=== PATIENT | female | born 1980 | race Caucasian/White ===

== ENCOUNTER 2019-09-17 18:16 | Emergency (ER) | payer MEDICAID, SELFPAY ==
[2019-09-17 18:21] VITALS: PULSE 82; RESP 14; TEMP 35.9; O2SAT 97; BMI 57.7
--- NOTE | 2019-09-17 18:37 | ECG_ITS ---
Measurements Intervals [place] Rate: 79 P: 17 RI: 132 QRS: 3 QRSD: 93 T: 12 QT: 373 QTc: 429 SINUS RHYTHM Compared to ECG 07/06/2016 01:30:08 T-wave abnormality no longer present Electronically Signed On 09-18-2019 22:04:56 CDT by Vilma Burnett M.D. [email or web address]
--- NOTE | 2019-09-17 19:07 | PC.NURSE ---
Report received from Galo, dealer account manager and care transferred to ARIANA Barth
[2019-09-17 19:09] LABS: Basophils % 0.6 %; Eosinophils # 0.2 10^3/uL (0.0-0.8); Hematocrit 36.9 % (37.0-47.0); Hemoglobin 11.2 g/dL (11.5-15.3); Lymphocytes # 1.5 10^3/uL (0.8-4.8); Lymphocytes % 20.1 %; Mean Corpuscular HGB Conc 30.4 g/dL (30.0-36.0); Mean Corpuscular Hemoglobin 24.9 pg (28.0-34.0); Mean Corpuscular Volume 82.2 fL (81-99); Mean Platelet Volume 10.8 fL (7.4-10.4); Monocytes # 0.6 10^3/uL (0.2-0.9); Monocytes % 8.4 %; Neutrophils # 4.9 10^3/uL (1.8-7.7); Neutrophils % 67.6 %; Nucleated Red Blood Cells % 0 %; Platelet Count 271 10^3/cmm (130-400); Red Blood Count 4.49 10^6/uL (4.1-5.3); Red Cell Distribution Width 15.6 % (12.1-15.1); White Blood Count 7.2 10^3/uL (4.0-10.0)
[2019-09-17] MEDS: aspirin 81 mg Chew Tablet 324 MG PO (19:17)
[2019-09-17 19:22] LABS: D Dimer <= 0.27 ug/mIFEU (0-0.59)
[2019-09-17 19:26] LABS: Alanine Aminotransferase 12 U/L (0-33); Albumin Level 4.1 g/dL (3.5-5.2); Alkaline Phosphatase 84 IU/L (35-105); Anion Gap 16.9 (5-19); Aspartate Amino Transferase 13 U/L (0-32); Blood Urea Nitrogen 8 mg/dL (6-20); Calcium 8.9 mg/dL (8.5-10.5); Carbon Dioxide 24 mmol/L (22-29); Chloride 99 mmol/L (98-107); Globulin 2.5 g/dL (1.3-4.6); Glomerular Filtration Rate 93.2 mL/min (90-130); Glucose 100 mg/dL (65-115); Lipase 27 U/L (13-60); Osmolality Calculated 278 mOsm/kg (285-295); Potassium 3.9 mmol/L (3.5-5.1); Sodium 136 mmol/L (136-145); Total Bilirubin 0.6 mg/dL (0.15-1.2); Total Protein 6.6 g/dL (6.6-8.7)
[2019-09-17 19:28] LABS: Troponin(5th) Baseline 6 ng/mL (0-10)
[2019-09-17] MEDS: ondansetron 2 mg/ML SDV 2 mL 4 MG IVP (19:30)
--- NOTE | 2019-09-17 19:30 | XR_ITS ---
WS: [id number] PORTABLE CHEST HISTORY: Chest pain COMPARISON: 07/05/2016 Lungs are clear and well expanded. No pleural effusion or pneumothorax. Cardiac size: Normal. Mediastinum/Aorta: Normal mediastinum. No osseous abnormality seen. XR/XR chest 1V portable [id number] IMPRESSION: Unremarkable portable chest.
[2019-09-17 19:32] VITALS: BP 162/100; PULSE 67; RESP 14; O2SAT 97
[2019-09-17] MEDS: ketorolac 30 mg/mL INJ 15 MG IVP (20:01)
[2019-09-17 20:02] VITALS: BP 145/86; PULSE 65; RESP 16; O2SAT 98
--- NOTE | 2019-09-17 20:07 | W.ED.CHESTPA ---
HPI - Chest Pain General: Chief Complaint: Chest Pain Stated Complaint: cp Time Seen by Provider: 09/17/19 18:37 History of Present Illness: HPI narrative: Ms. Goldsmith is a nice 38-year-old female who comes in complaining of right-sided chest pain. She states the pain began 2 weeks ago and has been constant since its onset. She describes the pain as a sharp pain that is made worse by standing and laying flat but at rest it is still present and feels sharp but less so. She denies any diaphoresis, nausea or vomiting, radiation of her pain, cough, fever, shortness of breath and she denies any injuries to this area. She not had anything like this before. She has tried Motrin, aspirin and Tylenol at home and they have helped only minimally. Associated symptoms: Deny abdominal pain, diaphoresis, dyspnea, fever(s), nausea, palpitations, syncope or vomiting Review of Systems Const: Denies: fever(s), chills, body aches, fatigue, malaise, night sweats or diaphoresis Eyes: Denies: change in vision, blurry vision or blind spots ENMT: Denies: throat pain, odynophagia, hoarseness, ear or mastoid pain, ear discharge, change in hearing or nasal discharge Card: Reports: chest pain; Denies: palpitations, irregular heart rhythm, lightheadedness, syncope, pre-syncope, dyspnea on exertion or orthopnea Resp: Denies: dyspnea, productive cough, non-productive cough, wheezing, hemoptysis or chest congestion GI: Denies: abdominal pain, nausea, vomiting, hematemesis, coffee ground emesis, heartburn, diarrhea, constipation, GI cramping, hematochezia or melena : Denies: flank pain, dysuria, urinary frequency, urinary urgency, oliguria, urinary incontinence or hematuria Musc: Denies: neck pain, back pain, extremity pain, extremity swelling, joint pain, joint swelling, joint redness, joint warmth or joint stiffness Skin/Breast: Denies: rash, pruritus, erythema, skin tenderness or jaundice Neuro: Denies: headache(s), numbness in extremities, weakness in extremities, sensory changes, lack of coordination, difficulty walking, dizziness, vertigo, confusion or Slurred speech present Endo: Denies: polyuria, polydipsia, tired all the time, cold intolerance, excessive sweating, flushing, hot flashes or heat intolerance Yosef/Lymph: Denies: easy bruising, easy bleeding, petechiae, purpura or enlarged lymph nodes All/Imm: Denies: urticaria, throat swelling, tongue swelling, facial swelling or acute wheezing PFSH ED PFSH: Medical History Anxiety Depression Surgical History H/O foot surgery Previous section S/P cholecystectomy S/P tonsillectomy Social History Smoking and tobacco status: never smoked Physical Exam Const: COMMON NORMALS: no acute distress, patient oriented x3, no limitations, healthy appearing and well nourished EXAM LIMITATIONS: no altered mental status GENERAL APPEARANCE: cooperative, well kempt and well developed HENMT: COMMON NORMALS: normocephalic, atraumatic, hearing grossly normal bilaterally, external ears normal, EAC's normal, Normal external nose present and moist oral mucous membranes HEAD & SCALP: normal to inspection, normocephalic and atraumatic FACE & SINUS: normal facial exam and face symmetric NOSE: Normal external nose present and Normal nares present EXTERNAL EAR: Yes external ears normal EXTERNAL AUDITORY CANAL: EAC's normal MOUTH: Normal oral and palatal mucosa present, lip normal and tongue normal Eye: COMMON NORMALS: Equal, round and reactive pupils present, EOMs intact bilaterally, conjunctivae normal and no scleral icterus GENERAL EYE: appearance normal, both eyes and all related structures ALIGNMENT: Yes alignment normal PERIORBITAL: periorbital findings normal EYELID: eyelids normal CONJUNCTIVA: Yes conjunctivae normal SCLERA: sclerae normal PUPIL: Yes Equal, round and reactive pupils present Neck/C-Spine: COMMON NORMALS: full ROM, no lymphadenopathy, supple, no meningeal signs and no JVD GENERAL: Yes normal visual inspection and Yes trachea midline CERVICAL SPINE: Yes cervical ROM normal Chest: COMMONS NORMALS: normal inspection of the chest and normal palpation of entire chest wall CHEST: Yes tenderness costochondral junction (Right upper chest) Resp: COMMON NORMALS: normal respiratory effort, No retractions, No use of accessory muscles and clear to auscultation bilaterally EFFORT & INSPECTION: Yes able to speak in complete sentences AUSCULTATION: clear to auscultation bilaterally, no crackles, no rales, no rhonchi and no wheezes Cardio: COMMON NORMALS: no JVD, regular rate, regular rhythm, S1 normal heart sound present, S2 normal heart sound present, No gallops present (Cardio), No clicks present (Cardio), No murmurs present (Cardio) and No rub (Cardio) RATE: regular rate RHYTHM: regular rhythm HEART SOUNDS: S1 normal heart sound present, S2 normal heart sound present, no click, no gallops, no murmurs and no rubs GI: COMMON NORMALS: Soft to palpation, non-tender, No hepatosplenomegaly present and no masses PALPATION: Yes Soft to palpation, No Tenderness to palpation present (GI), No Guarding due to palpation present (GI), No Rigid due to palpation, Yes No hepatosplenomegaly present, No Hernia present, No Palpable mass present and No Pulsatile mass present : COMMON NORMALS: Yes no CVA tenderness BLADDER/KIDNEY EXAM: Yes no CVA tenderness EXTERNAL FEMALE EXAM: No Hernia present Back/Pelvis: COMMON NORMALS: no CVA tenderness, thoracic and lumbar spine normal to inspection, no thoracic nor lumbar tenderness and thoraco-lumbar ROM normal Extremity: COMMON NORMALS: normal to inspection, full ROM, capillary refill normal, no joint enlargement, no clubbing, cyanosis or edema and no calf tenderness Neuro: COMMON NORMALS: patient oriented x3, CN's II-XII intact bilaterally, moves all extremities, no focal motor deficits and no sensory deficits noted MENINGEAL SIGNS: Yes no meningeal signs SPEECH: speech normal Psych: COMMON NORMALS: mental status grossly normal, Normal thought process present, cooperative, normal affect, speech normal and activity/motor behavior normal APPEARANCE: Yes well kempt SPEECH: Yes normal speech THOUGHT PROCESS: Normal thought process present Skin: COMMON NORMALS: no rashes or lesions noted, turgor normal, no jaundice, no petechiae and no mottling GENERAL SKIN EXAM: no rashes or lesions noted and turgor normal Course Vital Signs: Vital signs: Vital Signs Temperature 96.6 F L 09/17/19 18:21 Pulse Rate 68 09/17/19 20:58 Respiratory Rate 16 09/17/19 20:58 Blood Pressure 150/104 09/17/19 20:58 Pulse Oximetry 99 09/17/19 20:58 MDM - Chest Pain MDM Narrative: Medical decision making narrative: Josette is a very nice 38-year-old female who comes in complaining of chest pain. Her chest pain is right-sided and reproducible to palpation. Her heart score is 1. Her d-dimer is negative. She is low risk per Wells criteria so believe this rules out pulmonary embolism. She has pulses intact to all her extremities and a normal chest x-ray and I believe with a normal d-dimer this rules out dissection. Constant pain for this along with one EKG and troponin which are normal I believe rule out acute coronary syndrome. At this time the patient is feeling better after what I have given her. I think the most likely issue at this time would be costochondritis. The patient agrees to try higher dose Motrin at home along with something for her stomach and return if she worsens at all. Lab Data: Labs: Lab Results 09/17/19 09/17/19 09/17/19 Range/Units 18:37 19:00 19:00 WBC 7.2 (4.0-10.0) 10^3/ uL RBC 4.49 (4.1-5.3) 10^6/u L Hgb 11.2 L (11.5-15.3) g/dL Hct 36.9 L (37.0-47.0) % MCV 82.2 (81-99) fL MCH 24.9 L (28.0-34.0) pg MCHC 30.4 (30.0-36.0) g/dL RDW 15.6 H (12.1-15.1) % Plt Count 271 (130-400) 10^3/c mm MPV 10.8 H (7.4-10.4) fL Neut % (Auto) 67.6 % Lymph % (Auto) 20.1 % Reeves % (Auto) 8.4 % Eos % (Auto) 3.0 % Baso % (Auto) 0.6 % Neut # (Auto) 4.9 (1.8-7.7) 10^3/u L Lymph # (Auto) 1.5 (0.8-4.8) 10^3/u L Reeves # (Auto) 0.6 (0.2-0.9) 10^3/u L Eos # (Auto) 0.2 (0.0-0.8) 10^3/u L Baso # (Auto) 0.0 (0.0-0.1) 10^3/u L Nucleated RBC % (a uto) 0 % Nucleated RBCs # 0.0 /100WBC D-Dimer <= 0.27 (0-0.59) ug/mIFE U Sodium 136 (136-145) mmol/L Potassium 3.9 (3.5-5.1) mmol/L Chloride 99 (98-107) mmol/L Carbon Dioxide 24 (22-29) mmol/L Anion Gap 16.9 (5-19) BUN 8 (6-20) mg/dL Creatinine 0.7 (0.5-0.9) mg/dL GFR Calculation 93.2 (90-130) mL/min Glucose 100 (65-115) mg/dL Calculated Osmolal ity 278 L (285-295) mOsm/k g Calcium 8.9 (8.5-10.5) mg/dL Total Bilirubin 0.6 (0.15-1.2) mg/dL AST 13 (0-32) U/L ALT 12 (0-33) U/L Alkaline Phosphata se 84 (35-105) IU/L Troponin T Baselin e (0-10) ng/mL Troponin T 120 Min [place] (0-10) ng/mL Delta Troponin T (0-10) ABS# Total Protein 6.6 (6.6-8.7) g/dL Albumin 4.1 (3.5-5.2) g/dL Globulin 2.5 (1.3-4.6) g/dL Lipase 27 (13-60) U/L 09/17/19 09/17/19 Range/Units 19:00 20:19 WBC (4.0-10.0) 10^3/ uL RBC (4.1-5.3) 10^6/u L Hgb (11.5-15.3) g/dL Hct (37.0-47.0) % MCV (81-99) fL MCH (28.0-34.0) pg MCHC (30.0-36.0) g/dL RDW (12.1-15.1) % Plt Count (130-400) 10^3/c mm MPV (7.4-10.4) fL Neut % (Auto) % Lymph % (Auto) % Reeves % (Auto) % Eos % (Auto) % Baso % (Auto) % Neut # (Auto) (1.8-7.7) 10^3/u L Lymph # (Auto) (0.8-4.8) 10^3/u L Reeves # (Auto) (0.2-0.9) 10^3/u L Eos # (Auto) (0.0-0.8) 10^3/u L Baso # (Auto) (0.0-0.1) 10^3/u L Nucleated RBC % (a uto) % Nucleated RBCs # /100WBC D-Dimer (0-0.59) ug/mIFE U Sodium (136-145) mmol/L Potassium (3.5-5.1) mmol/L Chloride (98-107) mmol/L Carbon Dioxide (22-29) mmol/L Anion Gap (5-19) BUN (6-20) mg/dL Creatinine (0.5-0.9) mg/dL GFR Calculation (90-130) mL/min Glucose (65-115) mg/dL Calculated Osmolal ity (285-295) mOsm/k g Calcium (8.5-10.5) mg/dL Total Bilirubin (0.15-1.2) mg/dL AST (0-32) U/L ALT (0-33) U/L Alkaline Phosphata se (35-105) IU/L Troponin T Baselin e 6 (0-10) ng/mL Troponin T 120 Min [place] 6.00 (0-10) ng/mL Delta Troponin T 0 (0-10) ABS# Total Protein (6.6-8.7) g/dL Albumin (3.5-5.2) g/dL Globulin (1.3-4.6) g/dL Lipase (13-60) U/L Imaging Data^: CXR: My impression: No acute cardiopulmonary findings EKG Data^: EKG 1: Attestation: I personally reviewed and interpreted this EKG as follows: EKG interpretation date: 09/17/19 EKG interpretation time: 18:28 Interpretation: Normal sinus rhythm at 79 beats a minute, no acute ST or T wave changes. Discharge Plan Discharge Patient Disposition: Home, Self-Care Clinical Impression: Costalchondritis Chest pain Qualifiers: Chest pain type: chest pain on breathing Qualified Code(s): R07.1 - Chest pain on breathing Condition: Stable Prescriptions: New ibuprofen 800 mg tablet 800 mg PO TID PRN (Reason: pain) Qty: 30 RF: 0 [place] 5-325 mg tablet 1 tab PO Q6H PRN (Reason: pain) 5 Days Qty: 8 RF: 0 Zofran 4 mg tablet 4 mg PO Q6H PRN (Reason: nausea and vomiting) Qty: 20 RF: 0 No Action Tylenol 325 mg Tablet 325 mg PO QID PRN (Reason: Pain) RF: 0 aspirin 325 mg Tablet 325 mg PO Q4H PRN (Reason: Pain) RF: 0 ibuprofen 200 mg Tablet 200 mg PO Q6H PRN (Reason: Pain) RF: 0 Discharge Orders: Discharge Order (Routine); Ordered 09/17/19 Ordered By: Julia Salmon Referrals: Colette Moran FNP [Primary Care Provider] - 1-3 days Discharge Diet: Advance as tolerated Discharge Activity: Increase activity as tolerated Patient Instructions: Chest Pain (ED), Costochondritis (ED) Activity Restrictions/Additional Instructions: Please return to the ER immediately for any of the signs or symptoms listed on your discharge instruction sheets, worsening/changing of your symptoms, you are not getting better as quickly as expected, or for ANY other cause or concerns. If your pain persists for more than another 24 hours please return to the ER for recheck. 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
[2019-09-17 20:50] LABS: Troponin 5 2HR Delta 0 ABS# (0-10)
[2019-09-17 20:58] VITALS: BP 150/104; PULSE 68; RESP 16; O2SAT 99
== END 2019-09-17 21:00 | disposition home or self-care (01) ==
PROVIDERS: Emergency Provider Emergency Medicine; PCP Nurse Practitioner
DX: M94.0 Chondrocostal junction syndrome [Tietze] (principal); R07.1 Chest pain on breathing
CPT/HCPCS: 12345; 36415; 71045; 80053; 83690; 84484; 85025; 85378; 93005; 96374; 96375; 99282; 99284; J1885; J2405

== ENCOUNTER 2019-09-20 17:01 | Emergency (ER) | payer MEDICAID, SELFPAY ==
[2019-09-20 17:26] VITALS: BP 128/83; PULSE 101; RESP 18; TEMP 37.4; O2SAT 97; BMI 57.2
--- NOTE | 2019-09-20 17:44 | XR_ITS ---
WS: [id number] PORTABLE CHEST HISTORY: cough fever COMPARISON: 09/17/2019 Lungs are clear and well expanded. No pleural effusion or pneumothorax. Cardiac size: Normal. Mediastinum/Aorta: Normal mediastinum. No osseous abnormality seen. XR/XR chest 1V portable [id number] IMPRESSION: Unremarkable portable chest.
--- NOTE | 2019-09-20 17:55 | W.ED.CHESTPA ---
HPI - Chest Pain General: Chief Complaint: Chest Pain Stated Complaint: CP, fever, near syncope Time Seen by Provider: 09/20/19 17:44 Source: patient Mode of arrival: ambulatory Limitations: no limitations History of Present Illness: HPI narrative: Patient comes in today for complaints of centralized chest discomfort, and fever. Patient was seen 3 days ago and was diagnosed with costochondritis. Patient had talked further with her primary care physician and she felt it was more muscle and was given steroids for further treatment. Today patient felt lightheaded this morning when she got up and noticed that she was running a fever of 101. Patient appears mildly unwell. Patient appears in mild pain. Patient's was checked out cardiovascularly 2 days ago and was cleared at that time. MD complaint: chest heaviness Associated symptoms: Reports fever(s) Review of Systems General: Reports: 10 or more systems reviewed and unremarkable except in HPI and below Const: Reports: fever(s) Card: Reports: chest pain [facility] [place] [facility] PFSH: Medical History (Updated 09/20/19 @ 19:55 by ANTONY Durand) Anxiety Depression Surgical History H/O foot surgery Previous section S/P cholecystectomy S/P tonsillectomy Social History Smoking and tobacco status: never smoked Physical Exam Const: COMMON NORMALS: no acute distress and patient oriented x3 GENERAL APPEARANCE: cooperative HENMT: COMMON NORMALS: normocephalic, TM's normal bilaterally and Normal external nose present HEAD & SCALP: normal to inspection and normocephalic NOSE: Normal external nose present TYMPANIC MEMBRANE: TM's normal bilaterally MOUTH: Normal oral and palatal mucosa present THROAT: posterior oropharynx normal Eye: GENERAL EYE: appearance normal, both eyes and all related structures Neck/C-Spine: COMMON NORMALS: full ROM Lymph: LYMPHATIC: no lymphadenopathy noted Chest: COMMONS NORMALS: negative for normal palpation of entire chest wall (Mild anterior chest wall tenderness.) Resp: COMMON NORMALS: normal respiratory effort EFFORT & INSPECTION: Yes able to speak in complete sentences Cardio: COMMON NORMALS: regular rate and regular rhythm RATE: regular rate RHYTHM: regular rhythm GI: COMMON NORMALS: non-tender : COMMON NORMALS: Yes no CVA tenderness BLADDER/KIDNEY EXAM: Yes no CVA tenderness Back/Pelvis: COMMON NORMALS: no CVA tenderness and thoracic and lumbar spine normal to inspection Extremity: COMMON NORMALS: normal to inspection Neuro: COMMON NORMALS: patient oriented x3 and moves all extremities Psych: COMMON NORMALS: mental status grossly normal and cooperative Skin: COMMON NORMALS: no rashes or lesions noted GENERAL SKIN EXAM: no rashes or lesions noted Course Vital Signs: Vital signs: Vital Signs Temperature 99.3 F 09/20/19 17:26 Pulse Rate 91 09/20/19 22:00 Respiratory Rate 20 H 09/20/19 22:00 Blood Pressure 152/100 09/20/19 22:00 Pulse Oximetry 96 09/20/19 22:00 MDM - Chest Pain MDM Narrative: Medical decision making narrative: Patient comes in today for complaints of chest discomfort and fever. Patient reports for the last 3 to 4 days she has had similar symptoms and was evaluated 3 days ago and diagnosed with costochondritis. Since then her primary care ordered some steroid due to concern that it may be related to muscle pain. Exam notes decreased breath sounds, heart rates regular. Skin is warm and dry color is pink. No edema in the extremities. Vital signs are normal. Patient did report 101 temperature at home. Differential diagnosis includes pleurisy, pneumonia, pericarditis, myocarditis, bronchitis, lower respiratory infection, viral syndrome. Laboratory values noted a white blood cell count 20,000, CRP was elevated, troponin was negative. Influenza test was negative. Chest x-ray noted no obvious signs of infiltrate. D-dimer was negative. COVID testing was done and is outstanding. Reviewed exam with patient suspect may be a pleurisy secondary to a bacterial infection. Will start patient on Rocephin and continue with antibiotics as directed. Patient reported understanding and agreed to plan. Lab Data: Labs: Lab Results 09/20/19 09/20/19 09/20/19 Range/Units 18:10 18:10 18:10 WBC 20.0 H (4.0-10.0) 10^3/ uL RBC 4.59 (4.1-5.3) 10^6/u L Hgb 11.6 (11.5-15.3) g/dL Hct 37.7 (37.0-47.0) % MCV 82.1 (81-99) fL MCH 25.3 L (28.0-34.0) pg MCHC 30.8 (30.0-36.0) g/dL RDW 15.6 H (12.1-15.1) % Plt Count 258 (130-400) 10^3/c mm MPV 11.0 H (7.4-10.4) fL Neut % (Auto) 94.9 % Lymph % (Auto) 1.0 % [place] % (Auto) 2.9 % Eos % (Auto) 0.1 % Baso % (Auto) 0.3 % Neut # (Auto) 19.0 H (1.8-7.7) 10^3/u L Lymph # (Auto) 0.2 L (0.8-4.8) 10^3/u L [place] # (Auto) 0.6 (0.2-0.9) 10^3/u L Eos # (Auto) 0.0 (0.0-0.8) 10^3/u L Baso # (Auto) 0.1 (0.0-0.1) 10^3/u L Nucleated RBC % (a uto) 0 % Nucleated RBCs # 0.0 /100WBC D-Dimer (0-0.59) ug/mIFE U Sodium 135 L (136-145) mmol/L Potassium 4.0 (3.5-5.1) mmol/L Chloride 98 (98-107) mmol/L Carbon Dioxide 24 (22-29) mmol/L Anion Gap 17.0 (5-19) BUN 9 (6-20) mg/dL Creatinine 0.6 (0.5-0.9) mg/dL GFR Calculation 111.3 (90-130) mL/min Glucose 149 H (65-115) mg/dL Calculated Osmolal ity 279 L (285-295) mOsm/k g Lactic Acid 1.8 (0.5-2.2) mmol/L Calcium 8.5 (8.5-10.5) mg/dL Total Bilirubin 1.4 H (0.15-1.2) mg/dL AST 27 (0-32) U/L ALT 24 (0-33) U/L Alkaline Phosphata se 81 (35-105) IU/L Troponin T Gen 5 n g/L (0-10) ng/mL C-Reactive Protein (0.0-4.9) mg/L Total Protein 6.4 L (6.6-8.7) g/dL Albumin 3.8 (3.5-5.2) g/dL Globulin 2.6 (1.3-4.6) g/dL Urine Color (Yellow) Urine Appearance (CLEAR) Urine pH (5-7) Ur Specific Gravit y (1.005-1.030) Urine Protein (Negative) Urine Glucose (UA) (Normal) Urine Ketones (Negative) Urine Blood (Negative) Urine Nitrate (Negative) Urine Bilirubin (NEGATIVE) Urine Urobilinogen (Negative) mg/dL Ur Leukocyte Lorri ase (Negative) Urine RBC (0-2) /hpf Urine WBC (0-5) /hpf Ur Squamous Epith Cells (0-5) Urine Bacteria (NONE) Influenza Type A A g (Negative) Influenza Type B A g (Negative) 09/20/19 09/20/19 09/20/19 Range/Units 18:10 18:10 18:10 WBC (4.0-10.0) 10^3/ uL RBC (4.1-5.3) 10^6/u L Hgb (11.5-15.3) g/dL Hct (37.0-47.0) % MCV (81-99) fL MCH (28.0-34.0) pg MCHC (30.0-36.0) g/dL RDW (12.1-15.1) % Plt Count (130-400) 10^3/c mm MPV (7.4-10.4) fL Neut % (Auto) % Lymph % (Auto) % [place] % (Auto) % Eos % (Auto) % Baso % (Auto) % Neut # (Auto) (1.8-7.7) 10^3/u L Lymph # (Auto) (0.8-4.8) 10^3/u L [place] # (Auto) (0.2-0.9) 10^3/u L Eos # (Auto) (0.0-0.8) 10^3/u L Baso # (Auto) (0.0-0.1) 10^3/u L Nucleated RBC % (a uto) % Nucleated RBCs # /100WBC D-Dimer 0.36 (0-0.59) ug/mIFE U Sodium (136-145) mmol/L Potassium (3.5-5.1) mmol/L Chloride (98-107) mmol/L Carbon Dioxide (22-29) mmol/L Anion Gap (5-19) BUN (6-20) mg/dL Creatinine (0.5-0.9) mg/dL GFR Calculation (90-130) mL/min Glucose (65-115) mg/dL Calculated Osmolal ity (285-295) mOsm/k g Lactic Acid (0.5-2.2) mmol/L Calcium (8.5-10.5) mg/dL Total Bilirubin (0.15-1.2) mg/dL AST (0-32) U/L ALT (0-33) U/L Alkaline Phosphata se (35-105) IU/L Troponin T Gen 5 n g/L 8 (0-10) ng/mL C-Reactive Protein 41.2 H (0.0-4.9) mg/L Total Protein (6.6-8.7) g/dL Albumin (3.5-5.2) g/dL Globulin (1.3-4.6) g/dL Urine Color (Yellow) Urine Appearance (CLEAR) Urine pH (5-7) Ur Specific Gravit y (1.005-1.030) Urine Protein (Negative) Urine Glucose (UA) (Normal) Urine Ketones (Negative) Urine Blood (Negative) Urine Nitrate (Negative) Urine Bilirubin (NEGATIVE) Urine Urobilinogen (Negative) mg/dL Ur Leukocyte Lorri ase (Negative) Urine RBC (0-2) /hpf Urine WBC (0-5) /hpf Ur Squamous Epith Cells (0-5) Urine Bacteria (NONE) Influenza Type A A g (Negative) Influenza Type B A g (Negative) 09/20/19 09/20/19 Range/Units 19:30 19:30 WBC (4.0-10.0) 10^3/ uL RBC (4.1-5.3) 10^6/u L Hgb (11.5-15.3) g/dL Hct (37.0-47.0) % MCV (81-99) fL MCH (28.0-34.0) pg MCHC (30.0-36.0) g/dL RDW (12.1-15.1) % Plt Count (130-400) 10^3/c mm MPV (7.4-10.4) fL Neut % (Auto) % Lymph % (Auto) % [place] % (Auto) % Eos % (Auto) % Baso % (Auto) % Neut # (Auto) (1.8-7.7) 10^3/u L Lymph # (Auto) (0.8-4.8) 10^3/u L [place] # (Auto) (0.2-0.9) 10^3/u L Eos # (Auto) (0.0-0.8) 10^3/u L Baso # (Auto) (0.0-0.1) 10^3/u L Nucleated RBC % (a uto) % Nucleated RBCs # /100WBC D-Dimer (0-0.59) ug/mIFE U Sodium (136-145) mmol/L Potassium (3.5-5.1) mmol/L Chloride (98-107) mmol/L Carbon Dioxide (22-29) mmol/L Anion Gap (5-19) BUN (6-20) mg/dL Creatinine (0.5-0.9) mg/dL GFR Calculation (90-130) mL/min Glucose (65-115) mg/dL Calculated Osmolal ity (285-295) mOsm/k g Lactic Acid (0.5-2.2) mmol/L Calcium (8.5-10.5) mg/dL Total Bilirubin (0.15-1.2) mg/dL AST (0-32) U/L ALT (0-33) U/L Alkaline Phosphata se (35-105) IU/L Troponin T Gen 5 n g/L (0-10) ng/mL C-Reactive Protein (0.0-4.9) mg/L Total Protein (6.6-8.7) g/dL Albumin (3.5-5.2) g/dL Globulin (1.3-4.6) g/dL Urine Color Yellow (Yellow) Urine Appearance Hazy A (CLEAR) Urine pH 7 (5-7) Ur Specific Gravit y 1.005 (1.005-1.030) Urine Protein Neg (Negative) Urine Glucose (UA) Norm (Normal) Urine Ketones Negative (Negative) Urine Blood Neg (Negative) Urine Nitrate Negative (Negative) Urine Bilirubin Neg (NEGATIVE) Urine Urobilinogen Norm (Negative) mg/dL Ur Leukocyte Lorri ase Negative (Negative) Urine RBC 0-4 H (0-2) /hpf Urine WBC None (0-5) /hpf Ur Squamous Epith Cells 0-4 H (0-5) Urine Bacteria Trace (NONE) Influenza Type A A g Negative (Negative) Influenza Type B A g Negative (Negative) EKG Data^: EKG 1: Attestation: I personally reviewed and interpreted this EKG as follows: (1740, sinus tachy, rate 101 bpm regular, no ST elevation, no ectopy) Discharge Plan Discharge Patient Disposition: Home, Self-Care Clinical Impression: Pleurisy Condition: Stable Prescriptions: New cephalexin 500 mg capsule 500 mg PO Q6H 7 Days Qty: 28 RF: 0 No Action ibuprofen 800 mg tablet 800 mg PO TID PRN (Reason: pain) Qty: 30 RF: 0 hydrocodone-acetaminophen [[place]] 5-325 mg tablet 1 tab PO Q6H PRN (Reason: pain) 5 Days Qty: 8 RF: 0 ondansetron HCl [Zofran] 4 mg tablet 4 mg PO Q6H PRN (Reason: nausea and vomiting) Qty: 20 RF: 0 cyclobenzaprine 10 mg Tablet 10 mg PO TID PRN (Reason: Muscle Spasm) RF: 0 prednisone 20 mg Tablet 20 mg PO DAILY RF: 0 acetaminophen 500 mg Tablet 500 - 1,500 mg PO PRN RF: 0 Discharge Orders: Discharge Order (Routine); Ordered 09/20/19 Ordered By: Calin Fabian Referrals: Colette Moran FNP [Primary Care Provider] - Discharge Diet: Usual diet Discharge Activity: Increase activity as tolerated Patient Instructions: Pleurisy (ED) Activity Restrictions/Additional Instructions: Activity as tolerated. Drink plenty of fluids and take antibiotics as directed. Continue with routine medications as ordered. Self quarantine until results from COVID testing. If you have not heard from hospital in 3 days contact the emergency room charge nurse for assistance on results. Continue with Tylenol and ibuprofen for pain. Follow-up with primary care in 1 week for recheck. Return to the ER for worsening symptoms or new concerns. Coding Level of Care Code ED Cafeteria Aide for Chg Fwd Exam Comprehensive
[2019-09-20 18:29] LABS: Basophils # 0.1 10^3/uL (0.0-0.1); Basophils % 0.3 %; Eosinophils % 0.1 %; Hematocrit 37.7 % (37.0-47.0); Hemoglobin 11.6 g/dL (11.5-15.3); Lymphocytes # 0.2 10^3/uL (0.8-4.8); Mean Corpuscular HGB Conc 30.8 g/dL (30.0-36.0); Mean Corpuscular Hemoglobin 25.3 pg (28.0-34.0); Mean Corpuscular Volume 82.1 fL (81-99); Monocytes # 0.6 10^3/uL (0.2-0.9); Monocytes % 2.9 %; Neutrophils % 94.9 %; Nucleated Red Blood Cells % 0 %; Platelet Count 258 10^3/cmm (130-400); Red Blood Count 4.59 10^6/uL (4.1-5.3); Red Cell Distribution Width 15.6 % (12.1-15.1)
[2019-09-20] MEDS: sodium chloride 0.9% 1,000 ML 999 ML IV (18:35)
[2019-09-20 18:44] LABS: Lactic Sepsis W/Reflex 1.8 mmol/L (0.5-2.2)
[2019-09-20 18:45] LABS: Alanine Aminotransferase 24 U/L (0-33); Albumin Level 3.8 g/dL (3.5-5.2); Alkaline Phosphatase 81 IU/L (35-105); Aspartate Amino Transferase 27 U/L (0-32); Blood Urea Nitrogen 9 mg/dL (6-20); Calcium 8.5 mg/dL (8.5-10.5); Carbon Dioxide 24 mmol/L (22-29); Chloride 98 mmol/L (98-107); Globulin 2.6 g/dL (1.3-4.6); Glomerular Filtration Rate 111.3 mL/min (90-130); Glucose 149 mg/dL (65-115); Osmolality Calculated 279 mOsm/kg (285-295); Sodium 135 mmol/L (136-145); Total Bilirubin 1.4 mg/dL (0.15-1.2); Total Protein 6.4 g/dL (6.6-8.7)
[2019-09-20 18:47] LABS: Troponin T (5th) Once 8 ng/mL (0-10)
[2019-09-20 19:12] LABS: C Reactive Protein 41.2 mg/L (0.0-4.9)
[2019-09-20 21:03] VITALS: BP 141/95; PULSE 83; RESP 15; O2SAT 98
[2019-09-20 21:33] LABS: Add Urine Microscopic? YES; Bilirubin Urine Neg (NEGATIVE); Blood Urine Neg (Negative); Glucose Urine UA Norm (Normal); Ketones Urine Negative (Negative); Leukocyte Esterase Urine Negative (Negative); Nitrate Urine Negative (Negative); Protein Urine Neg (Negative); Specific Gravity, Urine 1.005 (1.005-1.030); Urine Appearance Hazy (CLEAR); Urine Color Yellow (Yellow); Urobilinogen Urine Norm (Negative); pH Urine 7 (5-7)
[2019-09-20 21:39] LABS: Add Urine Culture? No; Bacteria Urine TRACE; RBC Urine 0-4 /hpf (0-2); Squamous Epithelial Cell Urine 0-4 (0-5)
[2019-09-20 22:00] VITALS: BP 152/100; PULSE 91; RESP 20; O2SAT 96
[2019-09-20 22:10] LABS: Influenza A by IFA Negative (Negative); Influenza B by IFA Negative (Negative)
[2019-09-20 22:23] LABS: D Dimer 0.36 ug/mIFEU (0-0.59)
[2019-09-20] MEDS: cefTRIAXone 1,000 MG in sodium chloride 0.9% (plus) 50 ML 100 MG IV (22:56)
[2019-09-20 23:00] VITALS: BP 143/84; PULSE 82; RESP 14; O2SAT 98
[2019-09-20 23:45] VITALS: BP 149/79; PULSE 82; RESP 16; O2SAT 99
[2019-09-22 11:47] LABS: Quest SARS-CoV-2 RNA NOT DETECTED (NOT DETECTED)
== END 2019-09-20 23:46 | disposition home or self-care (01) ==
PROVIDERS: Emergency Provider Nurse Practitioner Family; PCP Nurse Practitioner
DX: R09.1 Pleurisy (principal)
CPT/HCPCS: 12345; 71045; 80053; 81001; 83605; 84484; 85025; 85378; 86140; 87040; 87635; 87804; 96360; 96361; 96365; 99283; 99284; J0696; J7030

== ENCOUNTER 2019-09-22 00:06 | Emergency (ER) | payer MEDICAID, SELFPAY ==
[2019-09-22 00:11] VITALS: BP 152/91; PULSE 97; RESP 20; TEMP 37.1; O2SAT 94; BMI 57.2
[2019-09-22 00:29] VITALS: PULSE 68
--- NOTE | 2019-09-22 00:45 | W.ED.EXTPRO ---
HPI - Extremity Problem General: Chief complaint: Extremity Problem,Nontraumatic Stated complaint: SUSPECTED SPIDER BITE ON R ARM Time Seen by Provider: 09/22/19 00:30 Source: patient Mode of arrival: ambulatory Limitations: no limitations History of Present Illness: HPI Narrative: Patient this evening noted a bruise to her right upper arm which she thinks may be a spider bite. Patient reports on Tuesday she had noticed a spider run across her chest but did not think much of it. Since that time patient has felt ill and has had nonspecific symptoms. Patient appears well. Patient appears in no acute distress. Patient was seen last night by this clinician for concerns of respiratory difficulty. Patient had COVID testing done and we are waiting results still. Review of Systems General: Reports: 10 or more systems reviewed and unremarkable except in HPI and below Skin/Breast: Reports: changing lesions [facility] ED PFSH: Medical History (Updated 09/22/19 @ 00:46 by ANTONY Durand) Anxiety Depression Surgical History H/O foot surgery Previous section S/P cholecystectomy S/P tonsillectomy Social History Smoking and tobacco status: never smoked Physical Exam Const: COMMON NORMALS: no acute distress and patient oriented x3 GENERAL APPEARANCE: cooperative HENMT: COMMON NORMALS: normocephalic and Normal external nose present HEAD & SCALP: normal to inspection and normocephalic NOSE: Normal external nose present MOUTH: Normal oral and palatal mucosa present THROAT: posterior oropharynx normal Eye: GENERAL EYE: appearance normal, both eyes and all related structures Neck/C-Spine: COMMON NORMALS: full ROM Lymph: LYMPHATIC: no lymphadenopathy noted Chest: COMMONS NORMALS: normal inspection of the chest Resp: COMMON NORMALS: normal respiratory effort EFFORT & INSPECTION: Yes able to speak in complete sentences Cardio: COMMON NORMALS: regular rate and regular rhythm RATE: regular rate RHYTHM: regular rhythm GI: COMMON NORMALS: non-tender : COMMON NORMALS: Yes no CVA tenderness BLADDER/KIDNEY EXAM: Yes no CVA tenderness Back/Pelvis: COMMON NORMALS: no CVA tenderness and thoracic and lumbar spine normal to inspection Extremity: COMMON NORMALS: normal to inspection Neuro: COMMON NORMALS: patient oriented x3 and moves all extremities Psych: COMMON NORMALS: mental status grossly normal and cooperative Skin: NARRATIVE SKIN EXAM: Patient has an area of ecchymosis approximately 3 cm circular to the right upper arm. Patient also has a surrounding area of redness that is approximately 4 cm from the edge of the ecchymotic area. Course Vital Signs: Vital signs: Vital Signs Temperature 98.8 F 09/22/19 00:11 Pulse Rate 68 09/22/19 00:29 Respiratory Rate 20 H 09/22/19 00:11 Blood Pressure 152/91 09/22/19 00:11 Pulse Oximetry 94 09/22/19 00:11 MDM - Extremity (Nontraumatic) MDM Narrative: Medical decision making narrative: Patient comes in today for concerns of insect bite to the right upper arm. Patient has been seen last night for general symptoms of malaise and some low-grade fever. Laboratory values last night indicated no significant abnormality except maybe some mild elevation in bilirubin at 1.4. The remainder of labs including d-dimer are negative. Differential diagnosis includes acute reaction to insect bite probable spider, allergic reaction, brown recluse spider bite, malingering. Will adjust patient steroid to give her a more appropriate dose for her size. Patient will continue with antihistamine routinely and will also continue with antibiotic as was started last night. Case management will be consulted for follow-up with wound care specialty for monitoring of the site. Discharge Plan Discharge Patient Disposition: Home, Self-Care Clinical Impression: Allergic reaction to spider bite Qualifiers: Encounter type: initial encounter Injury intent: accidental or unintentional Qualified Code(s): T63.301A - Toxic effect of unspecified spider venom, accidental (unintentional), initial encounter Condition: Stable Prescriptions: New cetirizine 10 mg tablet 10 mg PO BID Qty: 30 RF: 0 prednisone 20 mg tablet 20 mg PO BID Qty: 10 RF: 0 No Action ibuprofen 800 mg tablet 800 mg PO TID PRN (Reason: pain) Qty: 30 RF: 0 ondansetron HCl [Zofran] 4 mg tablet 4 mg PO Q6H PRN (Reason: nausea and vomiting) Qty: 20 RF: 0 cyclobenzaprine 10 mg Tablet 10 mg PO TID PRN (Reason: Muscle Spasm) RF: 0 prednisone 20 mg Tablet 20 mg PO DAILY RF: 0 acetaminophen 500 mg Tablet 500 - 1,500 mg PO PRN RF: 0 cephalexin 500 mg capsule 500 mg PO Q6H 7 Days Qty: 28 RF: 0 Discharge Orders: Discharge Order (Routine); Ordered 09/22/19 Ordered By: Calin Fabian Referrals: Colette Moran FNP [Primary Care Provider] - Discharge Diet: Usual diet Discharge Activity: Increase activity as tolerated Activity Restrictions/Additional Instructions: Home and rest. Drink plenty of fluids with medications. Prednisone can make you feel jittery which is normal. Use cetirizine as directed. Have the wound rechecked in 3 to 5 days. You may need further evaluation with wound care. Case management will contact you on Tuesday for further evaluation. Follow-up with primary care in 1 week. Coding Level of Care Code ED Typing Checker for Inga Fwayo Exam Comprehensive
[2019-09-22] MEDS: dexamethasone 10 mg/mL INJ IM (01:11)
[2019-09-22] MEDS: triamcinolone 40 mg/mL SDV IM (01:13)
[2019-09-22] MEDS: cetirizine 10 mg Tablet PO (01:14)
[2019-09-22 01:32] VITALS: PULSE 102; RESP 16; O2SAT 98
--- NOTE | 2019-09-25 13:15 | DCPLANNER ---
technology adoption manager had message to schedule a follow up appointment for patient with [facility]ound [facility]. technology adoption manager called [facility], spoke with Maritza, a follow up appointment is scheduled for Saturday, September 28, 2019 at 1:[address] Jackson. technology adoption manager called patient and informed patient of the scheduled appointment.
--- NOTE | 2019-10-11 13:51 | DCPLANNER ---
Patient did attend appointment scheduled for 09.28.19 with [facility].
== END 2019-09-22 01:33 | disposition home or self-care (01) ==
PROVIDERS: Emergency Provider Nurse Practitioner Family; PCP Nurse Practitioner
DX: T63.301A Toxic effect of unspecified spider venom, accidental (unintentional), initial encounter (principal); T78.40XA Allergy, unspecified, initial encounter
CPT/HCPCS: 12345; 96372; 96375; 99281; 99283; J1100; J3301

== ENCOUNTER 2019-09-24 15:09 | Emergency (ER) | payer MEDICAID, SELFPAY ==
[2019-09-24 15:27] VITALS: BP 149/90; PULSE 88; RESP 14; TEMP 36.1; O2SAT 98; BMI 57.2
--- NOTE | 2019-09-24 16:42 | W.ED.SKABFB ---
Documented by User: [email or web address] Nicole 09/24/19 18:40 HPI - Skin/Abscess/Foreign Bdy General: Chief complaint: Skin/Abscess/Foreign Body Stated complaint: spider bite Time Seen by Provider: 09/24/19 16:31 History of Present Illness: HPI narrative: Patient is a 38-year-old female who comes to the ED with skin lesion. Patient was seen here on Tuesday for same complaint. Patient was diagnosed with allergic reaction to possible spider bite and was sent home on steroid and antibiotic. Patient has been taking both medications since discharge and has not missed a dose. Associated symptoms: Deny chills, fever(s), nausea or vomiting Review of Systems Const: Denies: fever(s), chills or fatigue Eyes: Denies: change in vision or eye discomfort ENMT: Denies: throat pain, odynophagia, nasal discharge or nasal congestion Card: Denies: chest pain, palpitations, edema, swelling of feet/ankles, dyspnea on exertion or orthopnea Resp: Denies: dyspnea, productive cough or non-productive cough GI: Denies: abdominal pain, nausea, vomiting, diarrhea, constipation or hematochezia : Denies: flank pain, dysuria or hematuria Musc: Denies: neck pain, back pain or extremity swelling Skin/Breast: Reports: rash; Denies: new lesions Neuro: Denies: headache(s), numbness in extremities or weakness in extremities PFSH ED PFSH: Medical History Anxiety Depression Surgical History H/O foot surgery Previous section S/P cholecystectomy S/P tonsillectomy Social History Smoking and tobacco status: never smoked Physical Exam Const: COMMON NORMALS: patient oriented x3 HENMT: COMMON NORMALS: normocephalic HEAD & SCALP: normocephalic MOUTH: Normal oral and palatal mucosa present THROAT: posterior oropharynx normal and uvula midline Neck/C-Spine: COMMON NORMALS: supple GENERAL: Yes normal visual inspection Resp: COMMON NORMALS: normal respiratory effort, No retractions, No use of accessory muscles and clear to auscultation bilaterally AUSCULTATION: clear to auscultation bilaterally Cardio: COMMON NORMALS: regular rate, regular rhythm, S1 normal heart sound present, S2 normal heart sound present, No gallops present (Cardio), No clicks present (Cardio), No murmurs present (Cardio) and Peripheral pulses 2+ throughout RATE: regular rate RHYTHM: regular rhythm HEART SOUNDS: S1 normal heart sound present and S2 normal heart sound present PERIPHERAL PULSES: Peripheral pulses 2+ throughout GI: COMMON NORMALS: Normal to inspection, nondistended, normoactive bowel sounds present, Soft to palpation, non-tender and no masses PALPATION: Yes Soft to palpation : COMMON NORMALS: Yes no CVA tenderness BLADDER/KIDNEY EXAM: Yes no CVA tenderness Back/Pelvis: COMMON NORMALS: no CVA tenderness Neuro: COMMON NORMALS: patient oriented x3 and moves all extremities Course Vital Signs: Vital signs: Vital Signs Temperature 96.9 F L 09/24/19 15:27 Pulse Rate 88 09/24/19 17:56 Respiratory Rate 18 09/24/19 17:56 Blood Pressure 141/87 09/24/19 17:56 Pulse Oximetry 98 09/24/19 17:56 MDM - Skin/Abscess/Foreign Bdy MDM Narrative: Medical decision making narrative: Care of pt was transferred over to Kyle Galvan at end of my shift at 5pm. I discussed pt case with Cole before handing pt off with him. JRP Discharge Plan Discharge Patient Disposition: Home, Self-Care Clinical Impression: Allergic reaction to spider bite Qualifiers: Encounter type: initial encounter Injury intent: accidental or unintentional Qualified Code(s): T63.301A - Toxic effect of unspecified spider venom, accidental (unintentional), initial encounter Condition: Stable Prescriptions: New hydroxyzine HCl 25 mg tablet 25 mg PO Q8H PRN (Reason: itching) Qty: 14 RF: 0 hydrocodone-acetaminophen 5-325 mg tablet 1 tab PO Q6H PRN (Reason: pain) Qty: 14 RF: 0 Zithromax Z-Drake 250 mg tablet See Rx Instructions .ROUTE .COMPLEX Qty: 6 RF: 0 Discontinued cephalexin 500 mg capsule 500 mg PO Q6H 7 Days Qty: 28 RF: 0 cetirizine 10 mg tablet 10 mg PO BID Qty: 30 RF: 0 No Action ibuprofen 800 mg tablet 800 mg PO TID PRN (Reason: pain) Qty: 30 RF: 0 ondansetron HCl [Zofran] 4 mg tablet 4 mg PO Q6H PRN (Reason: nausea and vomiting) Qty: 20 RF: 0 acetaminophen 500 mg Tablet 500 - 1,500 mg PO PRN RF: 0 prednisone 20 mg tablet 20 mg PO BID Qty: 10 RF: 0 Benadryl 25 mg Capsule 25 mg PO PRN RF: 0 Discharge Orders: Discharge Order (Routine); Ordered 09/24/19 Ordered By: Logan Madera Referrals: Colette Moran FNP [Primary Care Provider] - Discharge Diet: Advance as tolerated Discharge Activity: Resume usual activity Patient Instructions: Brown Recluse Spider Bite (ED) Activity Restrictions/Additional Instructions: Stop medicine as directed take new medicine as directed follow-up with your family provider if no significant improvement Discharge Date/Time: 09/24/19 18:03 Coding Level of Care Code ED Electronic Engineering Draftsperson for Chg Fwd Exam Comprehensive Documented by User: ANTONY Chan 09/24/19 17:20 HPI - Skin/Abscess/Foreign Bdy General: Chief complaint: Skin/Abscess/Foreign Body Stated complaint: spider bite Time Seen by Provider: 09/24/19 16:31 Review of Systems Skin/Breast: Reports: rash (abdomen now), pruritus, erythema and skin pain PFSH ED PFSH: Medical History Anxiety Depression Surgical History H/O foot surgery Previous section S/P cholecystectomy S/P tonsillectomy Social History Smoking and tobacco status: never smoked Physical Exam Skin: RASHES: rashes noted and other (Patient has on her right lateral humerus area she has a small bruise in area about half dollar size and center with a red blanching macular type rash extending up about 3 to 4 inches in a regular fashion around the bruised area and then she has some maculopapular areas on her abdomen scattered no confluency noted with those mild erythema around the rash patient has no fever neurovascular status distal is intact no other complaints or problems) Course Vital Signs: Vital signs: Vital Signs Temperature 96.9 F L 09/24/19 15:27 Pulse Rate 88 09/24/19 17:56 Respiratory Rate 18 09/24/19 17:56 Blood Pressure 141/87 09/24/19 17:56 Pulse Oximetry 98 09/24/19 17:56 Discharge Plan Discharge Patient Disposition: Home, Self-Care Clinical Impression: Allergic reaction to spider bite Qualifiers: Encounter type: initial encounter Injury intent: accidental or unintentional Qualified Code(s): T63.301A - Toxic effect of unspecified spider venom, accidental (unintentional), initial encounter Condition: Stable Prescriptions: New hydroxyzine HCl 25 mg tablet 25 mg PO Q8H PRN (Reason: itching) Qty: 14 RF: 0 hydrocodone-acetaminophen 5-325 mg tablet 1 tab PO Q6H PRN (Reason: pain) Qty: 14 RF: 0 Zithromax Z-Drake 250 mg tablet See Rx Instructions .ROUTE .COMPLEX Qty: 6 RF: 0 Discontinued cephalexin 500 mg capsule 500 mg PO Q6H 7 Days Qty: 28 RF: 0 cetirizine 10 mg tablet 10 mg PO BID Qty: 30 RF: 0 No Action ibuprofen 800 mg tablet 800 mg PO TID PRN (Reason: pain) Qty: 30 RF: 0 ondansetron HCl [Zofran] 4 mg tablet 4 mg PO Q6H PRN (Reason: nausea and vomiting) Qty: 20 RF: 0 acetaminophen 500 mg Tablet 500 - 1,500 mg PO PRN RF: 0 prednisone 20 mg tablet 20 mg PO BID Qty: 10 RF: 0 Benadryl 25 mg Capsule 25 mg PO PRN RF: 0 Discharge Orders: Discharge Order (Routine); Ordered 09/24/19 Ordered By: Logan Madera Referrals: Colette Moran, [employer] [facility] [employer] [Primary Care Provider] - Discharge Diet: Advance as tolerated Discharge Activity: Resume usual activity Patient Instructions: Brown Recluse Spider Bite (ED) Activity Restrictions/Additional Instructions: Stop medicine as directed take new medicine as directed follow-up with your family provider if no significant improvement Discharge Date/Time: 09/24/19 18:03 Coding Level of Care Code ED Electronic Engineering Draftsperson for Inga Fwd Exam Comprehensive
--- NOTE | 2019-09-24 17:53 | PC.NURSE ---
PATIENT REFUSED NORCO BC/ SHE DIDNT WANT A NARCOTIC BUT STATED SHE DIDNT WANT TYLENOL OR NAPROXEN OR IBUPROPFEN STATING SHE DIDNT KNOW WHAT SHE WANTED THAT SHE WANTED THE PAIN TO GO AWAY AND FEELS LIKE SHE SHOULD HAVE HAD AN IV NERISSA INFORMED
[2019-09-24 17:56] VITALS: BP 141/87; PULSE 88; RESP 18; O2SAT 98
== END 2019-09-24 18:03 | disposition home or self-care (01) ==
PROVIDERS: Emergency Provider Nurse Practitioner Family; PCP Nurse Practitioner
DX: T63.301A Toxic effect of unspecified spider venom, accidental (unintentional), initial encounter (principal); T78.40XA Allergy, unspecified, initial encounter
CPT/HCPCS: 12345; 99281

== ENCOUNTER 2019-09-28 12:57 | Outpatient (CLI) | payer MEDICAID, SELFPAY | END 2019-09-28 12:58 | disposition home or self-care (01) | LOC: WOUND 12:57 | PROVIDERS: PCP Nurse Practitioner; Visit Provider Surgery | DX: Z09 Encounter for follow-up examination after completed treatment for conditions other than malignant neoplasm (principal) | CPT/HCPCS: 99212 ==

== ENCOUNTER → 2019-11-01 11:10 | Outpatient (BNVA) | payer MEDICAID, SELFPAY | PROVIDERS: PCP Nurse Practitioner; Visit Provider Nurse Practitioner Women's Health | DX: Z12.4 Encounter for screening for malignant neoplasm of cervix (principal); N93.9 Abnormal uterine and vaginal bleeding, unspecified | CPT/HCPCS: 88175 ==

== ENCOUNTER → 2019-11-29 14:09 | Outpatient (BNVA) | payer MEDICAID, SELFPAY | PROVIDERS: PCP Nurse Practitioner; Visit Provider Nurse Practitioner Women's Health | DX: N93.9 Abnormal uterine and vaginal bleeding, unspecified (principal) | CPT/HCPCS: 85025 ==

== ENCOUNTER → 2019-12-11 15:43 | Outpatient (BNVA) | payer MEDICAID, SELFPAY | PROVIDERS: PCP Nurse Practitioner; Visit Provider Nurse Practitioner Women's Health | DX: N93.9 Abnormal uterine and vaginal bleeding, unspecified (principal) | CPT/HCPCS: 85025; 88305 ==

== ENCOUNTER → 2020-02-21 12:13 | Outpatient (BNVA) | payer MEDICAID, SELFPAY | PROVIDERS: PCP Nurse Practitioner; Visit Provider Nurse Practitioner Women's Health | DX: N93.9 Abnormal uterine and vaginal bleeding, unspecified (principal) | CPT/HCPCS: 85027 ==

== ENCOUNTER → 2020-03-05 09:46 | Outpatient (BNVA) | payer MEDICAID, SELFPAY | PROVIDERS: PCP Nurse Practitioner; Referring Provider Nurse Practitioner; Visit Provider Specialist | DX: M25.561 Pain in right knee (principal); M25.562 Pain in left knee | CPT/HCPCS: 73560; 73565 ==

== ENCOUNTER 2020-05-30 14:04 | Outpatient (CLI) | payer BC, MEDICAID, SELFPAY ==
--- NOTE | 2020-05-30 14:09 | USCV_ITS ---
Josette Goldsmith Age: 39 Gender: F : 1980 Exam Date: 05/30/2020 14:50 Ordering Phys: Serafin Godoy M.D ([email or web address]) Technologist: Astrid Pereyra Exam Location: [facility] [place] Indication: CHEST PAIN BP: 120 / 80 HR: 72 Rhythm: Sinus Technical Quality: Very difficult MEASUREMENTS (Male / Female) Normal Values 2D ECHO LV Diastolic Diameter PLAX 3.6 cm 4.2 - 5.9 / 3.9 - 5.3 cm LV Systolic Diameter PLAX 3.0 cm LV Chamber Size 4.3 cm IVS Diastolic Thickness 1.5 cm 0.6 - 1.0 / 0.6 - 0.9 cm IVS Systolic Thickness 2.0 cm LVPW Diastolic Thickness 1.4 cm 0.6 - 1.0 / 0.6 - 0.9 cm LVPW Systolic Thickness 2.0 cm RV Chamber Size 3.6 cm LVOT Diameter 2.0 cm LV Ejection Fraction 2D Teich 26.8 % LA Diameter 3.5 cm LA Width 2.6 cm LA Height 4.4 cm RA Width 3.1 cm RA Height 4.1 cm Aorta at Sinotubular Diameter 2.9 cm M-MODE LV Diastolic Diameter MM 5.7 cm 4.2 - 5.9 / 3.9 - 5.3 cm LV Systolic Diameter MM 3.8 cm LV Ejection Fraction MM Teich 61.7 % IVS Diastolic Thickness MM 0.9 cm 0.6 - 1.0 / 0.6 - 0.9 cm IVS Systolic Thickness MM 1.7 cm LVPW Diastolic Thickness MM 1.7 cm 0.6 - 1.0 / 0.6 - 0.9 cm LVPW Systolic Thickness MM 2.1 cm RV Diastolic Diameter MM 0.9 cm Aortic Annulus Diameter 3.6 cm LA Ao Ratio MM 1.1 MV E Point Septal Separation 0.3 cm DOPPLER AV Peak Velocity 115.0 cm/s LVOT Peak Velocity 72.7 cm/s AV Area Cont Eq vti 2.0 cm squared AV Area Cont Eq pk 2.0 cm squared MV Area PHT 4.5 cm squared Mitral E to A Ratio 1.0 MV E' Velocity 35.5 cm/s Mitral E to MV E' Ratio 8.4 Mitral E to LV E' Lateral Ratio 7.3 Mitral E to LV E' Septal Ratio 10.1 TR Peak Velocity 169.3 cm/s TR Peak Gradient 11.5 mmHg TR Mean Velocity 129.3 cm/s TR Mean Gradient 7.3 mmHg TR Velocity Time Integral 43.1 cm TV Peak E Velocity 68.0 cm/s Right Atrial Pressure 3.0 mmHg Pulmonary Artery Systolic Pressu 14.5 mmHg PV Peak Velocity 57.0 cm/s RV Acceleration Time 0.2 s RV Ejection Time 0.3 s RV AcT/ET 0.5 FINDINGS Left Ventricle This is technically very limited study. Cardiac structures are not well-visualized. Grossly LV systolic function is however cannot assess regional wall motion abnormalities because of poor visualization. Right Ventricle Grossly normal Right Atrium Not well-visualized Left Atrium Not well-visualized Mitral Valve Grossly normal Aortic Valve Not well-visualized. No significant aortic stenosis is seen. Tricuspid Valve Not well visualized. RVSP can not be calculated because of limited visualization. Pulmonic Valve Not visualized Pericardium Normal pericardium without effusion. Aorta Normal ascending aorta dimension. CONCLUSIONS Poor visualization of cardiac structures secondary to limited ultrasonic windows. Grossly LV systolic function is mildly reduced. Cannot assess regional wall motion abnormalities because of poor visualization. Valvular structures are not well visualized however no gross major abnormality. No comparison studies are available. Serafin Godoy MD (Electronically Signed) Final Date: 08 June 2020 13:56 S
== END 2020-05-30 14:05 | disposition home or self-care (01) ==
PROVIDERS: PCP Nurse Practitioner; Visit Provider Internal Medicine
DX: R07.9 Chest pain, unspecified (principal)
CPT/HCPCS: 85025; 93306

== ENCOUNTER → 2020-07-24 13:21 | Outpatient (BNVA) | payer BC, MEDICAID, SELFPAY | PROVIDERS: PCP Nurse Practitioner; Visit Provider Internal Medicine | DX: R07.9 Chest pain, unspecified (principal); I50.9 Heart failure, unspecified | CPT/HCPCS: 36415; 80048; 85025; 85610; 87635 ==

== ENCOUNTER → 2020-08-07 16:06 | Outpatient (BNVA) | payer BC, MEDICAID, SELFPAY | PROVIDERS: PCP Nurse Practitioner; Visit Provider Nurse Practitioner | DX: Z01.812 Encounter for preprocedural laboratory examination (principal); Z20.822 Contact with and (suspected) exposure to COVID-19 | CPT/HCPCS: 87635 ==

== ENCOUNTER 2020-08-13 12:43 | Outpatient (CLI) | payer BC, MEDICAID, SELFPAY ==
--- NOTE | 2020-08-13 13:41 | PFTS_ITS ---
Date of Study:08/13/20 Date of Dictation: MECHANICS: Forced vital capacity (FVC) is normal. Forced expiratory volume in one second (FEV1) is reduced. FEV1/FVC is normal. FLOW VOLUME LOOP: Normal. LUNG VOLUMES: Total lung capacity (TLC) is reduced. Residual volume (RV) is reduced. DIFFUSING CAPACITY FOR CARBON MONOXIDE: Normal. INTERPRETATION: The postbronchodilator spirometry is consistent with mild restriction. There is no significant postbronchodilator response. Lung volumes are consistent with mild restriction. Gas exchange (DLCO) is normal. MTDD
== END 2020-08-13 12:44 | disposition home or self-care (01) ==
LOC: RT 12:46
PROVIDERS: PCP Nurse Practitioner; Visit Provider Nurse Practitioner
DX: R05 Cough (principal)
CPT/HCPCS: 94060; 94726; 94729; J7611

== ENCOUNTER 2020-08-19 08:03 | Observation (INO) | payer BC, MEDICAID, SELFPAY ==
--- NOTE | 2020-08-19 06:20 | XACV_ITS ---
Exam Room: [facility] Ht: 165 cm Wt: 160 kg BSA: 2.81 m2 Gender: Female : 1980 Any Known Allergies: Other Exam Priority: Routine Procedure(s): Procedure Description: Diagnostic procedure Procedure Description: Miscellaneous Procedure Description: ACT Procedure Description: Coronary Angiography Procedure Description: Left heart cath Procedure Description: LV gram Diagnostic Cath Status: Elective Diagnostic Findings * We initially obtained access in the right radial artery. RCA was engaged with a [place] catheter, however, patient had significant spasm while manipulating the catheter to engage left main artery. We switched access to right femoral artery. Left main artery was successfully engaged from the femoral artery access. * No significant disease noted in the Left Main, LAD, Circumflex, or RCA coronary arteries. * Coronary angiography shows right dominance. Conclusions 1. No significant disease noted in the Left Main, LAD, Circumflex, or RCA coronary arteries. 2. Mild left ventricular systolic dysfunction. Ejection fraction of 45%. Recommendations * Aggressive risk factor control. * Weight loss advised. * Outpatient cardiology follow up. Interventional RX Recommendation: medical therapy and/or counseling Diagnostic RX Recommendation: medical therapy and/or counseling Anticoagulation: Heparin Ventriculography Ejection Fraction: 45.0 % Pressures Phase:Rest AO : 155 / 122 ( 137 ) @ 7:22:00 AM 147 / 115 ( 132 ) @ 7:46:00 AM 150 / 84 ( 111 ) @ 7:51:00 AM 152 / 72 ( 110 ) @ 7:51:00 AM LV : 149 / -10 / 10 @ 7:50:00 AM 155 / -16 / 13 @ 7:51:00 AM 157 / -14 / 14 @ 7:51:00 AM Valves Phase:DefaultPhase AV : 6.0 @ 11:19:32 AM 6.0 @ 11:19:32 AM AV Mean Gradient: 10.0 @ 11:19:32 AM 10.0 @ 11:19:32 AM Clinical Evaluation EBL: 5mL-10mL Procedural Details Procedure Consent Obtained. Current Diagnosis : Chest Pain. Pre-Procedure Time Out. Identified patient by full name and date of as verbalized by the patient/guarantor. Does the consent match the physician's order: Yes. Accurate & Complete Informed Consent: Yes. Inpatient/Outpatient History & Physical on Chart: Yes. If H&P is completed, is and addenduem needed: No; If yes, is the addendum complete: N/A. Visualize and Verify Site with Patient/Guarantor: N/A. Relevant Radiology Images available: Yes. Pre-op teaching completed and patient verbalized understanding. The risks, benefits, and alternatives of sedation and/or procedure were discussed by physician. The patient agrees to continue. Procedure started. [facility] Clinical Fraility Score: 3: Managing Well. Territory Supervisor Indications: New Onset Angina. Chest Pain Symptom Assessment: Typical Angina Symptoms. Cardiovascular Instability: No. Correct patient, site and procedure confirmed by cath team. PERRLA. 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 Lungs clear x 5 lobes. IV Site on Arrival: 20 gauge in the left anticubital. IV Fluids: 0.9% NaCl at KVO. 0 mL infused prior to clinical lab specialist. Pre Procedural Pulses: bilateral dorsalis pedis was 1+. Pre Procedural Pulses: bilateral posterior tibial was 1+. Pre Procedural Pulses: right radial was 3+. Oxygen started at 2liters/min via nasal canula. right groin was prepped with chloroprep then draped in the usual sterile fashion. right radial was prepped with chloroprep then draped in the usual sterile fashion. Baseline sample Acquired. HR: 75 BPM. Patient's spouse, Andi, was going to leave the hospital for a bit and come back later. Dr. Godoy will update him via cell phone witht he findings of the procedure. Equipment: 6F - Radial. Cardiac Cath Pack. ACIST Manifold Kit Model BT 2000. Heparinized Saline (2 units/mL), 1000 mL bag. Physician arrived. Physician scrubbed in. Immediate Pre-Procedure Time Out. Correct Patient: Yes; Correct Procedure: Yes; Correct Site: Yes; Correct Patient Position: Yes; Correct Supplies: Yes; Dried Flammable Prep: Yes; Blood Products Available: N/A. Lidocaine 1% infiltrated to the right radial. Arterial access obtained. A 5 [place] TIG catheter in over the exchange wire. Multiple views taken of right coronary artery. Catheter redirected to the LCA, unable to cannulate. Catheter removed over the exchange wire. A 5 [place] JL3.5 catheter in over the exchange wire, unable to cannulate. Catheter removed over the exchange wire. A 5 [place] JL4 catheter in over the exchange wire, unable to cannulate. A 5 [place] JL3.5 catheter in over the exchange wire, unable to cannulate. Catheter removed over the exchange wire. Will move to femoral access. Lidocaine 1% infiltrated to the right groin. Arterial access obtained with micropuncture set, using ultrasound guidance. A 5 [place] JL4 catheter in over the exchange wire. Multiple views taken of left coronary artery. Catheter removed over the exchange wire. A 5 [place]abian Angled Pig catheter in over the exchange wire. EDP Sample taken: LV 149/-11,10; HR: 74 BPM; SpO2: 100%. LV gram performed in NETTLES @ 10 mL/second for a total of 30 mL. EDP Sample taken: LV 155/-17,13; HR: 69 BPM; SpO2: 100%. Pullback taken: LV 157/-15,14; AO 150/84(111); Mean: 10mmHg, Peak to Peak: 6mmHg, SEP: 20sec/min; HR: 69 BPM; SpO2: 100%. Catheter removed over the exchange wire. Patient's family updated by Colt Howell RN, K 9 HANDLER/ DEPUTY. A Right femoral angiogram was performed to determine safe placement of closure device. ACT drawn. Results 129 seconds. Therapeutic limits - pre-heparin administration 90-150 seconds and monitoring heparin during a vascular procedure >250 seconds. TR band placed. Hemostasis obtained. AngioSeal placed without complications. No signs or symptoms of hematoma noted. Sterile dressing applied per usual sterile fashion. A Manual Compression was successful obtaining hemostatsis at the Right Femoral artery insertion site. A TR Band was successful obtaining hemostatsis at the Right Radial artery insertion site. Post Procedure: Pulses reassessed and unchanged. PERRLA. 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 No VTE prophylaxis required. Contrast type used: Visipaque 320 mgI/mL, 500 mL bottle. Complications: None. Estimated blood loss: 5mL-10mL. Post-op diagnosis: Chest Pain. Sheath(s) removed and manual pressure held until hemostasis was achieved. Sterile 4x4 and Op-site applied to the puncture site. No oozing or hematoma noted. Post sheath removal instructions were given and the patient verbalized understanding. Medication's Wasted: Lidocaine 1% = 10 mL. Medication's Wasted: Nitro = 49.8 mg. Medication's Wasted: Heparin = 1000 units. Total IV fluids: 100 mL. Procedure completed. Patient transferred by bed to ICU. Access Site Site: Right Radial artery Sheath Size: 6 Fr Hemostasis Method: TR Band Hemostasis Success: Successful Site: Right Femoral artery Sheath Size: 6 Fr Hemostasis Method: Manual Compression Hemostasis Success: Successful Procedure Medications Start: 7:49 AM Stop: 7:49 AM Medication: Versed Amount: 1 mg Route: I.V. Start: 7:50 AM Stop: 7:50 AM Medication: Fentanyl Amount: 25 mcg Route: I.V. Start: 7:50 AM Stop: 7:50 AM Medication: Zofran (ondansetron) Amount: 4 mg Route: I.V. Start: 7:50 AM Stop: 7:50 AM Medication: Versed Amount: 1 mg Route: I.V. Start: 7:50 AM Stop: 7:50 AM Medication: Fentanyl Amount: 25 mcg Route: I.V. Start: 7:52 AM Stop: 7:52 AM Medication: Versed Amount: 1 mg Route: I.V. Start: 7:54 AM Stop: 7:54 AM Medication: Fentanyl Amount: 50 mcg Route: I.V. Start: 7:56 AM Stop: 7:56 AM Medication: Versed Amount: 1 mg Route: I.V. Start: 7:56 AM Stop: 7:56 AM Medication: Nitrogylcerin Amount: 200 mcg Route: I.A. Start: 8:00 AM Stop: 8:00 AM Medication: Heparin Amount: 5000 units Route: I.V. Start: 8:01 AM Stop: 8:01 AM Medication: Versed Amount: 1 mg Route: I.V. Start: 8:13 AM Stop: 8:13 AM Medication: Versed Amount: 1 mg Route: I.V. Start: 8:18 AM Stop: 8:18 AM Medication: Nitrogylcerin Amount: 200 mcg Route: I.A. Start: 8:22 AM Stop: 8:22 AM Medication: Fentanyl Amount: 50 mcg Route: I.V. Start: 8:24 AM Stop: 8:24 AM Medication: Fentanyl Amount: 50 mcg Route: I.V. Start: 8:33 AM Stop: 8:33 AM Medication: Versed Amount: 1 mg Route: I.V. Start: 8:38 AM Stop: 8:38 AM Medication: Versed Amount: 1 mg Route: I.V. Start: 8:59 AM Stop: 8:59 AM Medication: Fentanyl Amount: 50 mcg Route: I.V. Start: 9:01 AM Stop: 9:01 AM Medication: Fentanyl Amount: 25 mcg Route: I.V. I, the attending physician, have reviewed and verified all procedure medications. Yes, all medications given per verbal order History/Risk Factors Hypertension: No Dyslipidemia: No Peripheral Arterial Disease (PAD): No Myocardial Infarction (MS): No Obesity: No Renal Disease: No Tobacco Use: Never Prior Interventions PCI: No CABG: No Valve Surgery: No Report Signatures Finalized by Serafin Godoy MD on 09/01/2020 05:24 PM
[2020-08-19 06:21] VITALS: BP 163/103; PULSE 84; RESP 20; TEMP 36.7; O2SAT 96; BMI 58.6
[2020-08-19] MEDS: diphenhydrAMINE 50 mg Capsule PO (06:39)
--- NOTE | 2020-08-19 07:38 | W.PM.OPSFHP ---
Same Day Surgery H&P Indication for Procedure/HPI DATE OF PROCEDURE: August 19, 2020 CHIEF COMPLAINT/INDICATIONFOR SURGICAL PROCEDURE: Chest pain/ LV dysfunction PREOP DIAGNOSIS: Chest pain/ LV dysfunction PLANNED PROCEDRUE: Operation Date: 08/19/20 07:00 Proposed Procedures p Cardiac Catheterization left(Left) - Serafin Godoy M.D 39-year-old woman with no significant cardiac history, with obesity with a BMI of 58 has been referred for recent onset chest pain. According to patient she has been noticing substernal chest discomfort over the last 1-2 months. She had a Covid infection in January 2020. At times it is exertional but she was also noted rest pain. It has radiated to left arm. ECHO showed mildly reduced LV function.Plan for left heart cath today ROS CONSTITUTIONAL: No fever chills weight loss or gain or night sweats. [] HEENT: Normocephalic, atraumatic.[] RESPIRATORY: No cough, sputum, hemoptysis or wheezing.[] CARDIOVASCULAR: No shortness of breath, chest pain, PND, orthopnea, lower extremity edema, presyncope or syncope. [] GI: no nausea vomiting diarrhea. 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 [] MUSCULOSKELETAL: No knee or joint pain or rashes. [] Medications/Allergies* Home Medications Medication Instructions Recorded Confirmed Type albuterol sulfate 90 mcg/actuation 2 puff INHALATION Q6H PRN 03/24/20 08/19/20 History aerosol inhaler Allergies/Adverse Reactions Allergy/AdvReac Type Severity Reaction Status Date / Time sulfamethoxazole Allergy ALGY-Rash Verified 06/30/20 15:46 [From Bactrim] trimethoprim [From Bactrim] Allergy ALGY-Rash Verified 06/30/20 15:46 Current Medications: Generic Name Dose Route Start Last Admin Trade Name Freq PRN Reason Stop Dose Admin Sodium Chloride 1,000 mls @ 50 mls/hr 08/19/20 06:20 08/19/20 06:39 Sodium Chloride 0.9% IV 08/20/20 02:19 Not Given .Q20H ONE Pertinent History/Comorbid Conditions* Medical History (Updated 05/10/20 @ 20:43 by Serafin Godoy M.D) Anxiety Depression No pertinent past medical history neg hx: htn,dm,thyroid,dvt/pe Surgical History (Updated 11/01/19 @ 11:02 by Janna Vyas APN, CARLIE) H/O foot surgery (~1991) left-- fracture in growth plate Previous section (~2010) S/P cholecystectomy (~01/2019) S/P tonsillectomy Family History (Updated 12/11/19 @ 15:24 by Janna Vyas APN, CARLIE) Diabetes Grandmother Grandfather Father Brother Family/Other Maternal aunt Heart disease Grandmother Maternal grandmother Grandfather Paternal grandfather Maternal grandfather Mother Hyperlipidemia Grandmother Grandfather Breast cancer Family/Other Paternal Cousin--dx'd in her early 30s Family history of thyroid problem Mother Hypertension Grandmother Grandfather Mother Uterine cancer Grandmother, Onset Age: 50 MGM Stroke Grandmother Paternal grandmother Grandfather Paternal grandfather Denies family history of Colon cancer Ovarian cancer Social History Additional social history: - Tobacco use: Denies Alcohol use: Denies Drug use: Denies Pertinent Exam Findings alert, oriented x 3, clear to auscultation bilaterally and regular rate & rhythm GENERAL: Patient is alert, awake and oriented x3. [] NECK: No jugular vein distension. [] HEENT: No cyanosis. No icterus. No pallor. [] HEART: Regular S1 and S2. No murmur, rub or gallop. [] LUNGS: Clear to auscultate bilaterally. [] ABDOMEN: Soft, nontender and nondistended. Positive bowel sounds. No guarding, rebound or tenderness. [] CENTRAL NERVOUS SYSTEM: Grossly nonfocal. [] EXTREMITIES: Lower extremities with no edema bilaterally. Pulses palpable in the lower extremities, both dorsalis pedis and posterior tibial. [] Conscious Sedation Assessment PATIENT ASSESSED PRIOR TO SEDATION, WITH NO CHANGE NOTED: Yes AIRWAY EVAL/ANESTHESIA PLAN: normal airway, see other exam findings, ASA III, Monitored Anesthesia, Local Anesthesia, Risks, benefits & alternatives of sedation and/or procedure discussed and Patient agrees to continue as planned Recommendations Surgery/Procedure today (Coronary angiogram/left heart cath/possible percutaneous coronary intervention) Coding Level of Care Code Acute Weed Eradicator for Inga Estevez
--- NOTE | 2020-08-19 10:15 | PC.NURSE ---
Patient was transferred to ICU at 0930 via bed. Dressing was in place on right groin with firmness noted around site ad Dr. richardson. TR band in place on right wrist. Doppler was used and radial and dorsalis pedis pulses were present. Pressure was held on right groin site for 10 minuets. Patient complained of nausea and pain at groin site.
[2020-08-19] MEDS: ondansetron 2 mg/ML SDV 2 mL 4 MG IVP (10:34)
[2020-08-19 10:47] VITALS: BP 120/76; PULSE 67; RESP 18
--- NOTE | 2020-08-19 11:58 | PC.NURSE ---
TR band removed at 1155 and dressing was applied to a non bleeding site. No hematoma was noted.
[2020-08-19] MEDS: acetaminophen 325 mg Tablet 650 MG PO (12:21)
[2020-08-19 14:03] VITALS: BP 131/84; PULSE 72; RESP 18; TEMP 36.5; O2SAT 99
--- NOTE | 2020-08-19 14:16 | PC.NURSE ---
Patient sat up on edge of bed at 1435 and was able to get dressed with at bedside.
--- NOTE | 2020-08-19 14:51 | PC.NURSE ---
Patient was taken to personal vehicle at 1445 with discharge papers in hands. Radial site dressing was dry and intact with no hematoma noted. Femoral site has slight hematoma present but slightly smaller than when admitted to ICU. Dressing dry and intact.
== END 2020-08-19 14:45 | disposition home or self-care (01) ==
LOC: ICU 08:04
PROVIDERS: Admitting Provider Internal Medicine; PCP Nurse Practitioner; Visit Provider Internal Medicine
DX: R07.9 Chest pain, unspecified (principal); E66.9 Obesity, unspecified; Z68.43 Body mass index [BMI] 50.0-59.9, adult; Z86.16 Personal history of COVID-19; F41.9 Anxiety disorder, unspecified; F32.9 Major depressive disorder, single episode, unspecified
CPT/HCPCS: 36415; 85347; 93452; C1769; C1887; C1894; G0378; J1644; J2250; J2405; J3010; J3490; J7030; Q0163; Q9967

== ENCOUNTER 2020-08-22 11:08 | Outpatient (CLI) | payer BC, MEDICAID, SELFPAY ==
--- NOTE | 2020-08-22 11:13 | USCV_ITS ---
Josette Goldsmith Age: 39 Gender: F : 1980 Exam Date: 08/22/2020 11:24 Ordering Phys: Serafin Godoy M.D ([email or web address]) Technologist: Andi Wright Exam Location: [facility] [place] Indication: post cath wrist pain Risk Factors: Previous Vascular Surgery: Right BP: / Left BP: / RIGHT LEFT PSV PSV (cm/s) (cm/s) Waveform Waveform 91.4 Subclavian Proximal 82.0 Axillary 0.0 Radial Proximal 0.0 Radial Mid 0.0 Radial at Wrist 67.6 Ulnar at Wrist FINDINGS No flow found in right radial artery, Post cath Triphasic Doppler waveforms in the right subclavian, axillary, brachial and ulnar artery No Doppler flow signals are noted in the right radial artery CONCLUSIONS 1. Features of occlusion of the right radial artery. 2. Patent right ulnar, brachial, axillary and subclavian artery with normal flow pattern. Dr. Godoy was informed about this finding Dr Pamela Ayon MD [facility] (Electronically Signed) Final Date: 25 Aug 2020 10:42 S
== END 2020-08-22 11:09 | disposition home or self-care (01) ==
LOC: RAD 11:11
PROVIDERS: PCP Nurse Practitioner; Visit Provider Internal Medicine
DX: M79.601 Pain in right arm (principal)
CPT/HCPCS: 93931

== ENCOUNTER 2020-08-22 23:32 | Emergency (ER) | payer BC, MEDICAID, SELFPAY ==
[2020-08-22 23:35] VITALS: BP 163/101; PULSE 77; RESP 18; TEMP 36.6; O2SAT 99; BMI 58.7
[2020-08-23 00:35] VITALS: PULSE 74
--- NOTE | 2020-08-23 00:35 | PC.NURSE ---
patient states she had an angiogram through her right arm on tuesday and has had pain in her arm since. patient states she had an ultrasound done on her arm yesterday and they found a blood clot. patient states the pain keeps getting worse with no relief at all .
[2020-08-23 00:41] VITALS: BP 160/98; PULSE 74; RESP 16; O2SAT 99
[2020-08-23 01:46] VITALS: RESP 17; O2SAT 99
[2020-08-23] MEDS: HYDROmorphone 1 mg/mL INJ 1 mL 1.5 MG IM (01:46)
[2020-08-23] MEDS: ondansetron 4 MG Tablet PO (01:47)
[2020-08-23 01:49] VITALS: BP 150/110; PULSE 84; RESP 18; O2SAT 100
[2020-08-23] MEDS: promethazine 25 mg/mL SDV 1 mL IM (02:38)
[2020-08-23 02:43] VITALS: BP 139/67; RESP 19
--- NOTE | 2020-08-23 03:19 | W.ED.EXTPRO ---
HPI - Extremity Problem General: Chief complaint: Extremity Problem,Nontraumatic Stated complaint: LEFT ARM PAIN, BLOOD CLOT FOUND TODAY BY US Time Seen by Provider: 08/23/20 00:44 History of Present Illness: HPI Narrative: 39-year-old female who had a procedure performed her access on the right forearm was obtained following this she had pain. She saw her bundler seasonal greenery on Tuesday, and ultrasound was ordered. It showed a almost in the vein of the forearm. She was started on Eliquis. She has been having significant pain. She was given a prescription for tramadol but notes that it is not helping he is also noted that her blood pressure is quite high because of the pain. MD Complaint: extremity pain and extremity swelling Onset (ago): week(s) Pain Consistency: constant Location: right and upper extremity Quality: burning and stabbing Radiation: distal Relieving factors: nothing Exacerbating factors: nothing Associated symptoms: Deny chest pain or fever(s) Review of Systems Const: Denies: fever(s) or chills ENMT: Denies: throat pain Card: Denies: chest pain, palpitations or irregular heart rhythm Resp: Denies: dyspnea GI: Denies: abdominal pain, nausea or vomiting : Denies: flank pain PFSH ED PFSH: Medical History (Updated 08/23/20 @ 02:58 by Rodger Hernandez DO) Anxiety Depression No pertinent past medical history neg hx: htn,dm,thyroid,dvt/pe Surgical History H/O foot surgery (~1991) left-- fracture in growth plate Previous section (~2010) S/P cholecystectomy (~01/2019) S/P tonsillectomy Family History Grandmother Diabetes Hypertension Hyperlipidemia Stroke Paternal grandmother Heart disease Maternal grandmother Uterine cancer, Onset Age: 50 MGM Grandfather Diabetes Hypertension Hyperlipidemia Stroke Paternal grandfather Heart disease Paternal grandfather Maternal grandfather Father Diabetes Brother Diabetes Family/Other Diabetes Maternal aunt Breast cancer Paternal Cousin--dx'd in her early 30s Mother Hypertension Heart disease Family history of thyroid problem Denies family history of Colon cancer Ovarian cancer Social History Additional social history: - Tobacco use: Denies Alcohol use: Denies Drug use: Denies Physical Exam Const: COMMON NORMALS: patient oriented x3 GENERAL APPEARANCE: cooperative and well kempt NUTRITIONAL APPEARANCE: obese Chest: COMMONS NORMALS: normal inspection of the chest Resp: COMMON NORMALS: normal respiratory effort, No use of accessory muscles and clear to auscultation bilaterally EFFORT & INSPECTION: Yes able to speak in complete sentences and No respiratory distress AUSCULTATION: clear to auscultation bilaterally Cardio: COMMON NORMALS: regular rate and regular rhythm RATE: regular rate RHYTHM: regular rhythm GI: COMMON NORMALS: Normal to inspection, nondistended, normoactive bowel sounds present Extremity: NARRATIVE EXTREMITY EXAM: Examination of the right upper extremity reveals some swelling to the mid forearm. She can move her fingers without excruciating pain. There is tenderness diffusely in the forearm. Minimal redness and warmth. Neuro: COMMON NORMALS: patient oriented x3 and no sensory deficits noted Psych: APPEARANCE: Yes well kempt Course ED course: Patient here for pain control. She has already started her anticoagulation. She was given an injection 1.5 mg of Dilaudid IM. This was complicated by nausea and vomiting which seemed to resolve after promethazine. She will be given Percocet for home as well as Zofran for the nausea. Vital Signs: Vital signs: Vital Signs Temperature 97.9 F 08/22/20 23:35 Pulse Rate 84 08/23/20 01:49 Respiratory Rate 19 H 08/23/20 02:43 Blood Pressure 139/67 08/23/20 02:43 Pulse Oximetry 100 08/23/20 01:49 Discharge Plan Discharge Patient Disposition: Home Clinical Impression: Deep venous thrombosis of upper extremity Qualifiers: Affected thrombotic vein of extremity: unspecified vein of extremity Chronicity: acute Laterality: right Qualified Code(s): I82.621 - Acute embolism and thrombosis of deep veins of right upper extremity Condition: Stable Prescriptions: New Zofran 4 mg tablet 4 mg PO Q6H PRN (Reason: nausea and vomiting) Qty: 10 RF: 0 Percocet 7.5-325 mg tablet 1 tab PO Q6H PRN (Reason: pain) Qty: 10 RF: 0 No Action albuterol sulfate [Ventolin HFA] 90 mcg/actuation HFA aerosol inhaler 2 puff inhalation Q6H PRN (Reason: Shortness Of Breath) RF: 0 tramadol 50 mg tablet 50 mg PO BID PRN (Reason: pain) Qty: 20 RF: 0 Eliquis 5 mg tablet 5 mg PO BID Qty: 60 RF: 0 norethindrone acetate 5 mg tablet 5 mg PO DAILY Qty: 84 RF: 3 Discharge Orders: Discharge ED (Routine); Ordered 08/23/20 Ordered By: Rodger Hernandez Referrals: Colette Moran FNP [Primary Care Provider] - 4-7 days Patient Instructions: Deep Venous Thrombosis (ED), Opioid Safety Activity Restrictions/Additional Instructions: Return for worsening pain, redness, swelling despite treatment. Return for development of chest discomfort, shortness of breath, or any other concerning symptoms. Medication as directed. Coding Level of Care Code ED Dial Brusher for Inga Estevez
[2020-08-23 03:31] VITALS: BP 153/98; PULSE 64; RESP 18; O2SAT 100
== END 2020-08-23 03:32 | disposition home or self-care (01) ==
PROVIDERS: Emergency Provider Emergency Medicine; PCP Nurse Practitioner
DX: I82.621 Acute embolism and thrombosis of deep veins of right upper extremity (principal); Z79.01 Long term (current) use of anticoagulants
CPT/HCPCS: 96372; 99283; J1170; J2550; Q0162

== ENCOUNTER 2020-10-21 10:36 | Outpatient (CLI) | payer BC, MEDICAID, SELFPAY ==
[2020-10-21 11:05] LABS: Basophils % 0.3 %; Eosinophils # 0.1 10^3/uL (0.0-0.8); Eosinophils % 1.8 %; Hematocrit 38.4 % (37.0-47.0); Hemoglobin 11.3 g/dL (11.5-15.3); Lymphocytes # 1.4 10^3/uL (0.8-4.8); Mean Corpuscular HGB Conc 29.4 g/dL (30.0-36.0); Mean Corpuscular Hemoglobin 23.3 pg (28.0-34.0); Mean Platelet Volume 11.3 fL (7.4-10.4); Monocytes # 0.5 10^3/uL (0.2-0.9); Monocytes % 6.2 %; Neutrophils # 5.35 10^3/uL (1.8-7.7); Neutrophils % 72.4 %; Nucleated Red Blood Cells % 0 %; Platelet Count 388 10^3/cmm (130-400); Red Blood Count 4.86 10^6/uL (4.1-5.3); Red Cell Distribution Width 16.4 % (12.1-15.1); White Blood Count 7.4 10^3/uL (4.0-10.0)
[2020-10-22 18:32] LABS: Alternaria Alternata (M6) Ige <0.10 kU/L; Alternaria Class 0; Bermuda Class 0; Bermuda Grass (G2) Ige <0.10 kU/L; Cat Dander (E1) Ige <0.10 kU/L; Cat Dander Class 0; Common Ragweed (Short) (W1) Ig <0.10 kU/L; D. Farinae Class 0; Dermatophagoides Class 0; Dermatophagoides Farinae (D2) <0.10 kU/L; Dermatophagoides Pteronyssinus <0.10 kU/L; Dog Dander (E5) Ige <0.10 kU/L; Dog Dander Class 0; Elm (T8) Ige <0.10 kU/L; Elm Class 0; English Plantain (W9) Ige <0.10 kU/L; English Plantain Class 0; House Dust (Greer) (H1) Ige <0.10 kU/L; House Dust (Hollister- Stier) <0.10 kU/L; House Dust Class 0; Immunoglobulin E 30 kU/L (<OR=114); Johnson Grass (G10) Ige <0.10 kU/L; Johnson Grass Cl 0; June Grass Class 0; June Grass(Kentucky Blue) (G8) <0.10 kU/L; Lamb'S Quarters (Goose Foot) <0.10 kU/L; Lamb'S Quarters Class 0; Maple (Box Elder) (T1) Ige <0.10 kU/L; Maple Class 0; Meadow Fescue (G4) Ige <0.10 kU/L; Meadow Fescue Class 0; Mucor Racemosus Class 0; Oak (T7) Ige <0.10 kU/L; Oak Class 0; Orchard Grass (Cocksfoot) (G3) <0.10 kU/L; Penicillium Class 0; Penicillium Notatum (M1) Ige <0.10 kU/L; Perennial Rye Grass (G5) Ige <0.10 kU/L; Perennial Rye Grass Class 0; Ragweeed Class 0; Rough Marsh Elder (W16) Ige <0.10 kU/L; Rough Marsh Elder Class 0; Sweet Vernal Class 0; Sweet Vernal Grass (G1) Ige <0.10 kU/L; Timothy Grass (G6) Ige <0.10 kU/L; Timothy Grass Class 0
== END 2020-10-21 10:37 | disposition home or self-care (01) ==
LOC: LAB 10:40
PROVIDERS: PCP Nurse Practitioner; Visit Provider Internal Medicine Pulmonary Disease
DX: J30.89 Other allergic rhinitis (principal)
CPT/HCPCS: 36415; 82785; 85025; 86003

== ENCOUNTER 2020-10-29 20:00 | Outpatient (CLI) | payer BC, MEDICAID, SELFPAY | END 2020-10-29 20:01 | disposition home or self-care (01) | LOC: SLEEP 10-30 09:29 | PROVIDERS: PCP Nurse Practitioner; Visit Provider Internal Medicine Pulmonary Disease | DX: G47.34 Idiopathic sleep related nonobstructive alveolar hypoventilation (principal); R06.83 Snoring; R53.83 Other fatigue; G47.33 Obstructive sleep apnea (adult) (pediatric) | CPT/HCPCS: 95810 ==

== ENCOUNTER 2020-11-03 08:30 | Outpatient (CLI) | payer BC, MEDICAID, SELFPAY ==
--- NOTE | 2020-11-03 08:45 | CT_ITS ---
WS: [id number] Josette Goldsmith CT CHEST CT-HIGH RESOLUTION, NONCONTRAST. HISTORY: Interstitial lung disease. Technique: High-resolution chest CT is performed in inspiration, expiration, supine and prone ray arana. All CT scans at [facility] use at least one of these dose optimization techniques: automa trell exposure control; mA and/or kV adjustment per patient size (includes targeted exams where dose is matched to clinical indication); or iterative reconstruction. DLP: 1427.16 mGy-cm. COMPARISON: Chest radiograph 03/13/2020 Findings: Quality of this examination is somewhat limited by body habitus and breathing artifact. The re are a few scattered subcentimeter areas of interstitial thickening and reticulation. This is more diffuse and not in the peripheral distribution. Slightly greater in the upper lung mendoza and RIGHT m iddle lobe then the lower lung mendoza. No honeycombing or bronchiectasis. No traction bronchiectasis or pneumonia. No mosaic attenuation of groundglass attenuation. No air trapping appreciated. Heart size is normal. No pericardial or pleural effusions. No adenopathy. No adrenal mass. Prior cholecystectomy. CT/CT chest wo con [id number] Impression: 1. No evidence for pulmonary fibrosis. No honeycombing or traction bronchiecta sis. 2. There are a few very mild areas of scattered interstitial thickening bilate rally. Not in a peripheral distribution necessarily. Suggestive more of pneumon itis or hypersensitivity type pneumonia.
== END 2020-11-03 08:31 | disposition home or self-care (01) ==
PROVIDERS: PCP Nurse Practitioner; Visit Provider Internal Medicine Pulmonary Disease
DX: J98.4 Other disorders of lung (principal)
CPT/HCPCS: 71250

== ENCOUNTER → 2020-12-30 09:01 | Outpatient (BNVA) | payer BC, MEDICAID, SELFPAY | PROVIDERS: PCP Nurse Practitioner; Visit Provider Internal Medicine Rheumatology | DX: M05.9 Rheumatoid arthritis with rheumatoid factor, unspecified (principal); Z79.899 Other long term (current) drug therapy; M17.12 Unilateral primary osteoarthritis, left knee; Z11.59 Encounter for screening for other viral diseases; Z11.1 Encounter for screening for respiratory tuberculosis; Z71.89 Other specified counseling; Z87.891 Personal history of nicotine dependence | CPT/HCPCS: 99204 ==

== ENCOUNTER 2020-12-31 13:38 | Outpatient (CLI) | payer BC, MEDICAID, SELFPAY ==
--- NOTE | 2020-12-31 13:58 | XR_ITS ---
WS: [id number] Left hand, 3 views, 12/31/2020 Clinical Data: Z79.899 - Other pen[facility] (current) drug therapy Comparison: Left hand, 01/28/2011. Findings: No fractures or dislocations are seen. The soft tissues are unremarkable. The joint spaces are normal No periarticular demineralization or calcifications are seen. XR/XR hand LT min 3V* [id number] Impression: Negative left hand.
--- NOTE | 2020-12-31 13:58 | XR_ITS ---
WS: [id number] Right hand, 3 views, 12/31/2020 Clinical Data: Z79.899 - Other terminal superintendent (current) drug therapy Comparison: Right hand, 01/28/2011. Findings: No fractures or dislocations are seen. The soft tissues are unremarkable. The joint space s are normal No periarticular demineralization or calcifications are seen. XR/XR hand RT min 3V* [id number] Impression: Negative right hand.
--- NOTE | 2020-12-31 13:58 | XR_ITS ---
WS: [id number] Right foot, 3 views, 12/31/2020 Clinical Data: Z79.899 - Other terminal operator (current) drug therapy Comparison: Right foot, 08/06/2014. Findings: No fractures or dislocations are seen. No bone destruction or erosion is noted. The joint spaces and soft tissues are normal. There is an Achilles spur and a plantar spur. XR/XR foot RT min 3V* [id number] Impression: Negative right foot.
--- NOTE | 2020-12-31 13:58 | XR_ITS ---
WS: [id number] Left foot, 3 views, 12/31/2020 Clinical Data: Z79.899 - Other detention (current) drug therapy Comparison: None. Findings: No fractures or dislocations are seen. No bone destruction or erosion is noted. The joint spaces and soft tissues are normal. No periarticular demineralization or calcifications are seen. XR/XR foot LT min 3V* [id number] Impression: Negative left foot.
[2020-12-31 15:24] LABS: Basophils % 0.4 %; Eosinophils # 0.1 10^3/uL (0.0-0.8); Hematocrit 38.6 % (37.0-47.0); Hemoglobin 11.7 g/dL (11.5-15.3); Lymphocytes # 1.5 10^3/uL (0.8-4.8); Lymphocytes % 19.1 %; Mean Corpuscular HGB Conc 30.3 g/dL (30.0-36.0); Mean Corpuscular Hemoglobin 24.2 pg (28.0-34.0); Mean Corpuscular Volume 79.8 fl (81-99); Mean Platelet Volume 11.6 fL (7.4-10.4); Monocytes # 0.5 10^3/uL (0.2-0.9); Monocytes % 6.2 %; Neutrophils # 5.58 10^3/uL (1.8-7.7); Nucleated Red Blood Cells % 0 %; Platelet Count 328 10^3/cmm (130-400); Red Blood Count 4.84 10^6/uL (4.1-5.3); White Blood Count 7.6 10^3/uL (4.0-10.0)
[2020-12-31 15:29] LABS: Alanine Aminotransferase 12 U/L (0-33); Albumin Level 4.1 g/dL (3.5-5.2); Alkaline Phosphatase 71 IU/L (35-105); Aspartate Amino Transferase 10 U/L (0-32); Globulin 3.2 g/dL (1.3-4.6); Glomerular Filtration Rate 92.2 mL/min (90-130); Total Bilirubin 0.9 mg/dL (0.15-1.2); Total Protein 7.3 g/dL (6.6-8.7)
[2020-12-31 15:43] LABS: 25 Hydroxy Vitamin D 18 ng/mL (30-100)
[2020-12-31 16:13] LABS: Erythrocyte Sedimentation Rate 32 mm/hr (0-15)
[2020-12-31 18:24] LABS: Hepatitis B Core AB, Total Non-Reactive (Nonreactive); Hepatitis B Surface Antigen Non-Reactive (Nonreactive); Hepatitis C Virus Antibody Non-Reactive (Nonreactive)
[2021-01-01 15:08] LABS: Cyclic Citrullinated Peptide <16 UNITS
[2021-01-02 14:24] LABS: Quantiferon Nil 0.01 IU/mL; Quantiferon TB Gold NEGATIVE (NEGATIVE)
== END 2020-12-31 13:39 | disposition home or self-care (01) ==
LOC: RAD 13:50
PROVIDERS: PCP Nurse Practitioner; Visit Provider Internal Medicine Rheumatology
DX: M19.90 Unspecified osteoarthritis, unspecified site (principal); Z79.899 Other long term (current) drug therapy; Z11.59 Encounter for screening for other viral diseases; Z11.1 Encounter for screening for respiratory tuberculosis
CPT/HCPCS: 36415; 73130; 73630; 80076; 82306; 82565; 85025; 85651; 86140; 86431; 86480; 86704; 86803; 87340

== ENCOUNTER 2021-03-09 13:22 | Outpatient (CLI) | payer BC, MEDICAID, SELFPAY ==
--- NOTE | 2021-03-09 13:26 | USCV_ITS ---
Agus Josette Age: 40 Gender: F : 1980 Exam Date: 03/09/2021 13:46 Ordering Phys: Serafin Godoy M.D ([email or web address]) Technologist: Astrid Pereyra [place] [facility] [place]: KNOWN RT RAD ART OCCLUSSION Risk Factors: Unknown Previous Vascular Surgery: CARDIAC CATH DONE RT RAD ART Right BP: / Left BP: / RIGHT LEFT PSV PSV (cm/s) (cm/s) Waveform Waveform Triphasic 53.2 Subclavian Proximal Triphasic 99.4 Subclavian Distal Triphasic 59.7 Axillary Triphasic 56.6 Brachial Proximal Triphasic 72.7 Brachial Mid Triphasic 86.8 Brachial at AC Monophasic 70.9 Radial Proximal 0.0 Radial Mid 0.0 Radial at Wrist Triphasic 83.3 Ulnar Proximal Triphasic 85.9 Ulnar Mid Triphasic 70.0 Ulnar at Wrist FINDINGS Rt. Rad Art still occluded. There is flow prox area today. No Doppler flow signals are obtained in the mid and distal radial artery on the right side. Monophasic Doppler waveform in the proximal radial artery. 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 Compared to the previous study from 08/22/2020, there is sluggish flow in the proximal segment of the right radial artery with persistent occlusion of the mid and distal segments Dr Pamela Ayon MD [facility] (Electronically Signed) Final Date: 10 March 2021 08:06 S
== END 2021-03-09 13:23 | disposition home or self-care (01) ==
LOC: RAD 13:23
PROVIDERS: PCP Nurse Practitioner; Visit Provider Internal Medicine
DX: I70.208 Unspecified atherosclerosis of native arteries of extremities, other extremity (principal)
CPT/HCPCS: 93931

== ENCOUNTER 2021-05-24 13:05 | Emergency (ER) | payer BC, MEDICAID, SELFPAY ==
[2021-05-24 13:14] VITALS: BP 164/104; PULSE 97; RESP 20; TEMP 37.2; O2SAT 97; BMI 58.6
--- NOTE | 2021-05-24 13:31 | W.ED.NAVMDI ---
Documented by User: ANTONY Chan 05/24/21 14:16 HPI - Nausea/Vomiting/Diarrhea General: Chief complaint: Nausea/Vomiting/Diarrhea Stated complaint: unable to keep fluids down, was tested for COVID Time Seen by Provider: 05/24/21 13:21 History of Present Illness: Patient stated she started with nausea and vomiting on . She given prescription for promethazine which has helped with that but now she is having diarrhea. And she said she just aches from vomiting. Maybe has some chills does not have fever presently was tested for Covid but result is not back. Patient denies any other symptoms. MD elicited complaint: nausea, vomiting and diarrhea Onset (ago): day(s) Associated nausea: Yes Associated symtoms: Reports nausea; Denies chest pain or headache(s) Review of Systems Const: Denies: fever(s), chills or body aches Eyes: Denies: eye discomfort ENMT: Denies: throat pain Card: Reports: dyspnea on exertion; Denies: chest pain Resp: Denies: dyspnea GI: Reports: nausea, vomiting and diarrhea; Denies: abdominal pain Skin/Breast: Denies: rash Neuro: Denies: headache(s) Psych: Denies: depression or suicidal ideation PFSH ED PFSH: Medical History Anxiety Depression High risk medication use Immunization counseling No pertinent past medical history neg hx: htn,dm,thyroid,dvt/pe Rheumatoid arthritis with rheumatoid factor Surgical History H/O foot surgery (~1991) left-- fracture in growth plate Previous section (~2010) S/P cholecystectomy (~01/2019) S/P tonsillectomy Family History Grandmother Diabetes Hypertension Hyperlipidemia Stroke Paternal grandmother Heart disease Maternal grandmother Uterine cancer, Onset Age: 50 MGM Grandfather Diabetes Hypertension Hyperlipidemia Stroke Paternal grandfather Heart disease Paternal grandfather Maternal grandfather Father Diabetes Brother Diabetes Family/Other Diabetes Maternal aunt Breast cancer Paternal Cousin--dx'd in her early 30s Mother Hypertension Heart disease Family history of thyroid problem Other CAD (coronary artery disease) Rheumatoid arthritis Denies family history of Colon cancer Ovarian cancer Lupus Chronic kidney disease (CKD) Lung disease Cancer Social History Quit status (tobacco): has quit using tobacco Year quit tobacco: 2011 [id number] Former quit date comment: off and on Second hand smoke exposure: Yes Smoking risk assessment/counseling performed?: Yes Alcohol intake: never Lives independently: Yes Household members: significant other Marital status: Current occupational status: unemployed Pets and animals: Yes History of recent travel: No Current gender identity: Female Additional social history: - Tobacco use: Denies Alcohol use: Denies Drug use: Denies Physical Exam Const: COMMON NORMALS: no acute distress, patient oriented x3 and alert HENMT: COMMON NORMALS: normocephalic HEAD & SCALP: normocephalic Eye: COMMON NORMALS: EOMs intact bilaterally Neck/C-Spine: COMMON NORMALS: no JVD Resp: COMMON NORMALS: normal respiratory effort and No use of accessory muscles Cardio: COMMON NORMALS: no JVD GI: INSPECTION: Yes normal to inspection Extremity: COMMON NORMALS: normal to inspection and full ROM Neuro: COMMON NORMALS: patient oriented x3 SENSORIUM/ORIENTATION: Yes alert Psych: COMMON NORMALS: mental status grossly normal Skin: COMMON NORMALS: no rashes or lesions noted GENERAL SKIN EXAM: no rashes or lesions noted Course Vital Signs: Vital signs: Vital Signs Temperature 99.4 F 05/24/21 15:01 Pulse Rate 91 05/24/21 15:01 Respiratory Rate 18 05/24/21 15:01 Blood Pressure 140/88 05/24/21 15:01 Pulse Oximetry 98 05/24/21 15:01 MDM - Nausea/Vomiting/Diarrhea Medical Decision Making Patient appears to have gastroenteritis. Mild low sodium. Potassium is normal. White count is normal. Patient was given a liter of fluids and felt much better. Medication was changed. Encouraged follow-up primary care provider. Lab Data : 05/24/21 13:20 05/24/21 13:20 Laboratory Results WBC 4.7 10^3/uL (4.0-10.0) 05/24/21 13:20 RBC 4.96 10^6/uL (4.1-5.3) 05/24/21 13:20 Hgb 12.0 g/dL (11.5-15.3) 05/24/21 13:20 Hct 39.6 % (37.0-47.0) 05/24/21 13:20 MCV 79.8 fl (81-99) L 05/24/21 13:20 MCH 24.2 pg (28.0-34.0) L 05/24/21 13:20 MCHC 30.3 g/dL (30.0-36.0) 05/24/21 13:20 RDW 16.5 % (12.1-15.1) H 05/24/21 13:20 Plt Count 233 10^3/cmm (130-400) 05/24/21 13:20 MPV 11.5 fL (7.4-10.4) H 05/24/21 13:20 Neut % (Auto) 75.0 % 05/24/21 13:20 Lymph % (Auto) 10.1 % 05/24/21 13:20 [place] % (Auto) 13.9 % 05/24/21 13:20 Eos % (Auto) 0.2 % 05/24/21 13:20 Baso % (Auto) 0.4 % 05/24/21 13:20 Neut # (Auto) 3.49 10^3/uL (1.8-7.7) 05/24/21 13:20 Lymph # (Auto) 0.5 10^3/uL (0.8-4.8) L 05/24/21 13:20 [place] # (Auto) 0.7 10^3/uL (0.2-0.9) 05/24/21 13:20 Eos # (Auto) 0.0 10^3/uL (0.0-0.8) 05/24/21 13:20 Baso # (Auto) 0.0 10^3/uL (0.0-0.1) 05/24/21 13:20 Nucleated RBC % (auto) 0 % 05/24/21 13:20 Nucleated RBCs # 0.0 /100WBC 05/24/21 13:20 Sodium 133 mmol/L (136-145) L 05/24/21 13:20 Potassium 3.9 mmol/L (3.5-5.1) 05/24/21 13:20 Chloride 104 mmol/L (98-107) 05/24/21 13:20 Carbon Dioxide 17 mmol/L (22-29) L 05/24/21 13:20 Anion Gap 15.9 (5-19) 05/24/21 13:20 BUN 5 mg/dL (6-20) L 05/24/21 13:20 Creatinine 0.5 mg/dL (0.5-0.9) 05/24/21 13:20 GFR Calculation 136.0 mL/min (90-130) H 05/24/21 13:20 Glucose 93 mg/dL (65-115) 05/24/21 13:20 Calculated Osmolality 273 mOsm/kg (285-295) L 05/24/21 13:20 Calcium 8.4 mg/dL (8.5-10.5) L 05/24/21 13:20 Discharge Plan Discharge Patient Disposition: Home Clinical Impression: Diarrhea Condition: Stable Prescriptions: New Zofran 4 mg tablet 4 mg PO Q8H 3 Days Qty: 9 0RF Lomotil 2.5-0.025 mg tablet 1 tab PO TID PRN (Reason: diarrhea) Qty: 7 0RF Held hydroxychloroquine 200 mg tablet 200 mg PO BID Qty: 60 3RF Hold Instructions: Resume on 05/26/21. No Action norethindrone acetate 5 mg tablet 5 mg PO DAILY Qty: 84 3RF budesonide-formoterol [Symbicort] 80-4.5 mcg/actuation HFA aerosol inhaler 2 puff inhalation BID PRN0RF albuterol sulfate [Ventolin HFA] 90 mcg/actuation HFA aerosol inhaler 2 puff inhalation Q6H PRN0RF Xarelto 20 mg tablet 20 mg PO DAILY Qty: 90 3RF Rx Instructions: must administer with evening meal Discharge Orders: Discharge ED (Routine); Ordered 05/24/21 Ordered By: Logan Madera Referrals: Colette Moran FNP [Primary Care Provider] - Discharge Diet: Advance as tolerated Discharge Activity: Increase activity as tolerated Activity Restrictions/Additional Instructions: Follow-up with medical provider as directed. Take medications as prescribed. Return to the ER or your medical provider if condition worsens. Please read and understand discharge instructions. If any questions ask please. Make sure you drink plenty of water. Stop the promethazine. Coding Level of Care Code ED Executive Vice President Of Sales for Chg Fwd Exam Comprehensive Documented by User: Dru Bansal MD 05/25/21 12:57 HPI - Nausea/Vomiting/Diarrhea General: Chief complaint: Nausea/Vomiting/Diarrhea Stated complaint: unable to keep fluids down, was tested for COVID Time Seen by Provider: 05/24/21 13:21 PFSH ED PFSH: Medical History Anxiety Depression High risk medication use Immunization counseling No pertinent past medical history neg hx: htn,dm,thyroid,dvt/pe Rheumatoid arthritis with rheumatoid factor Surgical History H/O foot surgery (~1991) left-- fracture in growth plate Previous section (~2010) S/P cholecystectomy (~01/2019) S/P tonsillectomy Family History Grandmother Diabetes Hypertension Hyperlipidemia Stroke Paternal grandmother Heart disease Maternal grandmother Uterine cancer, Onset Age: 50 MGM Grandfather Diabetes Hypertension Hyperlipidemia Stroke Paternal grandfather Heart disease Paternal grandfather Maternal grandfather Father Diabetes Brother Diabetes Family/Other Diabetes Maternal aunt Breast cancer Paternal Cousin--dx'd in her early 30s Mother Hypertension Heart disease Family history of thyroid problem Other CAD (coronary artery disease) Rheumatoid arthritis Denies family history of Colon cancer Ovarian cancer Lupus Chronic kidney disease (CKD) Lung disease Cancer Social History Quit status (tobacco): has quit using tobacco Year quit tobacco: 2011 [id number] Former quit date comment: off and on Second hand smoke exposure: Yes Smoking risk assessment/counseling performed?: Yes Alcohol intake: never Lives independently: Yes Household members: significant other Marital status: Current occupational status: unemployed Pets and animals: Yes History of recent travel: No Current gender identity: Female Additional social history: - Tobacco use: Denies Alcohol use: Denies Drug use: Denies Course Vital Signs: Vital signs: Vital Signs Temperature 99.4 F 05/24/21 15:01 Pulse Rate 91 05/24/21 15:01 Respiratory Rate 18 05/24/21 15:01 Blood Pressure 140/88 05/24/21 15:01 Pulse Oximetry 98 05/24/21 15:01 MDM - Nausea/Vomiting/Diarrhea Medical Decision Making Patient appears to have gastroenteritis. Mild low sodium. Potassium is normal. White count is normal. Patient was given a liter of fluids and felt much better. Medication was changed. Encouraged follow-up primary care provider. I have reviewed this documentation by Logan Madera NP. Dru Bansal MD Emergency Medicine Lab Data : 05/24/21 13:20 05/24/21 13:20 Laboratory Results WBC 4.7 10^3/uL (4.0-10.0) 05/24/21 13:20 RBC 4.96 10^6/uL (4.1-5.3) 05/24/21 13:20 Hgb 12.0 g/dL (11.5-15.3) 05/24/21 13:20 Hct 39.6 % (37.0-47.0) 05/24/21 13:20 MCV 79.8 fl (81-99) L 05/24/21 13:20 MCH 24.2 pg (28.0-34.0) L 05/24/21 13:20 MCHC 30.3 g/dL (30.0-36.0) 05/24/21 13:20 RDW 16.5 % (12.1-15.1) H 05/24/21 13:20 Plt Count 233 10^3/cmm (130-400) 05/24/21 13:20 MPV 11.5 fL (7.4-10.4) H 05/24/21 13:20 Neut % (Auto) 75.0 % 05/24/21 13:20 Lymph % (Auto) 10.1 % 05/24/21 13:20 [place] % (Auto) 13.9 % 05/24/21 13:20 Eos % (Auto) 0.2 % 05/24/21 13:20 Baso % (Auto) 0.4 % 05/24/21 13:20 Neut # (Auto) 3.49 10^3/uL (1.8-7.7) 05/24/21 13:20 Lymph # (Auto) 0.5 10^3/uL (0.8-4.8) L 05/24/21 13:20 [place] # (Auto) 0.7 10^3/uL (0.2-0.9) 05/24/21 13:20 Eos # (Auto) 0.0 10^3/uL (0.0-0.8) 05/24/21 13:20 Baso # (Auto) 0.0 10^3/uL (0.0-0.1) 05/24/21 13:20 Nucleated RBC % (auto) 0 % 05/24/21 13:20 Nucleated RBCs # 0.0 /100WBC 05/24/21 13:20 Sodium 133 mmol/L (136-145) L 05/24/21 13:20 Potassium 3.9 mmol/L (3.5-5.1) 05/24/21 13:20 Chloride 104 mmol/L (98-107) 05/24/21 13:20 Carbon Dioxide 17 mmol/L (22-29) L 05/24/21 13:20 Anion Gap 15.9 (5-19) 05/24/21 13:20 BUN 5 mg/dL (6-20) L 05/24/21 13:20 Creatinine 0.5 mg/dL (0.5-0.9) 05/24/21 13:20 GFR Calculation 136.0 mL/min (90-130) H 05/24/21 13:20 Glucose 93 mg/dL (65-115) 05/24/21 13:20 Calculated Osmolality 273 mOsm/kg (285-295) L 05/24/21 13:20 Calcium 8.4 mg/dL (8.5-10.5) L 05/24/21 13:20 Discharge Plan Discharge Patient Disposition: Home Clinical Impression: Diarrhea Condition: Stable Prescriptions: New Zofran 4 mg tablet 4 mg PO Q8H 3 Days Qty: 9 0RF Lomotil 2.5-0.025 mg tablet 1 tab PO TID PRN (Reason: diarrhea) Qty: 7 0RF Held hydroxychloroquine 200 mg tablet 200 mg PO BID Qty: 60 3RF Hold Instructions: Resume on 05/26/21. No Action norethindrone acetate 5 mg tablet 5 mg PO DAILY Qty: 84 3RF budesonide-formoterol [Symbicort] 80-4.5 mcg/actuation HFA aerosol inhaler 2 puff inhalation BID PRN0RF albuterol sulfate [Ventolin HFA] 90 mcg/actuation HFA aerosol inhaler 2 puff inhalation Q6H PRN0RF Xarelto 20 mg tablet 20 mg PO DAILY Qty: 90 3RF Rx Instructions: must administer with evening meal Discharge Orders: Discharge ED (Routine); Ordered 05/24/21 Ordered By: Logan Madera Referrals: Colette Moran FNP [Primary Care Provider] - Discharge Diet: Advance as tolerated Discharge Activity: Increase activity as tolerated Activity Restrictions/Additional Instructions: Follow-up with medical provider as directed. Take medications as prescribed. Return to the ER or your medical provider if condition worsens. Please read and understand discharge instructions. If any questions ask please. Make sure you drink plenty of water. Stop the promethazine. Coding Level of Care Code ED Executive Vice President Of Sales for Inga Fwd Exam Comprehensive
[2021-05-24 13:33] LABS: Basophils % 0.4 %; Eosinophils % 0.2 %; Hematocrit 39.6 % (37.0-47.0); Lymphocytes # 0.5 10^3/uL (0.8-4.8); Lymphocytes % 10.1 %; Mean Corpuscular HGB Conc 30.3 g/dL (30.0-36.0); Mean Corpuscular Hemoglobin 24.2 pg (28.0-34.0); Mean Corpuscular Volume 79.8 fl (81-99); Mean Platelet Volume 11.5 fL (7.4-10.4); Monocytes # 0.7 10^3/uL (0.2-0.9); Monocytes % 13.9 %; Neutrophils # 3.49 10^3/uL (1.8-7.7); Nucleated Red Blood Cells % 0 %; Platelet Count 233 10^3/cmm (130-400); Red Blood Count 4.96 10^6/uL (4.1-5.3); Red Cell Distribution Width 16.5 % (12.1-15.1); White Blood Count 4.7 10^3/uL (4.0-10.0)
[2021-05-24] MEDS: sodium chloride 0.9% 1,000 ML 999 ML IV (13:35)
[2021-05-24] MEDS: ondansetron 2 mg/ML SDV 2 mL 4 MG IVP (13:35)
[2021-05-24] MEDS: diphenoxylate/atropine Tablet 2 TAB PO (13:47)
[2021-05-24 13:57] LABS: Blood Urea Nitrogen 5 mg/dL (6-20); Calcium 8.4 mg/dL (8.5-10.5); Carbon Dioxide 17 mmol/L (22-29); Chloride 104 mmol/L (98-107); Glucose 93 mg/dL (65-115); Osmolality Calculated 273 mOsm/kg (285-295); Sodium 133 mmol/L (136-145)
[2021-05-24 13:58] LABS: Anion Gap 15.9 (5-19); Potassium 3.9 mmol/L (3.5-5.1)
[2021-05-24 15:00] VITALS: BP 140/88; PULSE 91; RESP 18; TEMP 37.4; O2SAT 98
[2021-05-24 15:01] VITALS: BP 140/88; PULSE 91; RESP 18; TEMP 37.4; O2SAT 98
== END 2021-05-24 15:06 | disposition home or self-care (01) ==
PROVIDERS: Emergency Provider Nurse Practitioner Family; PCP Nurse Practitioner
DX: R19.7 Diarrhea, unspecified (principal); Z87.891 Personal history of nicotine dependence
CPT/HCPCS: 80048; 85025; 96361; 96374; 99283; J2405; J7030

== ENCOUNTER 2021-06-09 09:51 | Outpatient (CLI) | payer BC, MEDICAID, SELFPAY ==
--- NOTE | 2021-06-09 09:59 | MM_ITS ---
WS: [id number] BILATERAL DIGITAL SCREENING MAMMOGRAPHY WITH CAD CLINICAL INFORMATION: SCREENING HISTORY: Screening mammogram. No current complaints. COMPARISON: 2016 and 2012 TECHNIQUE: Bilateral CC and MLO views. FINDINGS: Scattered fibroglandular densities bilaterally. Incidental intramammary lymph nodes. No suspicious [place] mass, asymmetry, calcifications, or architectural distortion. No evidence of malignancy. MM/[place] [id number] IMPRESSION: BI-RADS: 2-Benign FOLLOW UP: 1 Year Follow-up Recommend return to annual screening mammography.
== END 2021-06-09 09:52 | disposition home or self-care (01) ==
PROVIDERS: PCP Nurse Practitioner; Visit Provider Nurse Practitioner
DX: Z12.31 Encounter for screening mammogram for malignant neoplasm of breast (principal)
CPT/HCPCS: 77067

== ENCOUNTER → 2021-09-28 12:51 | Outpatient (BNVA) | payer BC, MEDICAID, SELFPAY | PROVIDERS: PCP Nurse Practitioner; Visit Provider Internal Medicine Cardiovascular Disease | DX: I70.208 Unspecified atherosclerosis of native arteries of extremities, other extremity (principal); G47.33 Obstructive sleep apnea (adult) (pediatric); Z87.891 Personal history of nicotine dependence; J98.4 Other disorders of lung; E66.9 Obesity, unspecified; Z68.43 Body mass index [BMI] 50.0-59.9, adult; Z86.16 Personal history of COVID-19 | CPT/HCPCS: 99213 ==

== ENCOUNTER 2021-10-23 12:21 | Emergency (ER) | payer BC, MEDICAID, SELFPAY ==
[2021-10-23 12:29] VITALS: PULSE 204; RESP 22; TEMP 36.6; O2SAT 98; BMI 59.1
--- NOTE | 2021-10-23 12:30 | ECG_ITS ---
[facility] Test Date: 2021-10-23 Pat Name: Josette Goldsmith Department: Room: Gender: Female Audio Technician: : 1980 Requested By: Rob Barraza Order Number: [id number] Michel MD: Gunner Billinsg M.D. Measurements Intervals [place] Rate: 204 P: [place]: QRS: 42 QRSD: 90 T: -4 QT: 205 QTc: 378 Interpretive Statements SUPRAVENTRICULAR TACHYCARDIA NONSPECIFIC ST & T-WAVE ABNORMALITY CRITICAL TEST RESULT Compared to ECG 09/17/2019 18:28:57 T-wave abnormality now present Sinus rhythm no longer present Electronically Signed On 10-24-2021 12:20:59 CDT by Gunner Billings M.D. [id number]
[2021-10-23] MEDS: adenosine 3 mg/mL SDV 2mL 6 MG IVP (12:54)
[2021-10-23] MEDS: adenosine 3 mg/mL SDV 2mL 12 MG IVP (12:54)
--- NOTE | 2021-10-23 12:55 | XR_ITS ---
WS: [id number] PORTABLE CHEST HISTORY: dyspnea/cough COMPARISON: 06/16/2021 Lungs are clear and well expanded. No pleural effusion or pneumothorax. Cardiac size: Normal. Mediastinum/Aorta: Normal mediastinum. No osseous abnormality seen. XR/XR chest 1V portable [id number] IMPRESSION: Unremarkable portable chest.
[2021-10-23 13:04] LABS: Basophils # 0.1 10^3/uL (0.0-0.1); Basophils % 0.5 %; Eosinophils # 0.1 10^3/uL (0.0-0.8); Eosinophils % 1.4 %; Hematocrit 44.5 % (37.0-47.0); Hemoglobin 14.1 g/dL (11.5-15.3); Lymphocytes % 19.8 %; Mean Corpuscular HGB Conc 31.7 g/dL (30.0-36.0); Mean Corpuscular Hemoglobin 25.6 pg (28.0-34.0); Mean Corpuscular Volume 80.8 fl (81-99); Mean Platelet Volume 11.5 fL (7.4-10.4); Monocytes # 0.7 10^3/uL (0.2-0.9); Monocytes % 7.2 %; Neutrophils # 7.22 10^3/uL (1.8-7.7); Neutrophils % 70.8 %; Nucleated Red Blood Cells % 0 %; Platelet Count 397 10^3/cmm (130-400); Red Blood Count 5.51 10^6/uL (4.1-5.3); Red Cell Distribution Width 15.7 % (12.1-15.1); White Blood Count 10.2 10^3/uL (4.0-10.0)
[2021-10-23 13:15] VITALS: BP 151/103; PULSE 86; RESP 12; O2SAT 96
[2021-10-23 13:37] LABS: Alanine Aminotransferase 18 U/L (0-33); Albumin Level 4.7 g/dL (3.5-5.2); Alkaline Phosphatase 92 IU/L (35-105); Anion Gap 19.1 (5-19); Aspartate Amino Transferase 17 U/L (0-32); Blood Urea Nitrogen 6 mg/dL (6-20); Calcium 9.4 mg/dL (8.5-10.5); Carbon Dioxide 23 mmol/L (22-29); Chloride 100 mmol/L (98-107); Globulin 3.2 g/dL (1.3-4.6); Glomerular Filtration Rate 92.2 mL/min (90-130); Glucose 115 mg/dL (65-115); Magnesium 2.1 mg/dL (1.7-2.3); Osmolality Calculated 285 mOsm/kg (285-295); Potassium 4.1 mmol/L (3.5-5.1); Sodium 138 mmol/L (136-145); Thyroid Stimulating Hormone 2.57 uIU/mL (0.27-4.20); Total Bilirubin 0.9 mg/dL (0.15-1.2); Total Protein 7.9 g/dL (6.6-8.7)
[2021-10-23] MEDS: ondansetron 2 mg/ML SDV 2 mL 4 MG IVP (13:37)
[2021-10-23] MEDS: metoprolol succinate ER (24 HR) 25 mg Tablet PO (13:38)
[2021-10-23 13:58] VITALS: BP 139/103; PULSE 92; RESP 13; O2SAT 94
--- NOTE | 2021-10-23 14:40 | W.ED.CHESTPA ---
HPI - Chest Pain General: Chief Complaint: Chest Pain Stated Complaint: chest pressure Time Seen by Provider: 10/23/21 12:54 Source: patient Mode of arrival: ambulatory Limitations: no limitations History of Present Illness: 40-year-old female presents emergency room complaining of rapid heart rate. On arrival she had an EKG done in the triage area showed SVT with a heart rate in the 100 [id number]. Patient states she was driving down the street was just a few blocks from the hospital and began to suddenly have shortness of breath for the sensation of palpitations and rapid heart rate she became diaphoretic some mild chest discomfort. She arrived here she is found to be in SVT she is previously had episodes of SVT. She does states she had a high stress level recently with a lot of family issues several deaths in the family she has not used any illicit drugs large amounts of caffeine or any other stimulants. She has no known history of coronary artery disease in fact recently had an angiogram because of some complications after COVID and then developed a right arm DVT this was over a year ago she still is on her anticoagulation for that. MD complaint: chest discomfort Onset (ago): minute(s) Timing of current episode: episodic Prior episodes: No Onset: during rest Pain location: substernal Pain radiation: none Severity: mild Quality: tightness Relieving factors: nothing Exacerbating factors: nothing Associated symptoms: Reports diaphoresis, dyspnea and palpitations; Deny abdominal pain, fever(s), leg edema, nausea, sense of impending doom, syncope or vomiting Review of Systems Const: Reports: diaphoresis; Denies: fever(s), chills, fatigue or malaise ENMT: Denies: throat pain, ear or mastoid pain, nasal discharge or nasal congestion Card: Reports: chest pain and palpitations; Denies: irregular heart rhythm, edema, swelling of feet/ankles or syncope Resp: Reports: dyspnea; Denies: productive cough, non-productive cough or wheezing GI: Denies: abdominal pain, nausea or vomiting : Denies: flank pain, difficulty voiding, dysuria, urinary frequency or urinary urgency Skin/Breast: Denies: rash or pruritus PFS ED PFSH: Medical History Anxiety Depression High risk medication use Immunization counseling No pertinent past medical history neg hx: htn,dm,thyroid,dvt/pe Rheumatoid arthritis with rheumatoid factor Surgical History H/O foot surgery (~1991) left-- fracture in growth plate Previous section (~2010) S/P cholecystectomy (~01/2019) S/P tonsillectomy Family History Grandmother Diabetes Hypertension Hyperlipidemia Stroke Paternal grandmother Heart disease Maternal grandmother Uterine cancer, Onset Age: 50 MGM Grandfather Diabetes Hypertension Hyperlipidemia Stroke Paternal grandfather Heart disease Paternal grandfather Maternal grandfather Father Diabetes Brother Diabetes Family/Other Diabetes Maternal aunt Breast cancer Paternal Cousin--dx'd in her early 30s Mother Hypertension Heart disease Family history of thyroid problem Other CAD (coronary artery disease) Rheumatoid arthritis Denies family history of Colon cancer Ovarian cancer Lupus Chronic kidney disease (CKD) Lung disease Cancer Social History Smoking and tobacco status: former smoker Quit status (tobacco): has quit using tobacco Year quit tobacco: 2011 <[id number] Former quit date comment: off and on Second hand smoke exposure: Yes Smoking risk assessment/counseling performed?: Yes Alcohol intake: never Lives independently: Yes Household members: significant other Marital status: Current occupational status: unemployed Pets and animals: Yes History of recent travel: No Current gender identity: Female Additional social history: - Tobacco use: Denies Alcohol use: Denies Drug use: Denies Physical Exam Const: GENERAL APPEARANCE: cooperative and anxious NUTRITIONAL APPEARANCE: obese ORIENTATION/CONSCIOUSNESS: Yes awake, Yes oriented to person, Yes oriented to place and Yes oriented to time HENMT: COMMON NORMALS: normocephalic and atraumatic HEAD & SCALP: normocephalic and atraumatic Eye: COMMON NORMALS: Equal, round and reactive pupils present, EOMs intact bilaterally, conjunctivae normal and no scleral icterus CONJUNCTIVA: Yes conjunctivae normal PUPIL: Yes Equal, round and reactive pupils present Neck/C-Spine: COMMON NORMALS: full ROM, no lymphadenopathy, supple and no JVD Resp: COMMON NORMALS: normal respiratory effort, No retractions, No use of accessory muscles and clear to auscultation bilaterally AUSCULTATION: clear to auscultation bilaterally Cardio: COMMON NORMALS: no JVD, regular rhythm and No murmurs present (Cardio) RATE: tachycardic RHYTHM: regular rhythm Extremity: COMMON NORMALS: normal to inspection, capillary refill normal, no clubbing, cyanosis or edema, no calf tenderness and no pedal edema Neuro: SENSORIUM/ORIENTATION: Yes oriented to person, Yes oriented to place and Yes oriented to time Skin: COMMON NORMALS: no rashes or lesions noted GENERAL SKIN EXAM: no rashes or lesions noted Course Vital Signs: Vital signs: Vital Signs Temperature 97.8 F 10/23/21 12:29 Pulse Rate 92 10/23/21 13:58 Respiratory Rate 13 10/23/21 13:58 Blood Pressure 139/103 10/23/21 13:58 Pulse Oximetry 94 10/23/21 13:58 MDM - Chest Pain Medical Decision Making Patient responded to conversion with adenosine maintained normal rate. She is feeling somewhat drained but better. We will go and discharge her home with Toprol-XL 25 daily. She is already been seeing Dr. Will. She is asked to call his office to make a follow-up appointment for next week. Discussed different potential triggers for SVT if she has any recurrence return to the emergency room. Medical Records I reviewed the patient's medical records. Lab Data I reviewed the patient's lab results. : 10/23/21 12:50 10/23/21 12:50 Radiology Impressions Chest X-Ray 10/23/21 12:55 IMPRESSION: Unremarkable portable chest. Laboratory Results WBC 10.2 10^3/uL (4.0-10.0) H 10/23/21 12:50 RBC 5.51 10^6/uL (4.1-5.3) H 10/23/21 12:50 Hgb 14.1 g/dL (11.5-15.3) 10/23/21 12:50 Hct 44.5 % (37.0-47.0) 10/23/21 12:50 MCV 80.8 fl (81-99) L 10/23/21 12:50 MCH 25.6 pg (28.0-34.0) L 10/23/21 12:50 MCHC 31.7 g/dL (30.0-36.0) 10/23/21 12:50 RDW 15.7 % (12.1-15.1) H 10/23/21 12:50 Plt Count 397 10^3/cmm (130-400) 10/23/21 12:50 MPV 11.5 fL (7.4-10.4) H 10/23/21 12:50 Neut % (Auto) 70.8 % 10/23/21 12:50 Lymph % (Auto) 19.8 % 10/23/21 12:50 Bacon % (Auto) 7.2 % 10/23/21 12:50 Eos % (Auto) 1.4 % 10/23/21 12:50 Baso % (Auto) 0.5 % 10/23/21 12:50 Neut # (Auto) 7.22 10^3/uL (1.8-7.7) 10/23/21 12:50 Lymph # (Auto) 2.0 10^3/uL (0.8-4.8) 10/23/21 12:50 Bacon # (Auto) 0.7 10^3/uL (0.2-0.9) 10/23/21 12:50 Eos # (Auto) 0.1 10^3/uL (0.0-0.8) 10/23/21 12:50 Baso # (Auto) 0.1 10^3/uL (0.0-0.1) 10/23/21 12:50 Nucleated RBC % (auto) 0 % 10/23/21 12:50 Nucleated RBCs # 0.0 /100WBC 10/23/21 12:50 Sodium 138 mmol/L (136-145) 10/23/21 12:50 Potassium 4.1 mmol/L (3.5-5.1) 10/23/21 12:50 Chloride 100 mmol/L (98-107) 10/23/21 12:50 Carbon Dioxide 23 mmol/L (22-29) 10/23/21 12:50 Anion Gap 19.1 (5-19) H 10/23/21 12:50 BUN 6 mg/dL (6-20) 10/23/21 12:50 Creatinine 0.7 mg/dL (0.5-0.9) 10/23/21 12:50 GFR Calculation 92.2 mL/min (90-130) 10/23/21 12:50 Glucose 115 mg/dL (65-115) 10/23/21 12:50 Calculated Osmolality 285 mOsm/kg (285-295) 10/23/21 12:50 Calcium 9.4 mg/dL (8.5-10.5) 10/23/21 12:50 Magnesium 2.1 mg/dL (1.7-2.3) 10/23/21 12:50 Total Bilirubin 0.9 mg/dL (0.15-1.2) 10/23/21 12:50 AST 17 U/L (0-32) 10/23/21 12:50 ALT 18 U/L (0-33) 10/23/21 12:50 Alkaline Phosphatase 92 IU/L (35-105) 10/23/21 12:50 Total Protein 7.9 g/dL (6.6-8.7) 10/23/21 12:50 Albumin 4.7 g/dL (3.5-5.2) 10/23/21 12:50 Globulin 3.2 g/dL (1.3-4.6) 10/23/21 12:50 TSH 2.57 uIU/mL (0.27-4.20) 10/23/21 12:50 Discharge Plan Discharge Patient Disposition: Home Clinical Impression: SVT (supraventricular tachycardia) Condition: Stable Prescriptions: New Toprol XL 25 mg tablet extended release 24 hr 25 mg PO DAILY Qty: 30 0RF No Action norethindrone acetate 5 mg tablet 5 mg PO DAILY Qty: 84 1RF Xarelto 20 mg tablet 20 mg PO DAILY Qty: 90 3RF Rx Instructions: must administer with evening meal Discharge Orders: Discharge ED (Routine); Ordered 10/23/21 Ordered By: Rob Morin Referrals: Colette Moran, D[employer] NETWORK INSTALLER [Primary Care Provider] - Discharge Diet: Usual diet Discharge Activity: Resume usual activity Patient Instructions: Opioid Safety Activity Restrictions/Additional Instructions: Follow-up with cardiology within the next week. Coding Level of Care Code ED Residential Mental Health Worker for Inga Fwd Exam Comprehensive
== END 2021-10-23 14:24 | disposition home or self-care (01) ==
PROVIDERS: Emergency Provider Family Medicine; PCP Nurse Practitioner
DX: I47.1 Supraventricular tachycardia (principal); Z87.891 Personal history of nicotine dependence
CPT/HCPCS: 71045; 80053; 83735; 84443; 85025; 93005; 96374; 96375; 99284; J0153; J2405

== ENCOUNTER → 2021-11-02 13:38 | Outpatient (BNVA) | payer BC, MEDICAID, SELFPAY | PROVIDERS: PCP Nurse Practitioner Family; Visit Provider Nurse Practitioner Family | DX: I47.1 Supraventricular tachycardia (principal) | CPT/HCPCS: 93270; 99213; 99214 ==

== ENCOUNTER 2022-02-16 10:57 | Outpatient (CLI) | payer BC, MEDICAID, SELFPAY ==
--- NOTE | 2022-02-16 11:06 | MM_ITS ---
WS: [id number] DIAGNOSTIC BILATERAL DIGITAL BREAST TOMOSYNTHESIS MAMMOGRAPHY WITH CAD Bilateral breast ultrasound, limited HISTORY: R59.1 - Generalized enlarged lymph nodes COMPARISON: 06/09/2021, 11/18/2016 TECHNIQUE: Bilateral craniocaudad, mediolateral oblique, and mediolateral views are submitted with to mosynthesis and SM. Spot compression bilateral CC views. Computer aided detection utilized. Breast composition: There are scattered areas of fibroglandular density. Transvaginal markers are stan licha near the axillary tail of each breast. No underlying mass is identified. Benign-appearing lymph n odes within each axillary tail. No mass or distortion. No calcification. Ultrasound to follow. Bilateral breast ultrasound, limited. Ultrasound of each breast is directed to the upper outer quadrant in the area of pain. No suspicious masses. No skin thickening. There are benign lymph nodes. MM/[id number] IMPRESSION: BI-RADS: 2-Benign FOLLOW UP: 1 Year Follow-up
== END 2022-02-16 10:58 | disposition home or self-care (01) ==
LOC: RAD 10:58
PROVIDERS: PCP Nurse Practitioner Family; Visit Provider Obstetrics & Gynecology
DX: R59.1 Generalized enlarged lymph nodes (principal); N64.4 Mastodynia
CPT/HCPCS: 76642; 77062

== ENCOUNTER → 2023-05-19 10:22 | Outpatient (BNVA) | payer BC, MEDICAID, SELFPAY | PROVIDERS: PCP Nurse Practitioner Family; Visit Provider Obstetrics & Gynecology | DX: Z01.419 Encounter for gynecological examination (general) (routine) without abnormal findings (principal) | CPT/HCPCS: 83001; 84443 ==

== ENCOUNTER → 2023-06-02 10:34 | Outpatient (BNVA) | payer BC, MEDICAID, SELFPAY | PROVIDERS: PCP Nurse Practitioner Family; Visit Provider Obstetrics & Gynecology | DX: N91.5 Oligomenorrhea, unspecified (principal) | CPT/HCPCS: 76830 ==

== ENCOUNTER → 2023-07-27 09:30 | Outpatient (BNVA) | payer BC, MEDICAID, SELFPAY | PROVIDERS: PCP Nurse Practitioner Family; Referring Provider Obstetrics & Gynecology; Visit Provider Internal Medicine | DX: R79.89 Other specified abnormal findings of blood chemistry (principal); R63.5 Abnormal weight gain | CPT/HCPCS: 84439; 84443; 86376; 86800 ==

== ENCOUNTER 2023-09-22 14:41 | Outpatient (CLI) | payer BC, MEDICAID, SELFPAY ==
[2023-09-22 15:37] LABS: Thyroid Stimulating Hormone 2.76 uIU/mL (0.27-4.20)
== END 2023-09-22 14:42 | disposition home or self-care (01) ==
LOC: LAB 14:42
PROVIDERS: PCP Nurse Practitioner Family; Visit Provider Internal Medicine
DX: R79.89 Other specified abnormal findings of blood chemistry (principal); R63.5 Abnormal weight gain
CPT/HCPCS: 36415; 84439; 84443

== ENCOUNTER → 2023-09-27 09:54 | Outpatient (BNVA) | payer BC, MEDICAID, SELFPAY | PROVIDERS: PCP Nurse Practitioner Family; Visit Provider Internal Medicine | DX: N91.2 Amenorrhea, unspecified (principal); R79.89 Other specified abnormal findings of blood chemistry; R63.5 Abnormal weight gain; Z86.79 Personal history of other diseases of the circulatory system | CPT/HCPCS: 36415; 83036 ==

== ENCOUNTER 2024-11-21 15:02 | Emergency (ER) | payer SELFPAY ==
[2024-11-21 15:42] VITALS: BP 164/99; PULSE 107; RESP 26; TEMP 36.6; O2SAT 97
--- NOTE | 2024-11-21 16:29 | W.ED.ALLEREA ---
HPI - Allergic Reaction General: Chief complaint: Allergic Reaction Stated complaint: doc re, med dose change not feeling well Time Seen by Provider: 11/21/24 16:16 History of Present Illness: HPI narrative: 43-year-old female with history of anxiety presents to the ED with complaint of increased anxiety since this morning after taking her first dose of Wellbutrin 150 mg. Patient states that she has been on paroxetine for the last 2 years but was slowly weaning off in the last week so that she can start Wellbutrin. She states that after taking the Wellbutrin this morning she started feeling very anxious and like a hot towel is laying over my chest . She also reports that she ran out of her buspirone 2 days ago but was able to fill it and take her regular dose this morning. She called her primary care provider this morning and told her about her symptoms. She recommended that the patient come to the ED for evaluation and management. Denies any true chest pain, palpitations, dizziness, lightheadedness, shortness of breath, difficulty swallowing or breathing. No other complaints at this time. Associated symptoms: Deny dizziness, nausea or vomiting Related Data Home Medications ?Medication ?Instructions ?Recorded ?Confirmed paroxetine HCl 20 mg tablet 20 mg PO DAILY 05/19/23 06/14/24 Previous Rx's ?Medication ?Instructions ?Recorded norethindrone acetate 5 mg tablet 5 mg PO DAILY #84 tabs 02/18/23 levothyroxine 25 mcg tablet See Rx Instructions .Route 03/26/24 .COMPLEX #90 tabs olanzapine 5 mg tablet (Zyprexa) 5 mg PO QPM #10 tabs 11/21/24 Allergies Allergy/AdvReac Type Severity Reaction Status Date / Time sulfamethoxazole (From Allergy ALGY-Rash Verified 11/21/24 15:47 Bactrim) trimethoprim (From Bactrim) Allergy ALGY-Rash Verified 11/21/24 15:47 bupropion (From Wellbutrin) AdvReac ADR-Anxiety Verified 11/21/24 15:47 Review of Systems Const: Reports: diaphoresis ENMT: Denies: throat pain Card: Denies: chest pain or palpitations Resp: Denies: dyspnea GI: Denies: nausea or vomiting : Denies: flank pain or difficulty voiding Musc: Denies: neck pain, back pain or extremity pain Neuro: Denies: weakness in extremities or dizziness Psych: Reports: anxiety and panic attacks PFSH ED PFSH: Medical History (Updated 11/21/24 @ 18:30 by AHMET Mares) SVT (supraventricular tachycardia) Immunization counseling High risk medication use Rheumatoid arthritis with rheumatoid factor No pertinent past medical history neg hx: htn,dm,thyroid,dvt/pe Depression Anxiety Surgical History S/P tonsillectomy H/O foot surgery (~1991) left-- fracture in growth plate Previous section (~2010) S/P cholecystectomy (~01/2019) Family History Grandmother Diabetes Hypertension Hyperlipidemia Stroke Paternal grandmother Heart disease Maternal grandmother Uterine cancer, Onset Age: 50 MGM Grandfather Diabetes Hypertension Hyperlipidemia Stroke Paternal grandfather Heart disease Paternal grandfather Maternal grandfather Father Diabetes Brother Diabetes Family/Other Diabetes Maternal aunt Breast cancer Paternal Cousin--dx'd in her early 30s Mother Hypertension Heart disease Family history of thyroid problem Other CAD (coronary artery disease) Rheumatoid arthritis Denies family history of Colon cancer Ovarian cancer Lupus Chronic kidney disease (CKD) Lung disease Cancer Social History Smoking and tobacco/nicotine status: never used tobacco/nicotine Substance/Drug Use: never Additional social history: - Tobacco use: Denies Alcohol use: Denies Drug use: Denies Do you think of yourself as: Straight/Heterosexual Current gender identity: Female Physical Exam Const: COMMON NORMALS: no acute distress and alert GENERAL APPEARANCE: cooperative HENMT: COMMON NORMALS: normocephalic and external ears normal HEAD & SCALP: normocephalic EXTERNAL EAR: Yes external ears normal Eye: COMMON NORMALS: EOMs intact bilaterally and conjunctivae normal CONJUNCTIVA: Yes conjunctivae normal Neuro: SENSORIUM/ORIENTATION: Yes alert Psych: COMMON NORMALS: Normal thought process present, cooperative and speech normal ATTITUDE: Yes agitated ACTIVITY/MOTOR BEHAVIOR: Yes appropriate eye contact SPEECH: Yes normal speech THOUGHT PROCESS: Normal thought process present Course Reevaluation(s): Reevaluation #1: Improved Vital Signs: Vital signs: Vital Signs Temperature 97.9 F 07/30/25 15:42 Pulse Rate 96 11/21/24 18:57 Respiratory Rate 22 H 11/21/24 17:18 Blood Pressure 0/0 11/21/24 18:57 Pulse Oximetry 97 11/21/24 18:57 Oxygen Delivery Me thod Room Air 11/21/24 15:42 MDM - Allergic Reaction Medical Decision Making Patient is a 43-year-old female that started on Wellbutrin today, finished dosing her paroxetine last p.m., and about noon started having a major panic attack. She had racing thoughts without suicide thoughts. She felt like she was running into place with her thoughts. She has not had this occur before. She was recognized to have a anxiety attack. Unknown what brought this on other than the Wellbutrin. Gave patient Zyprexa x 1, and Ativan IM x 1. She does feel better, does not have racing thoughts, and feels more linear in her thought process. Discussed solutions with patient, and she will get with her primary care physician tomorrow for follow-up. I have given her Zyprexa x 1 dispensed from the ED, and sent Zyprexa to the pharmacy. No radiology studies performed this visit Discharge Plan Discharge Patient Disposition: Home Clinical Impression: Anxiety as acute reaction to exceptional stress Condition: Stable Prescriptions: New olanzapine [Zyprexa] 5 mg tablet 5 mg PO QPM Qty: 10 0RF No Action paroxetine HCl 20 mg tablet 20 mg PO DAILY norethindrone acetate 5 mg tablet 5 mg PO DAILY Qty: 84 3RF levothyroxine 25 mcg tablet See Rx Instructions .ROUTE .COMPLEX Qty: 90 0RF Dose Instruction: Take 1 tablet by mouth once daily Rx Instructions: Take 1 tablet by mouth once daily Discharge Orders: Discharge ED (Routine); Ordered 11/21/24 Ordered By: Francine Paz Referrals: Shannon Beal FNP [Primary Care Provider, Unknown] Discharge Diet: Usual diet Discharge Activity: Resume usual activity Patient Instructions: Patient Portal & Carolyn Instructions, Anxiety (ED) Activity Restrictions/Additional Instructions: Take your Zyprexa at night as needed. Discussed with your doctor tomorrow. Call tomorrow for appointment. Hold your Wellbutrin/paroxetine in the interim awaiting to hear from your doctor Return to ED for worsening symptoms, suicide ideas, or homicidal ideas Stand Alone Forms: Work/School Release Print Language: Slovak Coding Level of Care Code ED Watch Repairer Apprentice for Inga Estevez
[2024-11-21] MEDS: LORazepam 1 MG/0.5 ML injection 2 MG IM (17:11)
[2024-11-21 17:18] VITALS: PULSE 91; RESP 22; O2SAT 98
--- NOTE | 2024-11-21 17:42 | ECG_ITS ---
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 Measurements Intervals [place] Rate: 90 P: 32 KS: 156 QRS: 9 QRSD: 93 T: 26 QT: 355 QTc: 435 Interpretive Statements SINUS RHYTHM NONSPECIFIC T-WAVE ABNORMALITY Compared to ECG 10/23/2021 12:34:56 Supraventricular tachycardia no longer present T-wave abnormality still present Electronically Signed On 11-22-2024 10:28:53 CDT by Serafin Godoy M.D. [email or web address]
[2024-11-21 18:57] VITALS: BP 0/0; PULSE 96; O2SAT 97
--- OUTSIDE RECORDS SUMMARY | 2024-11-23 02:50 | XMS_ITS | Encounter Summary ---
Author Organization [facility] Address [address] [place] [address] Care Team Providers Care Web Marketing Manager Name Role Phone Unavailable Primary Care Provider Unavailabl e Encounter Details Date Type Department Care Team (Late st Contact Info) Description 12/10/2004 Emergency [facility] Emergency Department [address] 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 Gender Identity Not on file Sexual Orientation Not on file documented as of this encounter Plan of Treatment Not on file documented as of this encounter Procedures Procedure Name Priority Date/Time Associated Diagnosis Comments CBC WITH DIFFERENTIAL Routine 12/11/2004 5:30 AM CDT LIPASE Routine 12/11/2004 5:30 AM CDT AMYLASE Routine 12/11/2004 5:30 AM CDT COMPREHENSIVE METABOLIC PANEL Routine 12/11/2004 5:30 AM CDT ICTOTEST Routine 12/11/2004 3:15 AM CDT URINALYSIS MICROSCOPY ONLY Routine 12/11/2004 3:15 AM CDT KETONE, QUALITATIVE, URINE Routine 12/11/2004 3:15 AM CDT URINALYSIS W/REFLEX MICROSCOPIC Routine 12/11/2004 3:15 AM CDT documented in this encounter Results * (ABNORMAL) CBC WITH DIFFERENTIAL (12/11/2004 5:30 AM CDT) WBC 4.7 4.5 - 11.0 K/ul INTERFACE SYSTEM RBC 4.61 4.20 - 5.40 Mil/ul INTERFACE SYSTEM HEMOGLOBIN 12.3 12.0 - 16.0 g/dL INTERFACE SYSTEM HEMATOCRIT 38.5 36.0 - 46.0 % INTERFACE SYSTEM MCV 83.5(L) 84.0 - 103.0 Fl INTERFACE SYSTEM MCH 26.7(L) 27.0 - 34.0 pg INTERFACE SYSTEM MCHC 31.9 30.0 - 35.0 g/dL INTERFACE SYSTEM RDW 13.8 11.0 - 14.5 % INTERFACE SYSTEM PLATELETS 207 140 - 440 K/ul INTERFACE SYSTEM MPV 11.5 8.9 - 12.8 Fl INTERFACE SYSTEM NEUTROPHILS 46.4 42.2 - 75.2 % INTERFACE SYSTEM LYMPHOCYTES 34.6 24.0 - 44.0 % INTERFACE SYSTEM MONOCYTES 14.9(H) 2.0 - 10.0 % INTERFACE SYSTEM EOSINOPHILS 3.0 0.0 - 7.0 % INTERFACE SYSTEM BASOPHILS 1.1(H) 0.0 - 1.0 % INTERFACE SYSTEM NEUTROPHIL ABSOLUTE 2.2 2.0 - 8.0 K/uL INTERFACE SYSTEM LYMPHOCYTE ABSOLUTE 1.6 1.2 - 4.0 K/ul INTERFACE SYSTEM MONOCYTE ABSOLUTE 0.7(H) 0.1 - 0.6 K/ul INTERFACE SYSTEM EOSINOPHIL ABSOLUTE 0.1 0.0 - 0.7 K/ul INTERFACE SYSTEM BASOPHILS ABSOLUTE 0.1 0.0 - 0.2 K/ul INTERFACE SYSTEM 12/11/2004 5:30 AM CDT us Heriberto Jacobs DO HEMATOLOGY ORDERABLES Hansa l Result INTERFACE SYSTEM Refer to clinic/hospital department * COMPREHENSIVE METABOLIC PANEL (12/11/2004 5:30 AM CDT) GLUCOSE 84 70 - 110 mg/dL INTERFACE SYSTEM BUN 13 7 - 17 mg/dL INTERFACE SYSTEM CREATININE 0.8 0.7 - 1.2 mg/dL INTERFACE SYSTEM SODIUM 141 136 - 145 mEq/L INTERFACE SYSTEM POTASSIUM 3.5 3.5 - 5.0 mEq/L INTERFACE SYSTEM CO2 25 22 - 32 mmol/l INTERFACE SYSTEM CHLORIDE 106 95 - 110 mEq/L INTERFACE SYSTEM CALCIUM 8.7 8.4 - 10.5 mg/dL INTERFACE SYSTEM ALKALINE PHOSPHATASE 71 38 - 126 IU/L INTERFACE SYSTEM TOTAL PROTEIN 7.0 6.3 - 8.2 g/dL INTERFACE SYSTEM ALBUMIN 3.5 3.5 - 5.0 g/dL INTERFACE SYSTEM AST 18 14 - 36 IU/L INTERFACE SYSTEM ALT 26 9 - 52 IU/L INTERFACE SYSTEM BILIRUBIN TOTAL 0.9 0.2 - 1.4 mg/dL INTERFACE SYSTEM GLOBULIN (CALC) 3.5 2.4 - 3.9 g/dL INTERFACE SYSTEM ANION GAP 14 9 - 20 mEq/L INTERFACE SYSTEM ALBUMIN/GLOBULIN RATIO 1.0 1.0 - 2.3 INTERFACE SYSTEM OSMOLALITY, CALCULATED 288 275 - 295 mOsm/Kg INTERFACE SYSTEM 12/11/2004 5:30 AM CDT Heriberto Jacobs DO CHEMISTRY ORDERABLES Final Result Performing Organization Address [facility] Phone Number INTERFACE SYSTEM Refer to clinic/hospital department * LIPASE (12/11/2004 5:30 AM CDT) LIPASE 80 23 - 300 IU/L INTERFACE SYSTEM 12/11/2004 5:30 AM CDT Heriberto Jacobs DO CHEMISTRY ORDERABLES Final Result Performing Organization Address [facility] Phone Number INTERFACE SYSTEM Refer to clinic/hospital department * AMYLASE (12/11/2004 5:30 AM CDT) AMYLASE 32 30 - 120 IU/L INTERFACE SYSTEM 12/11/2004 5:30 AM CDT us Heriberto Jacobs DO CHEMISTRY ORDERABLES Final Result Performing Organization Address [facility] Phone Number INTERFACE SYSTEM Refer to clinic/hospital department * (ABNORMAL) URINALYSIS (12/11/2004 3:15 AM CDT) COLOR UA Claire(A) Straw INTERFACE SYSTEM CLARITY UA Clear Clear INTERFACE SYSTEM LEUKOCYTE ESTERASE UA NEGATIVE NEGATIVE INTERFACE SYSTEM NITRITE UA NEGATIVE NEGATIVE INTERFACE SYSTEM PH UA 5.5 5.0 - 9.0 INTERFACE SYSTEM PROTEIN UA NEGATIVE NEGATIVE INTERFACE SYSTEM Comment: As of 04 positive protein results obtained on routine urinalysis will not be confirmed by sulfosalicylic acid (SSA) precipitation. Current methodology for protein detection is highly sensitive for detection of albumin; therefore, confirmation is not necessary. GLUCOSE UA NEGATIVE NEGATIVE INTERFACE SYSTEM UROBILINOGEN UA 0.2 INTE RFACE SYSTEM BLOOD UA NEGATIVE NEGATIVE INTERFACE SYSTEM SPECIFIC GRAVITY UA 1.025 1.005 - 1.030 INTERFACE SYSTEM MICRO EXAM Yes(A) No INTERFACE SYSTEM 12/11/2004 3:15 AM CDT us Heriberto Jacobs DO URINE ORDERABLES Final Res ult Performing Organization Address [facility] Phone Number INTERFACE SYSTEM Refer to clinic/hospital department * ICTOTEST (12/11/2004 3:15 AM CDT) ICTO Negative Negative INTERFACE SYSTEM 12/11/2004 3:15 AM CDT us Heriberto Lepes DO URINE ORDERABLES Final Res ult Performing Organization Address [facility] Phone Number INTERFACE SYSTEM Refer to clinic/hospital department * ACETONE QUALITATIVE, URINE (12/11/2004 3:15 AM CDT) KETONES UA Negative Negative INTERFACE SYSTEM 12/11/2004 3:15 AM CDT us Heriberto [place] Jacobs DO URINE ORDERABLES Final Res ult Performing Organization Address [facility] Phone Number INTERFACE SYSTEM Refer to clinic/hospital department * URINALYSIS MICROSCOPY ONLY (12/11/2004 3:15 AM CDT) WBC URINE None Seen 0 - 2 INTERFACE SYSTEM RBC UA None Seen 0 - 2 INTERFACE SYSTEM HYALINE CAST None Seen 0 - 2 INTERFA CE SYSTEM BACTERIA UA None Seen None Seen INTERFAC E SYSTEM 12/11/2004 3:15 AM CDT Heriberto Jacobs DO URINE ORDERABLES Final Res ult INTERFACE SYSTEM Refer to clinic/hospital department documented in this encounter Visit Diagnoses Diagnosis Abdominal pain, unspecified site- Primary documented in this encounter
--- OUTSIDE RECORDS SUMMARY | 2024-11-23 02:50 | XMS_ITS | Clinical Summary ---
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
== END 2024-11-21 18:58 | disposition home or self-care (01) ==
PROVIDERS: Emergency Provider Physician Assistant; PCP Nurse Practitioner Family
DX: F43.9 Reaction to severe stress, unspecified (principal); F41.9 Anxiety disorder, unspecified
CPT/HCPCS: 93005; 96372; 99284; J2060; J9999

== ENCOUNTER 2024-12-17 21:22 | Emergency (ER) | payer SELFPAY ==
[2024-12-17 21:27] VITALS: BP 173/99; PULSE 102; RESP 20; TEMP 36.6; O2SAT 97; BMI 71.7
--- OUTSIDE RECORDS SUMMARY | 2024-12-17 21:28 | XMS_ITS | Encounter Summary ---
Author Organization [facility] Address [address] [place] [address] Care Team Providers Care Bag Adjuster Name Role Phone Unavailable Primary Care Provider Unavailabl e Encounter Details Date Type Department Care Team (Late st Contact Info) Description 12/10/2004 Emergency [facility] Emergency Department [address] 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 Phone Number INTERFACE SYSTEM Refer to clinic/hospital department * LIPASE (12/11/2004 5:30 AM CDT) LIPASE 80 23 - 300 IU/L INTERFACE SYSTEM 12/11/2004 5:30 AM CDT Heriberto Jacobs DO CHEMISTRY ORDERABLES Final Result Performing Organization Address [facility] Phone Number INTERFACE SYSTEM Refer to clinic/hospital department * AMYLASE (12/11/2004 5:30 AM CDT) AMYLASE 32 30 - 120 IU/L INTERFACE SYSTEM 12/11/2004 5:30 AM CDT us Heriberto Jacobs DO CHEMISTRY ORDERABLES Final Result Performing Organization Address [facility] Phone Number INTERFACE SYSTEM Refer to clinic/hospital [...] ORDERABLES Final Res ult Performing Organization Address [facility] Phone Number INTERFACE SYSTEM Refer to clinic/hospital department * ICTOTEST (12/11/2004 3:15 AM CDT) ICTO Negative Negative INTERFACE SYSTEM 12/11/2004 3:15 AM CDT us Heriberto Lepes DO URINE ORDERABLES Final Res ult Performing Organization Address [facility] Phone Number INTERFACE SYSTEM Refer to clinic/hospital department * ACETONE QUALITATIVE, URINE (12/11/2004 3:15 AM CDT) KETONES UA Negative Negative INTERFACE SYSTEM 12/11/2004 3:15 AM CDT us Heriberto [place] Jacobs DO URINE ORDERABLES Final Res ult Performing Organization Address [facility] Phone Number INTERFACE SYSTEM Refer to clinic/hospital [...]
--- OUTSIDE RECORDS SUMMARY | 2024-12-17 21:28 | XMS_ITS | Clinical Summary ---
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
--- NOTE | 2024-12-17 21:55 | ED_ITS ---
HPI - Anxiety General: Chief Complaint: Anxiety Stated Complaint: Withdrawl from Mental Health Drugs Time Seen by Provider: 12/17/24 21:51 History of Present Illness: 43-year-old female with a history of dep ression and obesity who presents to the emergency room with anxiety issues. She went off of her depression medication about 20 days ago and has been having issues with anxiety since then. She has followed with her primary weekly. She has an appointment tomorrow. She just felt completely panicked tonight and so she came to the emergency room. She denies any homicidal or suicidal ideations and ultimately we agree that trying to treat her anxiety acutely tonight and get her to her primary provider tomorrow to discuss lab work that had been done there seems to be the best route. Related Data Home Medications ?Medication ?Instructions ?Recorded ?Confirmed paroxetine HCl 20 mg tablet 20 mg PO DAILY 05/19/23 Previous Rx's ?Medication ?Instructions ?Recorded norethindrone acetate 5 mg tablet 5 mg PO DAILY #84 ta bs 02/18/23 levothyroxine 25 mcg tablet See Rx Instructions .Route 03/26/24 .COMPLEX #90 tabs olanzapine 5 mg tablet (Zyprexa) 5 mg PO QPM #10 tabs 11/21/24 Allergies Allergy/AdvReac Type Severity Reaction Status Date / Time sulfamethoxazole (From Allergy ALGY-Rash Verified 12/17/24 21:34 Bactrim) trimethoprim (From Bactrim) Allergy ALGY-Rash Verified 12/17/24 21:34 bupropion (From Wellbutrin) AdvReac ADR-Anxiety Verified 12/17/24 21:34 Review of Systems Narrative: Constitutional symptoms: Negative except as documented in HPI. Skin symptoms: Negative except as documented in HPI. Eye symptoms: Negative except as documented in HPI. ENMT symptoms: Negative except as documented in HPI. Respiratory symptoms: Negative except as documented in HPI. Cardiovascular symptoms: Negative except as documented in HPI. Gastrointestinal symptoms: Negative except as documented in HPI. Genitourinary symptoms: Negative except as documented in HPI. Musculoskeletal symptoms: Negative except as documented in HPI. Neurologic symptoms: Negative except as documented in HPI. Psychiatric symptoms: Negative except as documented in HPI. Endocrine symptoms: Negative except as documented in HPI. PFS ED PFSH: Medical History (Updated 12/17/24 @ 21:56 by Carolina Zimmerman MD) SVT (supraventricular tachycardia) Immunization counseling High risk medication use Rheumatoid arthritis with rheumatoid factor No pertinent past medical history neg hx: htn,dm,thyroid,dvt/pe Depression Anxiety Surgical History S/P tonsillectomy H/O foot surgery (~1991) left-- fracture in growth plate Previous section (~2010) S/P cholecystectomy (~01/2019) Family History Grandmother Diabetes Hypertension Hyperlipidemia Stroke Paternal grandmother Heart disease Maternal grandmother Uterine cancer, Onset Age: 50 MGM Grandfather Diabetes Hypertension Hyperlipidemia Stroke Paternal grandfather Heart disease Paternal grandfather Maternal grandfather Father Diabetes Brother Diabetes Family/Other Diabetes Maternal aunt Breast cancer Paternal Cousin--dx'd in her early 30s Mother Hypertension Heart disease Family history of thyroid problem Other CAD (coronary artery disease) Rheumatoid arthritis Denies family history of Colon cancer Ovarian cancer Lupus Chronic kidney disease (CKD) Lung disease Cancer Social History Smoking and tobacco/nicotine status: never used tobacco/nicotine Substance/Drug Use: never Additional social history: - Tobacco use: Denies Alcohol use: Denies Drug use: Denies Do you think of yourself as: Straight/Heterosexual Current gender identity: Female Physical Exam Narrative: EXAM NARRATIVE: General: Alert, no acute distress. Skin: Warm, dry. Head: Normocephalic, atraumatic. Neck: Supple, trachea midline. Eye: Extraocular movements are intact. Ears, nose, mouth and throat: mucosa moist. Cardiovascular: Regular, Normal peripheral perfusion. Respiratory: Lungs are clear to auscultation, respirations are non-labored, breath sounds are equal, Symmetrical chest wall expansion. Gastrointestinal: Soft, Nontender, Non distended Musculoskeletal: Normal ROM, no deformity. Neurological: Alert and oriented, No focal neurological deficit observed. Psychiatric: Cooperative, patient does appear quite anxious and a bit tachypn eic. She is tearful at times. Course Vital Signs: Vital signs: Vital Signs Temperature 97.8 F 12/17/24 21:27 Pulse Rate 102 H 12/17/24 21:27 Respiratory Rate 20 H 08/25/25 21:27 Blood Pressure 173/99 12/17/24 21:27 Pulse Oximetry 97 12/17/24 21:27 Oxygen Delivery Me thod Room Air 12/17/24 21:27 MDM - Anxiety Medical Decision Making Assessment and plan: Anxiety attack ?IM Ativan in the emergency room - Discharged home - Discussed plan with patient. Answered any questions. - Evaluation and treatment of this problem were appropriate in the emergency setting. No radiology studies performed this visit Discharge Plan Discharge Patient Disposition: Home Clinical Impression: Anxiety attack Condition: Stable Prescriptions: No Action paroxetine HCl 20 mg tablet 20 mg PO DAILY norethindrone acetate 5 mg tablet 5 mg PO DAILY Qty: 84 3RF levothyroxine 25 mcg tablet See Rx Instructions .ROUTE .COMPLEX Qty: 90 0RF Dose Instruction: Take 1 tablet by mouth once daily Rx Instructions: Take 1 tablet by mouth once daily olanzapine [Zyprexa] 5 mg tablet 5 mg PO QPM Qty: 10 0RF Discharge Orders: Discharge ED (Routine); Ordered 12/17/24 Ordered By: Carolina Zimmerman Referrals: Shannon Beal FNP [Primary Care Provider, Unknown] Discharge Diet: Usual diet Discharge Activity: Increase activity as tolerated Patient Instructions: Opioid Safety, Pain Management, Patient Portal & Carolyn Instructions Activity Restrictions/Additional Instructions: Please follow-up with the [facility] behavioral health crisis center tomorrow or the next day if you do not find improvement with your primary care provider tomorrow. Please do not miss your primary provider's appointment.. Phone number is [phone]. There is a 24-hour crisis hotline with the number of [phone]. Hours of operation are 8 AM to 6 PM. If you develop any suicidal thoughts or homicidal thoughts please return immediately to the emergency room. Thank you for choosing [facility] for your healthcare needs today. Please realize this is an emergency room and that we are providing you with a medical screening exam and this may not be complete and all inclusive of all the testing and or work up that you may need to determine your ailment or severity of your illness. You have been screened and evaluated and felt safe for discharge. Health conditions do change or evolve sometimes and as such it is important that you follow up with your Primary Doctor to be re checked, 3-5 days is a general good time frame for follow up. You are always welcome to return to the ED for re assessment if your symptoms are worsening or you have new concerns Print Language: Kinyarwanda Coding Level of Care Code ED Senior Research Scientist for Inga Estevez
[2024-12-17] MEDS: LORazepam 1 MG/0.5 ML injection 2 MG IM (22:14)
== END 2024-12-17 22:31 | disposition home or self-care (01) ==
PROVIDERS: Emergency Provider Emergency Medicine; PCP Nurse Practitioner Family
DX: F41.9 Anxiety disorder, unspecified (principal)
CPT/HCPCS: 96372; 99284; J2060

== ENCOUNTER 2024-12-20 14:45 | Emergency (ER) | payer SELFPAY ==
[2024-12-20 14:48] VITALS: BP 140/105; PULSE 86; RESP 18; TEMP 36.7; O2SAT 94; BMI 71.7
--- OUTSIDE RECORDS SUMMARY | 2024-12-20 14:59 | XMS_ITS | Encounter Summary ---
Author Organization [facility] Address [address] [place] [address] Care Team Providers Care Racquet Maker Name Role Phone Unavailable Primary Care Provider Unavailabl e Encounter Details Date Type Department Care Team (Late st Contact Info) Description 12/10/2004 Emergency [facility] Emergency Department [address] 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 Gender Identity Not on file Sexual Orientation [...] CHEMISTRY ORDERABLES Final Result Performing Organization Address [facility] Phone Number INTERFACE SYSTEM Refer to clinic/hospital department * LIPASE (12/11/2004 5:30 AM CDT) LIPASE 80 23 - 300 IU/L INTERFACE SYSTEM 12/11/2004 5:30 AM CDT Heriberto Jacobs DO CHEMISTRY ORDERABLES Final Result Performing Organization Address [facility] Phone Number INTERFACE SYSTEM Refer to clinic/hospital department * AMYLASE (12/11/2004 5:30 AM CDT) AMYLASE 32 30 - 120 IU/L INTERFACE SYSTEM 12/11/2004 5:30 AM CDT us Heriberto Jacobs DO CHEMISTRY ORDERABLES Final Result Performing Organization Address [facility] Phone Number INTERFACE SYSTEM Refer to [...] ORDERABLES Final Res ult Performing Organization Address [facility] Phone Number INTERFACE SYSTEM Refer to clinic/hospital department * ICTOTEST (12/11/2004 3:15 AM CDT) ICTO Negative Negative INTERFACE SYSTEM 12/11/2004 3:15 AM CDT us Heriberto Lepes DO URINE ORDERABLES Final Res ult Performing Organization Address [facility] Phone Number INTERFACE SYSTEM Refer to clinic/hospital department * ACETONE QUALITATIVE, URINE (12/11/2004 3:15 AM CDT) KETONES UA Negative Negative INTERFACE SYSTEM 12/11/2004 3:15 AM CDT us Heriberto [place] Jacobs DO URINE ORDERABLES Final Res ult Performing Organization Address [facility] Phone Number INTERFACE SYSTEM Refer to [...]
--- OUTSIDE RECORDS SUMMARY | 2024-12-20 14:59 | XMS_ITS | Clinical Summary ---
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
--- NOTE | 2024-12-20 15:45 | ECG_ITS ---
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 Measurements Intervals [place] Rate: 81 P: 56 [place]: 147 QRS: 13 QRSD: 102 T: 31 QT: 399 QTc: 464 Interpretive Statements SINUS RHYTHM NONSPECIFIC T-WAVE ABNORMALITY Compared to ECG 11/21/2024 17:42:16 No significant changes Electronically Signed On 12-21-2024 22:40:58 CDT by Serafin Godoy M.D. [email or web address]
--- NOTE | 2024-12-20 15:45 | XR_ITS ---
WS: [id number] Exam: XR chest 1V portable [id number] Date/Time of Exam: 12/20/2024 3:46 PM Reason For Exam: CP/SOB Comparison 10/23/2021. Findings: The lungs are clear and fully expanded. Costophrenic angles are sharp. No infiltrates. Bronchovascular relief appears normal. Cardiac silhouette is unremarkable. Bony elements are intact. XR/XR chest 1V portable [id number] IMPRESSION: Unremarkable chest radiograph.
[2024-12-20] MEDS: LORazepam 1 MG/0.5 ML injection 2 MG IM (16:04)
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
[2024-12-20 16:25] LABS: Hematocrit 38.2 % (36-47); Hemoglobin 12.00 g/dL (11.27-16.99); Mean Corpuscular HGB Conc 31.4 g/dL (30-55); Mean Corpuscular Hemoglobin 26.8 pg (27-33); Mean Corpuscular Volume 85.3 fl (85-98); Nucleated Red Blood Cells % 0 %; Platelet Count 270 10^3/cmm (157-399); Red Blood Count 4.48 10^6/uL (3.85-5.65); White Blood Count 9.89 10^3/uL (3.29-11.43)
[2024-12-20 16:42] LABS: Troponin(5th) Baseline < 6 ng/L (0-10)
[2024-12-20 16:50] VITALS: BP 159/106; PULSE 81; RESP 22; O2SAT 96
[2024-12-20 16:53] LABS: Alanine Aminotransferase 156 U/L (0-33); Albumin Level 4.3 g/dL (3.5-5.2); Alkaline Phosphatase 114 U/L (35-105); Anion Gap 18.5 (5-19); Aspartate Amino Transferase 164 U/L (0-32); Blood Urea Nitrogen 12 mg/dL (6-20); Calcium 9.4 mg/dL (8.5-10.5); Carbon Dioxide 26 mmol/L (22-29); Chloride 98 mmol/L (98-107); Creatinine Clr Calc Pharmacy 159.2322; Globulin 2.8 g/dL (1.3-4.6); Glucose 131 mg/dL (65-115); Osmolality Calculated 290 mOsm/kg (285-295); Potassium 3.5 mmol/L (3.5-5.1); Sodium 139 mmol/L (136-145); Thyroid Stimulating Hormone 2.37 uIU/mL (0.27-4.20); Total Protein 7.1 g/dL (6.6-8.7)
[2024-12-20 18:00] VITALS: BP 182/117; PULSE 86; O2SAT 97
[2024-12-20 19:01] VITALS: BP 148/115; PULSE 87; RESP 16; O2SAT 96
--- NOTE | 2024-12-21 11:39 | PC.NURSE ---
Referral sent to [facility]
== END 2024-12-20 19:01 | disposition home or self-care (01) ==
PROVIDERS: Emergency Provider Physician Assistant; PCP Nurse Practitioner Family
DX: F41.8 Other specified anxiety disorders (principal); R74.01 Elevation of levels of liver transaminase levels
CPT/HCPCS: 36415; 71045; 80053; 84443; 84484; 85025; 93005; 96372; 99285; J2060

== ENCOUNTER 2025-01-24 23:31 | Emergency (ER) | payer BC, MEDICAID, SELFPAY ==
[2025-01-24 23:39] VITALS: BP 169/96; PULSE 85; RESP 22; TEMP 36.8; O2SAT 99; BMI 71.7
--- OUTSIDE RECORDS SUMMARY | 2025-01-24 23:40 | XMS_ITS | Data Portability ---
Author Organization [facility] Toni, Kassandra, [facility] Address [address] [facility] [address] [place] [address] Assessment Encounter Date Assessment Date Assessment LastModified by Organization Details LastModified Time 11/27/2024 11/27/2024 Patient here for a follow-up from the ER. Overall she is feeling better. She still feels like she is in a haze. She would like to try the Wellbutrin again at a lower dose. She is down to a 1/4 of a tablet of paroxetine. Not available 11/30/2024 15:17:59 12/04/2024 12/04/2024 She is doing better since being off of the paroxetine. She has been able to get out more with her kids. 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 Not available 12/04/2024 16:19:29 12/18/2024 12/18/2024 Patient here today to discuss labs. She has a printout of the ones that are back at this time. Reviewed with patient. Will check in to them further once they all return. She continues to be anxious. Lorazepam was helpful when she was in the ER. She will continue on the buspirone and will use the lorazepam as needed. She does feel like she has more energy after stopping the paroxetine. Not available 2024 10:32:12 01/07/2025 01/07/2025 Patient reports she is doing some better. She has insurance now and would like to get in to see a therapist. Patient reports she is still struggling with anxiety some but seems like she is more lively than she was when we originally discontinued the paroxetine. Sundays seem to be harder for her. She has the lorazepam that she has taken 5 of since she filled them. She will get some Flinstone vitamins. Not available 01/07/2025 15:22:57 Plan of Treatment Reminders Order Date Submit Date Provider Last Modified By Organization Details Last Modified Time Details Appointments RECHECK 2024 01:00P Axel CORONEL, FIBERGLASS LAMINATOR Not available Not available Not available Lab estroge n, total, serum 2024 025 [id number] [facility], [address] [place] [address], [address], [place] Sepulved[place], [address], 12/18/2024 09:33:05 progest erone, serum 2024 025 [id number] [facility], [address] [place] [address], [facility] [address], [place] Sepulved[place], [address], 12/18/2024 09:33:05 testost erone, total, serum 2024 025 [id number] [facility], [address] [place] [address], [address], LILLIANA Sepulved[place], [address], 12/18/2024 09:33:05 lh (lutein izing hormone ), serum 2024 025 [id number] [facility], [address] [place] [address], [address], [place] Sepulved[place], [address], 12/18/2024 09:33:05 FSH (follic le-stim ulating hormone ), serum 2024 025 [id number] [facility], [address] [place] [address], [address], LILL[place] Sepulved[place], [address], 12/18/2024 09:33:05 dhea-dang lfate, serum 2024 025 [id number] [facility], [address] [place] [address], [address], LILL[place]NA Sepulved[place], [address], 12/18/2024 09:33:05 prolact in, serum 2024 025 [id number] [facility], [address] [place] [address], [address], L[place] Sepulved[place], [address], 12/18/2024 09:33:05 T4, free, serum 2024 025 [id number] [facility], [address] [place] [address], [address], [place] Sepulved[place], [address], 12/18/2024 09:33:05 T3, free, serum or plasma 2024 025 [id number] [facility], [address] [place] [address], [facility] [address], [place]ved[place], [address], 12/18/2024 09:33:05 thyroid peroxid ase (tpo) Ab, serum 2024 025 [id number] [facility], [address] [place] [address], [address], [place]ul[place], [address], 12/18/2024 09:33:05 estradi ol, serum 2024 025 [id number] [facility], [address] [place] [address], [address], [place], [address], 12/18/2024 09:33:06 pro BNP (pro B-type natriur etic peptide ), serum or plasma 2024 025 [id number] [facility], [address] [place] [address], [address], [place], [address], 12/11/2024 09:27:00 CMP, serum or plasma 2024 025 [id number] [facility], [address] [place] [address], [address], [place], [address], 12/11/2024 09:26:59 lipid panel, blood 2024 025 [id number] [facility], [address] [place] [address], [address], [place], [address], 12/11/2024 09:26:59 CBC 2024 025 [id number] [facility], [address] [place] [address], [address], [place], [address], 12/11/2024 09:26:59 unliste d lab - micronu trients , antioxi dants panel 2024 025 [id number] [facility], [address] [place] [address], [address], [place], [address], 12/11/2024 09:26:59 unliste d lab - micronu trients , B-vitam in panel 2024 025 [id number] [facility], [address] [place] [address], [address], [place], [address], 12/11/2024 09:26:59 unliste d lab - micronu trients , mineral /elemen t panel 2024 025 [id number] [facility], [address] [place] [address], [address], [place], [address], 12/11/2024 09:27:00 thyrotr opin, QN, serum or plasma 2024 025 [id number] [facility], [address] [place] [address], [address], [place], [address], 12/11/2024 09:27:00 vitamin D, 25-hydr oxy, total, serum 2024 025 [id number] [facility], [address], [place], [address], 12/11/2024 09:27:00 Referral mental health pet adoption counselor or referra l 2024 025 [email or web address] [facility], [facility] [address], [place], [address], 01/21/2025 11:51:46 endocri nology referra l 2024 025 [email or web address] Khadijah Wagner MD, [address] [place], [address], 01/22/2025 10:33:59 Procedures None recorde d. Surgeries None recorde d. Imaging home sleep study 2024 025 [facility], [address] [place], [address], 01/09/2025 13:44:17 US, liver 2024 025 asurface [facility], [address] [place] [address], [address], 01/21/2025 09:12:58 Medication Orders lorazep am 1 mg tablet 2024 025 [facility], [address] [address], [place], [address], 12/18/2024 13:21:48 levothy roxine 25 mcg tablet 2024 025 [facility], [address] [address], [place], [address], 12/18/2024 12:42:02 hydroch lorothi azide 25 mg tablet 2024 025 [facility], [address], [place], [address], 12/04/2024 16:19:41 buspiro ne 5 mg tablet 2024 025 [facility] 15, [address], [place], [address], 01/01/2025 09:23:22 bupropi on HCl 75 mg tablet 2024 025 [email or web address], [address], [place], [address], 12/04/2024 16:28:07 Patient TargetsNo targets recorded. Patient Instructions Encounter Date Encounter Id Patient Instructions Last Modified By Organization Details Last Modified Time 11/27/2024 [id number] Call or return for questions or concerns. Not available 11/27/2024 16:08:52 12/04/2024 [id number] Call or return for questions or concerns. Not available 12/04/2024 16:08:54 12/18/2024 [id number] Call or return for questions or concerns. Not available 2024 10:31:30 01/07/2025 [id number] Call or return for questions or concerns. Not available 01/07/2025 15:18:12 Reason for Referral Endocrinology Referral for A cquired hypothyroidism Referring Physician: Cee Coronel, Family Medicine, Encounter Date: 12/18/2024 Mental Health Counselor Refe rral for Mixed anxiety and depressive disorder Referring Physician: Cee Coronel Family [facility], Encounter Date: 01/07/2025 Results Created Date Observation Date Name Description Value Unit Range Abnormal Flag Note LastModifiedBy Organization Detail LastModifiedTime 12/12/1912/19/2024 MICRO NUTRI ENTS, ANTIO XIDAN TS PANEL coenzyme Q10(coq10) 0.86 ug/mL >0.35 This test was devel oped and its mis tical perfo rmanc e lakisha cteri stics have been deter mined by Jessica herrera Doris larry at [facility] [place] [facility]. It has not been clear ed or appro libia by the U.S. Food and Drug Admin istra tion. This assay has been valid ated pursu ant to the CLIA regul ation s and is used for clini orville purpo ses. Ellyromainez yme Q10 is a small compo nent of the elect zeferino trans port chain , which creat es energ y. It is also invol libia in antio xidan t pathw ays, inclu ding the regen erati on of the prote ctive funct ions of Vitam in E. CoQ10 may inter act with the antic oagul ant (bloo d thinn er) warfa rin and the diabe edson drug insul in, and it may not be madhav tible with some types of cance r treat ment. For more infor celeste gavin, visit https ://ww w.[facility] ih.ni h.gov /heal th/co enzym e-q10 /. Not Available [employer] [facility] [address] [place], [address], 12/19/2024 10:11:32 12/12/19 25 12/19/2024 MICRO NUTRI ENTS, ANTIO XIDAN TS PANEL vitamin A (retinol) 19 mcg/d L 38-98 low Vitam in A is criti orville for enedinaio n, growt h, and many cell funct ions. High level s of Vitam in A are assoc iated with bone fract ures, and is also seen with renal failu re, but is not assoc iated with toxic ity from exces sive inges tion. Low jose ntrat ions of Vitam in A are consi stent with fat malab sorpt ion and are rarel y due to inade quate diet. For more infor celeste gavin, visit https ://od s.od. nih.g ov/fa ctshe ets/V itami nA-He althP rofes siona l/ This test was devel oped and its mis tical perfo rmanc e lakisha cteri stics have been deter mined by [facility], [place], [place]. It has not been clear ed or appro libia by the FDA. This assay has been valid ated pursu ant to the CLIA regul ation s and is used for clini orville purpo ses. Not Available [facility] [address] [place], [address], 12/19/2024 10:11:32 12/12/1912/19/2024 MICRO NUTRI ENTS, ANTIO XIDAN TS PANEL vitamin C 0.3 mg/dL 0.3-2. 7 Vitam in C is an antio xidan t invol libia in conne ctive tissu e metab olism , drug- metab olizi ng syste ms, and to regen erate other antio xidan ts. Clini orville vitam in C defic iency cause s scurv y; manif estat ions inclu de impai red forma tion of matur e conne ctive tissu e, bleed ing into the skin, weakn ess, fatig ue, and depre ssion . For more infor celeste gavin, visit https ://od s.od. nih.g ov/fa ctshe ets/V itami NJ-He althP dannfes libby l/ This test was devel oped and its mis tical perfo rmanc e lakisha cteri stics have been deter mined by [facility] [place] It has not been clear ed or appro libia by the FDA. This assay has been valid ated pursu ant to the CLIA regul ation s and is used for clini orville purpo ses. Not Available [facility] [address] [place], [address], 12/19/2024 10:11:32 12/12/1912/19/2024 MICRO NUTRI ENTS, ANTIO XIDAN TS PANEL vitamin E, alpha tocopherol 17.4 mg/L 5.7-19 .9 Not Available [facility] [address] [place], [address], 12/19/2024 10:11:32 08/19/20 25 12/19/2024 MICRO NUTRI ENTS, ANTIO XIDAN TS PANEL vitamin E, beta gamma tocopherol 2.6 mg/L <4.4 Vitam in E is used as an antio xidan t and influ ences immun e funct ion. It helps to prote ct cell membr anes from damag ing oxida tive stres s. A clini orville defic iency of vitam in E may cause motor and senso ry neuro naima in adult s. One likel y cause of vitam in E defic iency is intes tinal malab sorpt ion, resul ting from bowel disea se, pancr eatic disea se, or chron ic jose stasi s. Other cause s of malab sorpt ion of vitam in E inclu de yamileth c disea se, cysti c fibro sis, and intes tinal lymph georges ctasi a. For more infor celeste gavin, visit https ://od s.od. nih.g ov/fa ctshe ets/V itami nE-He althP rofes siona l/ This test was devel oped and its mis tical perfo rmanc e lakisha cteri stics have been deter mined by [facility] Brizuela liborio, [place], [place]. It has not been clear ed or appro libia by the FDA. This assay has been valid ated pursu ant to the CLIA regul ation s and is used for clini orville purpo ses. Not Available [employer] [place] [address] [place], [address], 12/19/2024 10:11:32 12/12/19 25 12/19/2024 LIPID PANEL , STAND YAMEL cholesterol, total 176 mg/dL <200 normal Not Available [employer] [place] [address] [place], [address], 12/19/2024 10:11:33 12/12/19 25 12/19/2024 LIPID PANEL , STAND YAMEL HDL cholesterol 52 mg/dL > or = 50 normal Not Available [employer] [facility] [address] [place], [address], 12/19/2024 10:11:33 12/12/1912/19/2024 LIPID PANEL , STAND YAMEL triglyceride s 136 mg/dL <150 normal Not Available [facility] [address] [place], [address], 12/19/2024 10:11:33 12/12/1912/19/2024 LIPID PANEL , STAND YAMEL LDL-choleste rol 101 mg/dL _(orville c) high Refer ence range : <100 Janice able range <100 mg/dL for prima ry preve ntion ; <70 mg/dL for patie nts with CHD or diabe tic patie nts with > or = 2 CHD risk facto rs. LDL-C is now calcu lated using the Colette n-Hop kins calcu corrina n, which is a valid ated novel metho d provi mandeep alexander r accur acy than the Fried carmen equat ion in the estim ation of LDL-C . Colette gavin SS et al. FLEX. 2013; 310(1 9): 2061- 2068 (http ://ed ucati on.Qu estKosmix. com/f aq/FA Q164) Not Available [facility] [address] [place] [address], [place], [address], 12/19/2024 10:11:33 12/12/19 25 12/19/2024 LIPID PANEL , STAND YAMEL chol/HDLC ratio 3.4 (calc ) <5.0 normal Not Available [facility] [address] [place], [address], 12/19/2024 10:11:33 12/12/1912/19/2024 LIPID PANEL , STAND YAMEL non HDL cholesterol 124 mg/dL _(orville c) <130 normal For patie nts with diabe edson plus 1 major ASCVD risk facto r, treat ing to a non-H DL-C goal of <100 mg/dL (LDL- C of <70 mg/dL ) is consi dered a thera peuti c optio n. Not Available [address], [address], 12/19/2024 10:11:33 12/12/1912/19/2024 IRON, TOTAL iron, total 44 mcg/d L 40-190 normal Not Available [address], [address], 12/19/2024 10:11:34 12/12/1912/19/2024 COMPR EHENS ZOFIA METAB OLIC PANEL glucose 110 mg/dL 65-99 high Fasti ng refer ence inter edward For someo ne witho ut known diabe edson, a gluco se value betwe en 100 and 125 mg/dL is consi stent with predi abete s and shoul d be confi rmed with a follo w-up test. Not Available [address], [address], 12/19/2024 10:11:34 12/12/1912/19/2024 COMPR EHENS ZOFIA METAB OLIC PANEL urea nitrogen (BUN) 10 mg/dL 7-25 normal Not Available [address], [address], 12/19/2024 10:11:34 12/12/1912/19/2024 COMPR EHENS ZOFIA METAB OLIC PANEL creatinine 0.67 mg/dL 0.50-0 .99 normal Not Available [address], [address], 12/19/2024 10:11:34 12/12/19 25 12/19/2024 COMPR EHENS ZOFIA METAB OLIC PANEL eGFR 110 mL/mi n/1.7 3m2 > or = 60 normal Not Available [address], [address], 12/19/2024 10:11:34 12/12/19 25 12/19/2024 COMPR EHENS ZOFIA METAB OLIC PANEL BUN/creatini ne ratio SEE NOTE: (calc ) 6-22 Not Repor trell: BUN and Creat inine are withi n refer ence range . Not Available [address], [address], 12/19/2024 10:11:34 12/12/19 25 12/19/2024 COMPR EHENS ZOFIA METAB OLIC PANEL sodium 138 mmol/ L 135-14 6 normal Not Available [address], [address], 12/19/2024 10:11:34 12/12/19 25 12/19/2024 COMPR EHENS ZOFIA METAB OLIC PANEL potassium 4.3 mmol/ L 3.5-5. 3 normal Not Available [address], [address], 12/19/2024 10:11:34 12/12/19 25 12/19/2024 COMPR EHENS ZOFIA METAB OLIC PANEL chloride 101 mmol/ L 98-110 normal Not Available [address], [address], 12/19/2024 10:11:34 12/12/19 25 12/19/2024 COMPR EHENS ZOFIA METAB OLIC PANEL carbon dioxide 28 mmol/ L 20-32 normal Not Available [address], [address], 12/19/2024 10:11:34 12/12/19 25 12/19/2024 COMPR EHENS ZOFIA METAB OLIC PANEL calcium 9.2 mg/dL 8.6-10 .2 normal Not Available [address], [address], 12/19/2024 10:11:34 12/12/19 25 12/19/2024 COMPR EHENS ZOFIA METAB OLIC PANEL protein, total 6.5 g/dL 6.1-8. 1 normal Not Available [address] [place], [address], 12/19/2024 10:11:34 12/12/19 25 12/19/2024 COMPR EHENS ZOFIA METAB OLIC PANEL albumin 3.9 g/dL 3.6-5. 1 normal Not Available [address], [address], 12/19/2024 10:11:34 12/12/19 25 12/19/2024 COMPR EHENS ZOFIA METAB OLIC PANEL globulin 2.6 g/dL_ (calc ) 1.9-3. 7 normal Not Available [address], [address], 12/19/2024 10:11:34 12/12/19 25 12/19/2024 COMPR EHENS ZOFIA METAB OLIC PANEL albumin/glob ulin ratio 1.5 (calc ) 1.0-2. 5 normal Not Available [address], [address], 12/19/2024 10:11:34 12/12/19 25 12/19/2024 COMPR EHENS ZOFIA METAB OLIC PANEL bilirubin, total 0.9 mg/dL 0.2-1. 2 normal Not Available [address], [address], 12/19/2024 10:11:34 12/12/19 25 12/19/2024 COMPR EHENS ZOFIA METAB OLIC PANEL alkaline phosphatase 94 U/L 31-125 normal Not Available [facility] [employer] [address], [address], 12/19/2024 10:11:34 12/12/19 25 12/19/2024 COMPR EHENS ZOFIA METAB OLIC PANEL AST 113 U/L 10-30 high Not Available [address], [address], 12/19/2024 10:11:34 12/12/1912/19/2024 COMPR EHENS ZOFIA METAB OLIC PANEL ALT 134 U/L 6-29 high Not Available [address], [address], 12/19/2024 10:11:34 12/12/19 25 12/19/2024 ESTRO GENS, TOTAL , IA estrogens, total, ia 252 pg/mL Refer ence Range s for Total Estro gen: Folli cular Phase : 51-60 1 Lutea l Phase : 87-11 94 Postm enopa usal: < or = 214 Not Available [address], [address], 12/19/2024 10:11:35 12/12/19 25 12/19/2024 CBC (INCL UDES DIFF/ PLT) white blood cell count 6.7 thous and/u L 3.8-10 .8 normal Not Available [address], [address], 12/19/2024 10:11:36 12/12/1912/19/2024 CBC (INCL UDES DIFF/ PLT) red blood cell count 4.44 emily on/uL 3.80-5 .10 normal Not Available [address], [address], 12/19/2024 10:11:36 12/12/1912/19/2024 CBC (INCL UDES DIFF/ PLT) hemoglobin 12.1 g/dL 11.7-1 5.5 normal Not Available [address], [address], 12/19/2024 10:11:36 12/12/19 25 12/19/2024 CBC (INCL UDES DIFF/ PLT) hematocrit 40.2 % 35.0-4 5.0 normal Not Available [address], [address], 12/19/2024 10:11:36 12/12/1912/19/2024 CBC (INCL UDES DIFF/ PLT) MCV 90.5 fL 80.0-1 00.0 normal Not Available [address], [address], 12/19/2024 10:11:36 12/12/1912/19/2024 CBC (INCL UDES DIFF/ PLT) MCH 27.3 pg 27.0-3 3.0 normal Not Available [address], [address], 12/19/2024 10:11:36 12/12/1912/19/2024 CBC (INCL UDES DIFF/ PLT) MCHC 30.1 g/dL 32.0-3 6.0 low For adult s, a sligh t decre ase in the calcu lated MCHC value (in the range of 30 to 32 g/dL) is most likel y not clini raul signi fican t; chad er, it shoul d be inter prete d with cauti on in corre latio n with other red cell autumn eters and the patie nt's clini orville condi tion. Not Available [address], [address], 12/19/2024 10:11:36 12/12/1912/19/2024 CBC (INCL UDES DIFF/ PLT) RDW 15.5 % 11.0-1 5.0 high Not Available [address], [address], 12/19/2024 10:11:36 12/12/1912/19/2024 CBC (INCL UDES DIFF/ PLT) platelet count 268 thous and/u L 140-40 0 normal Not Available [address], [address], 12/19/2024 10:11:36 12/12/1912/19/2024 CBC (INCL UDES DIFF/ PLT) MPV 11.5 fL 7.5-12 .5 normal Not Available [address], [address], 12/19/2024 10:11:36 12/12/19 25 12/19/2024 CBC (INCL UDES DIFF/ PLT) absolute neutrophils 4717 cells /uL 1500-7 800 normal Not Available [address], [address], 12/19/2024 10:11:36 12/12/19 25 12/19/2024 CBC (INCL UDES DIFF/ PLT) absolute lymphocytes 1407 cells /uL 850-39 00 normal Not Available [address], [address], 12/19/2024 10:11:36 12/12/19 25 12/19/2024 CBC (INCL UDES DIFF/ PLT) absolute monocytes 348 cells /uL 200-95 0 normal Not Available [address], [address], 12/19/2024 10:11:36 12/12/19 25 12/19/2024 CBC (INCL UDES DIFF/ PLT) absolute eosinophils 188 cells /uL 15-500 normal Not Available [address], [address], 12/19/2024 10:11:36 12/12/19 25 12/19/2024 CBC (INCL UDES DIFF/ PLT) absolute basophils 40 cells /uL 0-200 normal Not Available [address], [address], 12/19/2024 10:11:36 12/12/19 25 12/19/2024 CBC (INCL UDES DIFF/ PLT) neutrophils 70.4 % normal Not Available [address], [address], 12/19/2024 10:11:36 12/12/1912/19/2024 CBC (INCL UDES DIFF/ PLT) lymphocytes 21.0 % normal Not Available [address], [address], 12/19/2024 10:11:36 12/12/19 25 12/19/2024 CBC (INCL UDES DIFF/ PLT) monocytes 5.2 % normal Not Available [address], [address], 12/19/2024 10:11:36 12/12/1912/19/2024 CBC (INCL UDES DIFF/ PLT) eosinophils 2.8 % normal Not Available [address], [address], 12/19/2024 10:11:36 12/12/19 25 12/19/2024 CBC (INCL UDES DIFF/ PLT) basophils 0.6 % normal Not Available [address], [address], 12/19/2024 10:11:36 12/12/1912/19/2024 THYRO ID PEROX IDASE ANTIB ODIES thyroid peroxidase antibodies 1 IU/mL <9 Not Available [address], [address], 12/19/2024 10:11:36 12/12/1912/19/2024 DHEA SULFA TE DHEA sulfate 71 mcg/d L 15-205 normal Not Available [address], [address], 12/19/2024 10:11:37 12/12/1912/19/2024 FOLAT E, SERUM folate, serum 6.1 NG/mL normal Refer ence Range Low: <3.4 Borde rline : 3.4-5 .4 Azucena l: >5.4 Not Available [address], [address], 12/19/2024 10:11:38 12/12/19 25 12/19/2024 FSH FSH 7.5 mIU/m L normal Refer ence Range Folli cular Phase 2.5-1 0.2 Mid-c ycle Peak 3.1-1 7.7 Lutea l Phase 1.5- 9.1 Postm enopa usal 23.0- 116.3 Not Available [employer] [address], [address], 12/19/2024 10:11:39 12/12/19 25 12/19/2024 LH LH 3.8 mIU/m L normal Refer ence Range Folli cular Phase 1.9-1 2.5 Mid-C ycle Peak 8.7-7 6.3 Lutea l Phase 0.5-1 6.9 Postm enopa usal 10.0- 54.7 Not Available [employer] [address], [address], 12/19/2024 10:11:39 12/12/19 25 12/19/2024 PROGE STERO NE progesterone <0.5 NG/mL normal Refer ence Range s Femal e Folli cular Phase < 1.0 Lutea l Phase 2.6-2 1.5 Post menop ausal < 0.5 Pregn rita 1st Trime ster 4.1-3 4.0 2nd Trime ster 24.0- 76.0 3rd Trime ster 52.0- 302.0 Not Available [employer] [address], [address], 12/19/2024 10:11:40 12/12/19 25 12/19/2024 PROLA CTIN prolactin 6.8 NG/mL normal Refer ence Range Femal es Non-p regna nt 3.0-3 0.0 Pregn ant 10.0- 209.0 Postm enopa usal 2.0-2 0.0 Not Available [employer] [address], [address], 12/19/2024 10:11:41 12/12/1912/19/2024 T4, FREE T4, free 1.3 NG/dL 0.8-1. 8 normal Not Available [employer] [facility] [address] [place], [address], 12/19/2024 10:11:42 12/12/19 25 12/19/2024 TSH TSH 4.91 mIU/L high Refer ence Range > or = 20 Years 0.40- 4.50 Pregn rita Range s First trime ster 0.26- 2.66 Secon d trime ster 0.55- 2.73 Third trime ster 0.43- 2.91 Not Available [employer] [facility] [id number] [place] [address], [id number], 12/19/2024 10:11:43 12/12/1912/19/2024 VITAM IN B12 vitamin B12 389 pg/mL 200-11 00 normal Pleas e Note: Altho ugh the refer ence range for vitam in B12 is 200-1 100 pg/mL , it has been repor trell that betwe en 5 and 10% of patie nts with value s betwe en 200 and 400 pg/mL may exper ience neuro psych iatri c and hemat ologi c abnor malit ies due to occul t B12 defic iency ; less than 1% of patie nts with value s above 400 pg/mL will have sympt oms. Not Available [employer] [facility] [address] [place], [address], 12/19/2024 10:11:44 12/12/1912/19/2024 ESTRA DIOL estradiol 48 pg/mL normal Refer ence Range Folli cular Phase : 19-14 4 Mid-C ycle: 64-35 7 Lutea l Phase : 56-21 4 Postm enopa usal: < or = 31 Refer ence range estab lishe d on post- puber isaías patie nt popul ation . No pre-p ubert al refer ence range estab lishe d using this assay . For any patie nts for whom low Estra diol level s are antic ipate d (e.g. males , pre-p ubert al child lizette and hypog onada l/pos t-men opaus al femal es), the [facility] Andrea [facility] Inst[facility] tute Estra diol, Ultra sensi tive, LCMSM S assay is recom minh d (orde r code 81052 ). Moira e note: patie nts being treat ed with the drug fulve stran t (Fasl odex( R)) have demon strat ed signi fican t inter feren ce in immun oassa y metho ds for estra diol measu remen t. The cross react ivity could lead to false ly eleva trell estra diol test resul ts leadi ng to an inapp ropri ate clini [place] asses sment of estro gen statu s. [facility] order code 65315 -Estr adiol , Ultra sensi tive LC/MS /MS demon strat es negli gible cross react ivity with fulve stran t. Not Available [employer] [facility] [address] [place], [address], 12/19/2024 10:11:44 12/12/1912/19/2024 T3, FREE T3, free 3.0 pg/mL 2.3-4. 2 normal Not Available [employer] [facility] [address] [place], [address], 12/19/2024 10:11:45 12/12/1912/19/2024 B TYPE NATRI URETI C PEPTI DE (BNP) B type natriuretic peptide (BNP) 18 pg/mL <100 normal BNP level s incre ase with age in the gener al popul ation with the highe st value s seen in indiv idual s great er than 75 years of age. Refer ence: J. Am. [place]. Cardi ol. 2002; 40:97 6-982 . Not Available [employer] [facility] [address] [place], [address], 12/19/2024 10:11:46 12/12/1912/19/2024 VITAM IN D,25- OH,TO ISAÍAS,I A vitamin D,25-oh,tota l,ia 35 NG/mL 30-100 normal Vitam in D Statu s 25-OH Vitam in D: Defic iency : <20 ng/mL Insuf ficie ncy: 20 - 29 ng/mL Optim al: > or = 30 ng/mL For 25-OH Vitam in D testi ng on patie nts on D2-dang pplem entat ion and patie nts for whom quant itati on of D2 and D3 fract ions is requi red, the [facility](TM ) 25-OH VIT D, (D2,D 3), LC/MS /MS is recom minh d: order code 66639 (ria ents >2yrs ). See Note 1 Note 1 For addit ional infor moira meraz refer to http: //[facility] farhad Avery stDia gnost ics.c om/fa q/FAQ 199 (This link is being provi ded for infor celeste farah/ rosanne cook purpo ses only. ) Not Available [employer] [facility] [address] [place], [address], 12/19/2024 10:11:47 12/12/1912/19/2024 MAGNE SIUM, RBC magnesium, RBC 4.6 mg/dL 4.0-6. 4 (Note ) This test was devel oped and its mis tical perfo rmanc e lakisha cteri stics have been deter mined by [facility]. It has not been clear ed or appro libia by the FDA. This assay has been valid ated pursu ant to the CLIA regul ation s and is used for clini [place] purpo ses. F med fusio n [address] [facility] [address] [facility] [address] [phone] Sheba Bell MD, PhD Not Available [employer] [facility] [address] [place], [address], 12/19/2024 10:11:48 Result Notes None recorded. Problems Name Problem SNOMED Code Status Onset Date Resolution Date Notes Provider Name and Address Organization Details Recorded Time Axillary lymphadenop athy [id number] Rachel CORONEL, [address], [address] , [facility] 15:46:59 Deep venous thrombosis of upper extremity [id number] Rachel CORONEL, [address] 5, [facility] 15:46:59 Chronic obstructive pulmonary disease [id number] Rachel CORONEL, [address] , [facility] 15:46:59 History of supraventri cular tachycardia [id number] 4101 Rachel CORONEL, [address] , [facility] 15:46:59 Amenorrhea [id number] Rachel CORONEL, [address] , [facility] 15:46:59 Secondary amenorrhea [id number] Rachel CORONEL, [place] [address] , [facility] 15:46:59 Past history of section [id number] Rachel CORONEL, [address] , [facility] 15:46:59 History of operative procedure on foot [id number] 9103 Rachel CORONEL, [address] 5, [facility] 15:46:59 Pleurisy [id number] Rachel CORONEL, [address], [address], [facility] 15:46:59 Rheumatoid arthritis of knee 032581097 Rachel CORONEL, [address], [address], [facility] 15:46:59 Seropositiv e rheumatoid arthritis 824206551 Rachel CORONEL, [address], [address] , [facility] 15:46:59 Weight increased [id number] Rachel CORONEL, [address], [address] , [facility] 15:46:59 Occlusion of artery 6850155 Rachel CORONEL, [address], [address] , [facility] 15:46:59 Chest pain [id number] Rachel CORONEL, [place] [address] , [facility] 14:57:38 Patient encounter status [id number] Rachel CORONEL [place] [address] , [facility] 14:57:38 Thyroid stimulating hormone level above reference range 221373907 Rachel CORONEL, [place] [address] , [facility] 5 15:46:59 Depressive disorder [id number] Rachel CORONEL, [place] [address], [facility] 5 15:46:59 Allergic reaction to animal 531688075 Rachel CORONEL, [place] [address], [facility] 5 15:46:59 Environment al allergy [id number] Rachel CORONEL, [place] [address], [facility] 5 15:46:59 History of tonsillecto [id number] Rachel CORONEL, [place] [address], [facility] 5 15:46:59 Abnormal uterine bleeding [id number] 0 Rachel CORONEL, [place] [address], [facility] 5 15:46:59 Taking high risk medication [id number] 07 Rachel CORONEL, [place] [address], [facility] 5 15:46:59 Anxiety 75017652 Rachel CORONEL, [place] [address], [facility] 5 14:57:38 Oligomenorr hea 57710245 Rachel CORONEL, [place] [address], [facility] 5 15:47:00 Pain of breast 47188813 Active CEE CORONEL, [address], [address], [facility] 5 15:47:00 Dyspnea on exertion 94136872 Active CEE CORONEL, [address], [address], [facility] 5 15:47:00 Diarrhea 60443859 Active CEE CORONEL, [address], [address], [facility] 5 15:47:00 Costal chondritis 06752758 Active CEE CORONEL, [address], [address], [facility] 5 15:47:00 Obstructive sleep apnea syndrome 39613217 Active CEE CORONEL, [address], [address], [facility] 15:47:00 COVID-19 077705316 Active CEE CORONEL, [address], [address], [facility] 15:47:00 Ex-smoker 9479813 Active CEE CORONEL, [address], [address], [facility] 15:47:00 Left ventricular ejection fraction decreased 506240933 Active CEE CORONEL, [address], [address] [place] [address] 5, [facility] 5 15:47:00 Anxiety attack 975379664 Active CEE CORONEL, [address], [address], [facility] 5 14:57:08 Enzyme level - finding 143902960 Active CEE CORONEL, [address], [address], [facility] 5 14:57:38 History of cholecystec michelle 370762266 Active 2018 CEE CORONEL, [address], [address], [facility] 5 15:46:59 Restrictive lung disease 61076731 Active [address] [facility] 4 10:42:04 Supraventri cular tachycardia 7797922 Active 2023 CEE CORONEL, [address], [address], [facility] 5 14:57:38 Gastroesoph ageal reflux disease without esophagitis 760148117 Active [address] [facility] 4 10:42:22 Iron deficiency anemia 87053681 Active [address] [facility] 4 10:42:38 Mixed anxiety and depressive disorder 471021104 Active [address] [facility] 4 10:42:51 Vitamin D deficiency 12136059 Active [address] [facility] 4 10:43:05 Problem Notes None recorded. Procedures Surgical History Date Name Laterality Status Provider Name and Address Organization Details Recorded Time 11/08/19 24 mammography completed [facility] 11/11/2023 18:42:32 06/09/19 screening mammography completed [facility] 10/11/2023 10:41:26 Tubal Ligation completed [facility] 06/09/2023 13:17:22 Tonsillectomy completed [facility] LKirtL[facility]irt[facility] 06/09/2023 13:17:27 Cholecystectomy completed [facility] 06/09/2023 13:17:46 Imaging Results None recorded. Procedure Notes None recorded. Medical Equipment None Reported. Allergies Allergen ID Allergen Name Allergen Category Reaction Reaction Severity Criticality Documentation Date Start Date Code Code System Note Provider Name and Address Organization Details Recorded Time 58809 Bactrim medicatio n hives moderate high 11/20/2022 74362 9 RxNorm SOPHIA [facility] Far[facility]ad[facility]irt 5 14:24:41 58934 sulfameth oxazole medicatio n Not available Not available Not available 11/27/20242024 01270 RxNorm CEE CORONEL, [address], [address], [facility], LKirtLKirtCKirt 5 14:57:27 42058 trimethop rim medicatio n Not available Not available Not available 11/27/20242024 18517 RxNorm CEE CORONEL, [facility] [address] [place] [address], [address], [facility], FarzadLKirtCKirt 5 14:57:27 09073 bupropion Not available anxiety severe Not available 11/27/20242024 03723 RxNorm CEE CORONEL, [employer] [address] [place], [address] , [facility] 14:58:12 Medications Name Sig Start Date Stop Date Status Note LastModified by Organization Details LastModified Time amoxicill in 500 mg capsule TAKE 1 CAPSULE BY MOUTH EVERY 8 HOURS FOR 7 DAYS 11/12 completed Not Available Not Available Not Available buspirone 5 mg tablet Take 2 tablets twice a day by oral route as needed for 90 days, for anxiety. 01/01 completed Not Available Not Available Not Available bupropion HCl SR 150 mg tablet,12 hr sustained -release TAKE 1 TABLET BY MOUTH TWICE DAILY 09/07 completed Not Available Not Available Not Available vitamin A 2,400 mcg capsule 2400 microgra ms by oral route. 2024 active Not Available Not Available Not Avai lable olanzapin e 5 mg tablet 5 mg by oral route. 11/22 completed Not Available Not Available Not Available Zyrtec 10 mg tablet daily 09/07 completed 0; Recorded 06/18/19 23 8:54AM by Amy Cortes CMT, Office Visit; Not Available Not Available Not Available levothyro xine 25 mcg tablet TAKE 1 TABLET BY MOUTH ONCE DAILY FOR 30 DAYS active Not Available Not Available No t Available cyanocoba suzanna (vit B-12) 50 mcg tablet 50 microgra ms by oral route. 2024 active Not Available Not Available Not Avai lable paroxetin e 30 mg tablet 12/04 completed made her feel flat Not Available Not Available Not Available paroxetin e 20 mg tablet Take 1 tablet every day by oral route at bedtime for 30 days. 06/09 completed Not Available Not Available Not Available buspirone 10 mg tablet Take 1 tablet 3 times a day by oral route for 30 days. 2024 active Not Available Not Available Not Avai lable bupropion HCl 75 mg tablet 75 mg by oral route. 2024 active Not Available Not Available Not Avai lable omeprazol e 20 mg capsule,d elayed release Take 1 capsule every day by oral route for 30 days. 01/07 completed Not Available Not Available Not Available hydrochlo rothiazid e 25 mg tablet TAKE 1 TABLET BY MOUTH ONCE DAILY NEEDED FOR SWELLING active Not Available Not Available No t Available norethind mazin acetate 5 mg tablet TAKE 1 TABLET BY MOUTH ONCE DAILY 09/07 completed Not Available Not Available Not Available metoprolo l succinate ER 25 mg tablet,ex tended release 24 hr TAKE 1 TABLET BY MOUTH ONCE DAILY 09/07 completed Not Available Not Available Not Available lorazepam 1 mg tablet 1 mg by oral route. 2024 active Not Available Not Available Not Avai lable bupropion HCl XL 150 mg 24 hr tablet, extended release 12/04 completed Not Available Not Available Not Available Vitamin C active Not Available Not Danielle ilable Not Available norethind mazin-mest ranol daily 06/02 completed 0; Recorded 06/18/19 23 8:54AM by Amy Cortes CMT, Office Visit; Not Available Not Available Not Available Fish Oil active Not Available Not Avai lable Not Available Iron (ferrous sulfate) active Not Available Not Available Not Available metoprolo l succinate at bedtime 06/02 completed 0; Recorded 06/18/19 23 8:54AM by Amy Cortes CMT, Office Visit; Not Available Not Available Not Available Vitamin D3 active Not Available Not Available Not Available bupropion HCl two times daily 06/02 completed Recorded 06/18/19 23 3:48PM by ANTONY Galo, Annotati on/Adden dum; Refill Quantity : 60; Tablet; Not Available Not Available Not Available Vitamin B12 active Not Available Not Available Not Available CoQ-10 active Not Available Not Availa ble Not Available cholecalc iferol (vitamin D3) 50 mcg (2,000 unit) tablet 50 microgra ms by oral route. 2024 active Not Available Not Available Not Avai lable magnesium glycinate active Not Available Not Available No t Available Vitals Date Recorded Body height Body mass index (BMI) Body weight Oxygen saturation Oxygen saturation in Arterial blood by Pulse oximetry Heart rate Respiratory rate Systolic And Diastolic Provider Name and Address Organization Details Last Updated DateTime 5 165.1 cm 73.9 kg/m2 920301. 01 g 97 % 97 % 100 /min 26 /min 138/86 mm[Hg] AMY CORTES [facility] 5 15:31:56 Date Recorded Body height Body mass index (BMI) Body weight Oxygen saturation Oxygen saturation in Arterial blood by Pulse oximetry Heart rate Respiratory rate Systolic And Diastolic Provider Name and Address Organization Details Last Updated DateTime 5 165.1 cm 73.6 kg/m2 800299. 83 g 97 % 97 % 84 /min 24 /min 142/80 mm[Hg] AMY CORTES [facility] 5 15:51:31 Date Recorded Body height Oxygen saturation Oxygen saturation in Arterial blood by Pulse oximetry Heart rate Respiratory rate Provider Name and Address Organization Details Last Updated DateTime 5 165.1 cm 98 % 98 % 82 /min 22 /min AMY CORTES [facility] 5 11:45:01 Date Recorded Body height Body mass index (BMI) Body weight Oxygen saturation Oxygen saturation in Arterial blood by Pulse oximetry Heart rate Body temperature Systolic And Diastolic Provider Name and Address Organization Details Last Updated DateTime 5 165.1 cm 73.6 kg/m2 138523. 83 g 98 % 98 % 84 /min 97.9 [degF] 136/86 mm[Hg] SOPHIA CURTISOVER [facility] 5 14:37:11 Social History Question Answer Notes LastModified by Organizat ion Details LastModified Time Tobacco Smoking Status Former Smoker Quit age 33 AMY CORTES [facility] 06/09/2023 13:13:29 When Did You Quit Smoking? 11-15yearssi kamar storey Information not available 01/07/2025 What Was The Date Of Your Most Recent Tobacco Screening? 01/07/2025 Information not available 01/07/2025 What Is Your Current Pack Years? 10-19packyeodilon rs Information not available 01/07/2025 What Is Your Relationship Status? [email or web address] Information not available 06/09/2023 At What Age Did You Start Smoking Tobacco? 17 Information not available 01/07/2025 How Much Tobacco Do You Smoke? No Information not available 01/07/2025 How Many Years Have You Smoked Tobacco? 16 Information not available 01/07/2025 Sex: Unknown Functional Status Question Answer Note LastModified by Organizat ion Details LastModified Time Do you use any illicit or recreational drugs? No [email or web address] Information not available 06/09/2023 Do you or have you ever used any other forms of tobacco or nicotine? No Information not available 01/07/2025 What is your level of alcohol consumption? None [email or web address] Information not available 06/09/2023 Are you currently employed? No Information not available 06/09/2023 Are you able to care for yourself independently? Yes [email or web address] Information not available 06/09/2023 Do you or have you ever used any nicotine-free cigarettes, vape, or chewing tobacco? No Information not available 01/07/2025 Mental Status None recorded. Family History Relationship Description Onset Age of this Age Resolved Age Notes LastModified by Organization Details LastModified Time Mother Essential hypertension Not available 13:14:40 Mother Asthma [email or web address] Not available 10/11/2023 10:38:11 Mother Myocardial infarction [email or web address] Not available 09/23 10:39:53 Father Drug abuse Meth addict ion/de ceased age 64 [email or web address] Not available 06/09/2023 13:16:44 Father Type 2 diabetes mellitus Not available 06/09 13:17:09 Paternal Grandfather Type 2 diabetes mellitus [email or web address] Not available 10/10 10:39:11 Paternal Grandfather Essential hypertension [email or web address] Not available 10:38:40 Maternal Grandmother Malignant neoplasm of uterus [email or web address] Not available 10/10 10:38:24 Paternal Grandmother Essential hypertension [email or web address] Not available 10:38:51 Paternal Grandmother Coronary arterioscler osis [email or web address] Not available 10/10 10:40:07 Brother Type 2 diabetes mellitus [email or web address] Not available 10/10 10:39:17 Maternal Grandfather Myocardial infarction [email or web address] Not available 09/23 10:39:53 Medical History Condition Response Anxiety Disorder Y Hypothyroidism Y Depression Y Gynecological HistoryNo gynecological history recorded. Obstetrics History GPAL:G 0 P 0 0 0 0 Immunizations Vaccine Type Date Status Note Provider Nam e and Address Organization Details Recorded Time Td (adult), 2 Lf tetanus toxoid, preservative free, adsorbed 5 completed CEE CORONEL, [address], [address], [facility] 06/09/2023 13:35:36 Influenza, split virus, trivalent, preservative 4 dawood CORONEL, [address], [address], [facility] 06/09/2023 13:35:36 Influenza, split virus, trivalent, preservative 5 dawood CORONEL, [address], [address], [facility] 06/09/2023 13:35:36 Influenza, split virus, trivalent, preservative 0 dawood CORONEL, [address], [address], [facility] 06/09/2023 13:35:36 Influenza, split virus, trivalent, preservative 3 dawood CORONEL, [address], [address], [facility] 06/09/2023 13:35:36 Td(adult) unspecified formulation 2 completed ANTONY NICHOLS [address] [place] [address], [address], [facility], Kassandra 06/09/2023 13:35:36 Past Encounters Encounter ID Performer Location Encounter Start Date Encounter Closed Date Diagnosis/Indication Diagnosis SNOMED-CT Code Diagnosis ICD10 Code Diagnosis IMO Codes Diagnosis Note [id number] ANTONY NICHOLS [facility] ([facility]) [address] [place] [address] 06/09/2023 12:21:11 06/09/2023 13:46:28 Mixed anxiety and depressive disorder 441106746 F41.8 Adult heal th examination 253651650 Z00.00 Recent was seen for her well woman visit with Dr. Estrella and he has referred her to see endocrinol ogy because her thyroid level was off. Allergy to food 35213322 1 T78.1XXA Diarrhea, bloating, excessive gas, belly pain. [id number] ANTONY NICHOLS [facility] ([facility]) [address] [place] [address] 09/08/2023 13:50:29 09/08/2023 14:49:46 Moderate recurrent major depression 49063315 F33.1 Screening mammography 24 142873 Z12.31 [id number] ANTONY NICHOLS [facility] ([facility]) [address] [place] [address] 10/11/2023 13:55:16 10/11/2023 15:10:28 Depressive disorder 90215865 F32.9 She has not been able to set up counseling yet. [id number] CEE CORONEL [employer] [facility] ([facility]) [address] [place] [address] 11/10/2023 14:23:17 11/10/2023 15:18:38 Mixed anxiety and depressive disorder 496328013 F41.8 [id number] CEE CORONEL [employer] [facility] ([facility]) [address] [place] [address] 11/13/2024 10:14:19 11/13/2024 11:28:35 Depressive disorder 39744170 F33.1 Chronic diarrhea 8740586 09 K52.9 01692 Reports she has diarrhea now immediatel y after she eats. She feels nauseated after eating and then tired after having a bowel movement. Fatigue 62028677 R53.83 1267174 Tired a lot. [id number] CEE HOMER [facility] ([facility]) [address] [place] [address] 11/27/2024 14:59:09 11/27/2024 16:28:47 Depressive disorder 41470897 F33.1 Generalize d anxiety disorder 74183437 F41.1 743907 Continue buspirone. [id number] CEE HOMER [facility] ([facility]) [address] [place] [address] 12/04/2024 14:39:19 12/04/2024 17:00:32 Generalized anxiety disorder 21948309 F41.1 077695 Continue buspirone. Moderate r ecurrent major depression 49170737 F33.1 Paroxetine made her feel too flat. Did not tolerate Wellbutrin . Muscle pain 95781676 M79 .10 43824 Edema of l ower extremity 486233230 R60.0 58919 [id number] CEE HOMER [facility] ([facility]) [address] [place] [address] 12/11/2024 09:18:31 12/14/2024 13:05:38 Oligomenorrhea 48941485 N91.5 Secondary amenorrhea 156 381587 N91.1 Muscle pain 94969692 M79 .10 533668 [id number] CEE HOMER [facility] ([facility]) [address] [place] [address] 12/18/2024 11:20:27 12/27/2024 07:53:51 Acquired hypothyroidism 649230567 E03.9 12274 Panic disorder 789268486 F41.0 85555 Moderate r ecurrent major depression 80086473 F33.1 Paroxetine made her feel too flat. Did not tolerate Wellbutrin . [id number] ANTONY NICHOLS [facility] ([facility]) [address] [place] [address] 01/07/2025 13:55:34 01/07/2025 15:31:28 Mixed anxiety and depressive disorder 817887818 F41.8 Doing well with the Buspirone. Liver enzy mes level above reference range 499418358 R74.8 293545 Snoring 12032508 R06.83 25525 Chronic insomnia 9524818 04 F51.04 417351 She will take melatonin as needed. Health Concerns Section Related Observation LastModified by Organization Detai ls LastModified Time None Recorded Concern Status LastModified by Organization Details LastModified Time None Recorded Advance Directives Directive None Recorded Payers Insurance Date Sequence Insurance Name Policy Number Policy Jones Covered Member ID Jones Member ID Guarantor Name 01/07/2025 1 *SELF PAY* Janel Goldsmith 01/07/2025 1 [place] [employer] [place] [id number] Josette Goldsmith [id number] Josette Goldsmith 01/07/2025 [place] [facility] (INSTITUTIONAL ) Josette Goldsmith [id number] Josette Goldsmith Notes Date Note Type Note Provider Name and Address Organization Details Recorded Time 5 text/html Anxiety/DepressionReporte d by PatientHPIFor severity, patient reportsmood worseandinterference with activities of daily livingbut reportsdenies suicidal ideations. For context, patient reportsmajor life stressorsandfamily problems. For associated symptoms, patient reportsdepression,sleep disturbances,sleeping more (hypersomnia),low self-esteem,despair/hopel essness,social withdrawal,decreased effectiveness/productivit y,stomach cramps,diarrhea,decreased energy, andfatigue(nausea, vomiting).ROS as noted in the HPI ANTONY NICHOLS [address] [place], [address], [facility], [place] 11/30/2024 15:18:11 5 text/html Anxiety/DepressionReporte d by PatientHPIFor severity, patient reportsmood worseandinterference with activities of daily livingbut reportsdenies suicidal ideations. For context, patient reportsmajor life stressorsandfamily problems. For associated symptoms, patient reportsdepression,sleep disturbances,sleeping more (hypersomnia),low self-esteem,despair/hopel essness,social withdrawal,decreased effectiveness/productivit y,stomach cramps,diarrhea,decreased energy, andfatigue(nausea, vomiting).ROS as noted in the [facility], [address], [address], [facility] 12/04/2024 16:51:43 5 text/html Anxiety/DepressionReporte d by PatientHPIFor severity, patient reportsmood worseandinterference with activities of daily livingbut reportsdenies suicidal ideations. For context, patient reportsmajor life stressorsandfamily problems. For associated symptoms, patient reportsdepression,sleep disturbances,sleeping more (hypersomnia),low self-esteem,despair/hopel essness,social withdrawal,decreased effectiveness/productivit y,stomach cramps,diarrhea,decreased energy, andfatigue(nausea, vomiting).ROS as noted in the [facility], [address], [address], [facility] 01/01/2025 17:16:32 5 text/html Anxiety/DepressionReporte d by PatientHPIFor severity, patient reportsinterference with activities of daily livingbut reportsdenies suicidal ideationsandable to maintain relationships. For context, patient reportsmajor life stressorsandfamily problems. For associated symptoms, patient reportsdepression,sleep disturbances,sleeping more (hypersomnia),low self-esteem,despair/hopel essness,social withdrawal,decreased effectiveness/productivit y,stomach cramps,diarrhea,decreased energy, andfatigue(nausea, vomiting).ROS as noted in the [facility], [address], [facility] - [facility], [place] 01/07/2025 15:23:24 OBGyn Episode No OBEpisode recorded.
--- OUTSIDE RECORDS SUMMARY | 2025-01-24 23:40 | XMS_ITS | Encounter Summary ---
Author Organization [facility] Address [address] [place] [address] Care Team Providers Care Market Development Analyst Name Role Phone Unavailable Primary Care Provider Unavailabl e Encounter Details Date Type Department Care Team (Late st Contact Info) Description 12/10/2004 Emergency [facility] Emergency Department [address] 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 Gender Identity Not on file Sexual Orientation [...] CHEMISTRY ORDERABLES Final Result Performing Organization Address [facility] Phone Number INTERFACE SYSTEM Refer to clinic/hospital department * LIPASE (12/11/2004 5:30 AM CDT) LIPASE 80 23 - 300 IU/L INTERFACE SYSTEM 12/11/2004 5:30 AM CDT Heriberto Jacobs DO CHEMISTRY ORDERABLES Final Result Performing Organization Address [facility] Phone Number INTERFACE SYSTEM Refer to clinic/hospital department * AMYLASE (12/11/2004 5:30 AM CDT) AMYLASE 32 30 - 120 IU/L INTERFACE SYSTEM 12/11/2004 5:30 AM CDT us Heriberto Jacobs DO CHEMISTRY ORDERABLES Final Result Performing Organization Address [facility] Phone Number INTERFACE SYSTEM Refer to clinic/hospital [...] ORDERABLES Final Res ult Performing Organization Address [facility] Phone Number INTERFACE SYSTEM Refer to clinic/hospital department * ICTOTEST (12/11/2004 3:15 AM CDT) ICTO Negative Negative INTERFACE SYSTEM 12/11/2004 3:15 AM CDT us Heriberto Lepes DO URINE ORDERABLES Final Res ult Performing Organization Address [facility] Phone Number INTERFACE SYSTEM Refer to clinic/hospital department * ACETONE QUALITATIVE, URINE (12/11/2004 3:15 AM CDT) KETONES UA Negative Negative INTERFACE SYSTEM 12/11/2004 3:15 AM CDT us Heriberto [place] Jacobs DO URINE ORDERABLES Final Res ult Performing Organization Address [facility] Phone Number INTERFACE SYSTEM Refer to clinic/hospital [...]
--- OUTSIDE RECORDS SUMMARY | 2025-01-24 23:40 | XMS_ITS | Clinical Summary ---
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
[2025-01-25 01:14] LABS: Hematocrit 38.9 % (36-47); Hemoglobin 11.90 g/dL (11.27-16.99); Mean Corpuscular HGB Conc 30.6 g/dL (30-55); Mean Corpuscular Hemoglobin 27.2 pg (27-33); Mean Corpuscular Volume 88.8 fl (85-98); Nucleated Red Blood Cells % 0 %; Platelet Count 256 10^3/cmm (157-399); Red Blood Count 4.38 10^6/uL (3.85-5.65); White Blood Count 9.14 10^3/uL (3.29-11.43)
[2025-01-25 01:35] LABS: Alanine Aminotransferase 100 U/L (0-33); Albumin Level 4.1 g/dL (3.5-5.2); Alkaline Phosphatase 90 U/L (35-105); Anion Gap 16.8 (5-19); Aspartate Amino Transferase 77 U/L (0-32); Blood Urea Nitrogen 12 mg/dL (6-20); Calcium 9.5 mg/dL (8.5-10.5); Carbon Dioxide 27 mmol/L (22-29); Chloride 102 mmol/L (98-107); Creatinine Clr Calc Pharmacy 180.0840; Globulin 2.8 g/dL (1.3-4.6); Glucose 105 mg/dL (65-115); Osmolality Calculated 294 mOsm/kg (285-295); Potassium 3.8 mmol/L (3.5-5.1); Sodium 142 mmol/L (136-145); Total Protein 6.9 g/dL (6.6-8.7)
--- NOTE | 2025-01-25 01:50 | CTR_ITS ---
PROCEDURE INFORMATION: Exam: CT Abdomen And Pelvis Without Contrast Exam date and time: 01/25/2025 1:56 AM Age: 44 years old Clinical indication: Pain; Other: Flank; Prior surgery; Surgery date: 6+ months; Surgery type: Tubal, gallbladder; Additional info: Right flank pain TECHNIQUE: Imaging protocol: Computed tomography of the abdomen and pelvis without contrast. Radiation optimization: All CT scans at this facility use at least one of these dose optimization techniques: automated exposure control; mA and/or kV adjustment per patient size (includes targeted exams where dose is matched to clinical indication); or iterative reconstruction. COMPARISON: CT abdomen pelvis w con* [id number] 03/30/2019 4:08 PM RADIATION DOSE METRICS: Total DLP (mGy-cm): 1508.43 FINDINGS: Liver: The liver is enlarged. The liver is otherwise within normal limits. Gallbladder and biliary ducts: The gallbladder is surgically absent. Pancreas: Mild fatty atrophy of the pancreas is noted. No ductal dilatation is seen. No peripancreatic inflammation. No solid pancreatic lesion. Spleen: Normal. No splenomegaly. Adrenal glands: Normal. No mass. Kidneys and ureters: Multiple nonobstructive left renal stones are present. The largest measures up to 5 mm. The ureters are difficult to track in their entirety. No hydroureter is present. Small ossific densities are seen in the region of the course of the distal left ureter. Stomach and bowel: Unremarkable. No obstruction. No mucosal thickening. Appendix: The appendix is not clearly identified. No inflammation in the right lower quadrant is present to suggest acute appendicitis. Intraperitoneal space: Unremarkable. No free air. No significant fluid collection. Vasculature: Unremarkable. No abdominal aortic aneurysm. Lymph nodes: Unremarkable. No enlarged lymph nodes. Urinary bladder: Unremarkable as visualized. Reproductive: Unremarkable as visualized. Bones/joints: Findings are particularly obscured in the central pelvis. Degenerative joint and disc disease is seen in the imaged spine. Soft tissues: Unremarkable. Other findings: The evaluation is somewhat limited secondary to patient body habitus and photon starvation. CT/CT kidney stone [id number] IMPRESSION: 1. Nonobstructive left nephrolithiasis, largest stone measuring up to 5 mm. 2. Small ossific densities along the course of the poorly characterized distal left ureter. In the absence of hydroureter/hydronephrosis, this is favored to represent a phlebolith. Small nonobstructive ureteral stone can not be excluded. Correlate with urinalysis/cytology. 3. Hepatomegaly. Correlate with LFTs. 4. Otherwise, no acute process in the abdomen or pelvis to explain the patient's symptoms.
[2025-01-25 02:04] VITALS: BP 202/98; PULSE 79; RESP 18; O2SAT 98
[2025-01-25 02:21] LABS: Add Urine Microscopic? YES; UA Manual Slide Review YES
--- NOTE | 2025-01-25 02:44 | W.ED.BACK ---
HPI - Back Pain/Injury General: Chief Complaint: Back Pain/Injury Stated Complaint: Pain in RT Kidney area, Nausea Time Seen by Provider: 01/25/25 01:33 History of Present Illness: 44 yo F with history of water retention started on a diuretic about one month ago presents with right lower back pain that began two days ago. Pt reports low water intake and is concerned about dehydration. She notes bilateral ankle swelling. No additional symptoms or review of systems details provided. Related Data Home Medications ?Medication ?Instructions ?Recorded ?Confirmed bupropion HCl 75 mg tablet 75 mg PO TID 12/20/24 12/20/24 buspirone 5 mg tablet 7.5 mg PO TID 12/20/24 12/20/24 cholecalciferol (vitamin D3) 50 50 mcg PO DAILY 12/20/24 12/20/24 mcg (2,000 unit) tablet (Vitamin D3) cyanocobalamin (vitamin B-12) 50 50 mcg PO DAILY 12/20/24 12/20/24 mcg tablet (Vitamin B-12) hydrochlorothiazide 25 mg tablet 25 mg PO DAILY PRN swelling 12/20/24 12/20/24 levothyroxine 25 mcg tablet 25 mcg PO DAILY 12/20/24 12/20/24 lorazepam 1 mg tablet 1 mg PO TID PRN Anxiety 12/20/24 12/20/24 magnesium 250 mg tablet 250 mg PO DAILY 12/20/24 12/20/24 rhubarb root extract 4 mg tablet 4 mg PO DAILY 12/20/24 12/20/24 (Estroven Complete Menopause Relief) vitamin A 2,400 mcg capsule 2,400 mcg PO DAILY 12/20/24 12/20/24 vitamin B complex 1 tab PO DAILY 12/20/24 12/20/24 Allergies Allergy/AdvReac Type Severity Reaction Status Date / Time sulfamethoxazole (From Allergy ALGY-Rash Verified 12/20/24 14:50 Bactrim) trimethoprim (From Bactrim) Allergy ALGY-Rash Verified 12/20/24 14:50 bupropion (From Wellbutrin) AdvReac ADR-Anxiety Verified 12/20/24 14:50 PFS ED PFSH: Medical History (Updated 01/25/25 @ 02:43 by Tj Castle MD) SVT (supraventricular tachycardia) Immunization counseling High risk medication use Rheumatoid arthritis with rheumatoid factor No pertinent past medical history neg hx: htn,dm,thyroid,dvt/pe Depression Anxiety Surgical History S/P tonsillectomy H/O foot surgery (~1991) left-- fracture in growth plate Previous section (~2010) S/P cholecystectomy (~01/2019) Family History Grandmother Diabetes Hypertension Hyperlipidemia Stroke Paternal grandmother Heart disease Maternal grandmother Uterine cancer, Onset Age: 50 MGM Grandfather Diabetes Hypertension Hyperlipidemia Stroke Paternal grandfather Heart disease Paternal grandfather Maternal grandfather Father Diabetes Brother Diabetes Family/Other Diabetes Maternal aunt Breast cancer Paternal Cousin--dx'd in her early 30s Mother Hypertension Heart disease Family history of thyroid problem Other CAD (coronary artery disease) Rheumatoid arthritis Denies family history of Colon cancer Ovarian cancer Lupus Chronic kidney disease (CKD) Lung disease Cancer Social History Smoking and tobacco/nicotine status: never used tobacco/nicotine Substance/Drug Use: never Additional social history: - Tobacco use: Denies Alcohol use: Denies Drug use: Denies Do you think of yourself as: Straight/Heterosexual Current gender identity: Female Physical Exam Const: COMMON NORMALS: no acute distress, patient oriented x3 and alert HENMT: COMMON NORMALS: normocephalic and atraumatic HEAD & SCALP: normocephalic and atraumatic Eye: COMMON NORMALS: Equal, round and reactive pupils present, EOMs intact bilaterally and no scleral icterus PUPIL: Yes Equal, round and reactive pupils present Resp: COMMON NORMALS: normal respiratory effort and No retractions Cardio: COMMON NORMALS: regular rate, regular rhythm and No murmurs present (Cardio) RATE: regular rate RHYTHM: regular rhythm GI: COMMON NORMALS: Normal to inspection, nondistended, normoactive bowel sounds present, Soft to palpation and non-tender PALPATION: Yes Soft to palpation Back/Pelvis: OTHER: Focal tenderness with palpation of the right quadratus lumborum region. No midline tenderness of the spine. No pain with motion of the spine or radiation of pain down the saddle distribution however she does have increased pain with motion of the right lower back. No redness or warmth or rash. Neuro: COMMON NORMALS: patient oriented x3 SENSORIUM/ORIENTATION: Yes alert Skin: COMMON NORMALS: no rashes or lesions noted GENERAL SKIN EXAM: no rashes or lesions noted Course Vital Signs: Vital signs: Vital Signs Temperature 98.2 F 01/24/25 23:39 Pulse Rate 79 01/25/25 02:04 Respiratory Rate 18 01/25/25 02:04 Blood Pressure 202/98 01/25/25 02:04 Pulse Oximetry 98 01/25/25 02:04 Oxygen Delivery Me thod Room Air 01/25/25 02:04 MDM - Back Pain/Injury Medical Decision Making 44 yo F with right lower back pain x2 days, low water intake, on HCTZ started ~1 month ago for water retention, and bilateral ankle swelling. Pt concerned about dehydration. Primarily she is concerned about her back pain. CT scan shows no evidence of ureteral stone, pyelonephritis, or other worrisome etiology. Pain is likely consistent with musculoskeletal pain as it is worse with palpation and motion. I do not suspect sciatic involvement. She will be discharged in stable condition with instructions to stretch and use [id number] analgesics for pain control Labs 01/25/25 00:59 01/25/25 00:59 Radiology Impressions Abdomen/Pelvis CT 01/25/25 01:50 IMPRESSION: 1. Nonobstructive left nephrolithiasis, largest stone measuring up to 5 mm. 2. Small ossific densities along the course of the poorly characterized distal left ureter. In the absence of hydroureter/hydronephrosis, this is favored to represent a phlebolith. Small nonobstructive ureteral stone can not be excluded. Correlate with urinalysis/cytology. 3. Hepatomegaly. Correlate with LFTs. 4. Otherwise, no acute process in the abdomen or pelvis to explain the patient's symptoms. Laboratory Results WBC 9.14 10^3/uL (3.29-11.43) 01/25/25 00:59 RBC 4.38 10^6/uL (3.85-5.65) 01/25/25 00:59 Hgb 11.90 g/dL (11.27-16.99) 01/25/25 00:59 Hct 38.9 % (36-47) 01/25/25 00:59 MCV 88.8 fl (85-98) 01/25/25 00:59 MCH 27.2 pg (27-33) 01/25/25 00:59 MCHC 30.6 g/dL (30-55) 01/25/25 00:59 RDW 15.3 % (12.1-15.1) H 01/25/25 00:59 Plt Count 256 10^3/cmm (157-399) 01/25/25 00:59 MPV 11.2 fL (7.4-10.4) H 01/25/25 00:59 Neut % (Auto) 74.2 % 01/25/25 00:59 Lymph % (Auto) 16.7 % 01/25/25 00:59 [place] % (Auto) 7.0 % 01/25/25 00:59 Eos % (Auto) 1.3 % 01/25/25 00:59 Baso % (Auto) 0.5 % 01/25/25 00:59 Neut # (Auto) 6.77 10^3/uL (1.8-7.7) 01/25/25 00:59 Lymph # (Auto) 1.5 10^3/uL (0.8-4.8) 01/25/25 00:59 [place] # (Auto) 0.6 10^3/uL (0.2-0.9) 01/25/25 00:59 Eos # (Auto) 0.1 10^3/uL (0.0-0.8) 01/25/25 00:59 Baso # (Auto) 0.1 10^3/uL (0.0-0.1) 01/25/25 00:59 Nucleated RBC % (auto) 0 % 01/25/25 00:59 Nucleated RBCs # 0.0 /100WBC 01/25/25 00:59 Sodium 142 mmol/L (136-145) 01/25/25 00:59 Potassium 3.8 mmol/L (3.5-5.1) 01/25/25 00:59 Chloride 102 mmol/L (98-107) 01/25/25 00:59 Carbon Dioxide 27 mmol/L (22-29) 01/25/25 00:59 Anion Gap 16.8 (5-19) 01/25/25 00:59 BUN 12 mg/dL (6-20) 01/25/25 00:59 Creatinine 0.7 mg/dL (0.5-0.9) 01/25/25 00:59 GFR Calculation 90.5 mL/min (90-130) 01/25/25 00:59 Glucose 105 mg/dL (65-115) 01/25/25 00:59 Calculated Osmolality 294 mOsm/kg (285-295) 01/25/25 00:59 Calcium 9.5 mg/dL (8.5-10.5) 01/25/25 00:59 Total Bilirubin 0.9 mg/dL (0.15-1.2) 01/25/25 00:59 AST 77 U/L (0-32) H 01/25/25 00:59 ALT 100 U/L (0-33) H 01/25/25 00:59 Alkaline Phosphatase 90 U/L (35-105) 01/25/25 00:59 Total Protein 6.9 g/dL (6.6-8.7) 01/25/25 00:59 Albumin 4.1 g/dL (3.5-5.2) 01/25/25 00:59 Globulin 2.8 g/dL (1.3-4.6) 01/25/25 00:59 Urine Color Red (Yellow) A 01/25/25 01:44 Urine Appearance Turbid (CLEAR) A 01/25/25 01:44 Urine pH Not Reportable 01/25/25 01:44 Ur Specific [place] Not Reportable 01/25/25 01:44 Urine Protein Not Reportable 01/25/25 01:44 Urine Glucose (UA) Not Reportable 01/25/25 01:44 Urine Ketones Not Reportable 01/25/25 01:44 Urine Blood Not Reportable 01/25/25 01:44 Urine Nitrate Not Reportable 01/25/25 01:44 Urine Bilirubin Not Reportable 01/25/25 01:44 Urine Urobilinogen Not Reportable 01/25/25 01:44 Ur Leukocyte Esterase Not Reportable 01/25/25 01:44 Urine RBC >100 /hpf (0-2) H 01/25/25 01:44 Urine WBC 0-4 /hpf (0-5) H 01/25/25 01:44 Ur Squamous Epith Cells 0-4 /hpf (0-5) H 01/25/25 01:44 Amorphous Sediment Not Reportable 01/25/25 01:44 Urine Bacteria Trace /hpf (NONE) 01/25/25 01:44 Urine Mucus 1+ /hpf 01/25/25 01:44 All radiology interpretation(s) finalized by discharge Discharge Plan Discharge Patient Disposition: Home Clinical Impression: Acute right-sided low back pain Condition: Stable Prescriptions: No Action buspirone 5 mg tablet 7.5 mg PO TID vitamin A 2,400 mcg Capsule 2,400 mcg PO DAILY Vitamin B-12 50 mcg Tablet 50 mcg PO DAILY bupropion HCl 75 mg tablet 75 mg PO TID vitamin B complex Tablet 1 tab PO DAILY magnesium 250 mg Tablet 250 mg PO DAILY hydrochlorothiazide 25 mg tablet 25 mg PO DAILY PRN (Reason: swelling) lorazepam 1 mg Tablet 1 mg PO TID PRN (Reason: Anxiety) cholecalciferol (vitamin D3) [Vitamin D3] 50 mcg (2,000 unit) Tablet 50 mcg PO DAILY Estroven Cmplt Menopause Rlf 4 mg Tablet 4 mg PO DAILY levothyroxine 25 mcg tablet 25 mcg PO DAILY Discharge Orders: Discharge ED (Routine); Ordered 01/25/25 Ordered By: Tj Castle Referrals: Shannon Beal FNP [Primary Care Provider, Unknown] Discharge Diet: Usual diet Discharge Activity: Increase activity as tolerated Patient Instructions: Musculoskeletal Pain (ED), Patient Portal & Carolyn Instructions Print Language: Guinean Coding Level of Care Code ED Package Delivery Room Service Runner for Inga Estevez
[2025-01-25 03:02] VITALS: BP 181/122; PULSE 76; RESP 18; O2SAT 99
== END 2025-01-25 03:07 | disposition home or self-care (01) ==
PROVIDERS: Emergency Provider Student in an Organized Health Care Education/Training Program; PCP Nurse Practitioner Family
DX: M54.50 Low back pain, unspecified (principal)
CPT/HCPCS: 36415; 74176; 80053; 81001; 85025; 87086; 96372; 99284; J1885

== ENCOUNTER 2025-01-27 13:51 | Emergency (ER) | payer BC, MEDICAID, SELFPAY ==
--- OUTSIDE RECORDS SUMMARY | 2025-01-27 13:56 | XMS_ITS | Data Portability ---
Author Organization LILLIANA Valdez [facility] Toni, Kassandra, [facility] Address [address] [place] [address] Assessment Encounter Date Assessment Date Assessment LastModified [...] Details Appointments RECHECK 2024 01:00P Axel CORONEL, CLIP COATER Not available Not available Not available Lab estroge n, total, serum 2024 025 [facility], [address] [place] [address], [address], LILLIANA Sepulveda, [address], 12/18/2024 09:33:05 progest erone, serum 2024 025 [email or web address] [facility], [address] [place] [address], [facility] [address], LILLIANA Sepulveda, [address], 12/18/2024 09:33:05 testost erone, total, serum 2024 025 [email or web address] [facility], [address] [place] [address], [address], LILLIANA Sepulveda, [address], 12/18/2024 09:33:05 lh (lutein izing hormone ), serum 2024 025 [facility], [address] [place] [address], [address], LILLIANA Sepulveda, [address], 12/18/2024 09:33:05 FSH (follic le-stim ulating hormone ), serum 2024 025 [id number] [facility], [address] [place] [address], [address], LILLIANA Sepulveda, [address], 12/18/2024 09:33:05 dhea-dang lfate, serum 2024 025 [facility], [address] [place] [address], [address], LILLIANA Sepulveda, [address], 12/18/2024 09:33:05 prolact in, serum 2024 025 [email or web address] [facility], [address] [place] [address], [address], LILLIANA Sepulveda, [address], 12/18/2024 09:33:05 T4, free, serum 2024 025 [email or web address] [facility], [address] [place] [address], [address], LILLIANA Sepulveda, [address], 12/18/2024 09:33:05 T3, free, serum or plasma 2024 025 [email or web address] [facility], [address] [place] [address], [facility] [address], LILLIANA Sepulveda, [address], 12/18/2024 09:33:05 thyroid peroxid ase (tpo) Ab, serum 2024 025 [email or web address] [facility], [address] [place] [address], [address], LILLIANA Sepulveda, [address], 12/18/2024 09:33:05 estradi ol, serum 2024 025 [email or web address] [facility], [address] [place] [address], [address], LILLIANA Sepulveda, [address], 12/18/2024 09:33:06 pro BNP (pro B-type natriur etic peptide ), serum or plasma 2024 025 [email or web address] [facility], [address] [place] [address], [address], LILLIANA Sepulveda, [address], 12/11/2024 09:27:00 CMP, serum or plasma 2024 025 [facility], [address] [place] [address], [address], [place], [address], 12/11/2024 09:26:59 lipid panel, blood 2024 025 [email or web address] [facility], [address] [place] [address], [address], [place], [address], 12/11/2024 09:26:59 CBC 2024 025 [email or web address] [facility], [address] [place] [address], [address], [place], [address], 12/11/2024 09:26:59 unliste d lab - micronu trients , antioxi dants panel 2024 025 [email or web address] [facility], [address] [place] [address], [address], [place], [address], 12/11/2024 09:26:59 unliste d lab - micronu trients , B-vitam in panel 2024 025 [facility], [address] [place] [address], [address], [place], [address], 12/11/2024 09:26:59 unliste d lab - micronu trients , mineral /elemen t panel 2024 025 [facility], [address] [place] [address], [address], [place], [address], 12/11/2024 09:27:00 thyrotr opin, QN, serum or plasma 2024 025 [facility], [address] [place] [address], [address], [place], [address], 12/11/2024 09:27:00 vitamin D, 25-hydr oxy, total, serum 2024 025 [email or web address] [facility], [address], [place], [address], 12/11/2024 09:27:00 Referral mental health career development counselor or referra l 2024 025 [email or web address] [facility], [facility] E, [place], [address], 01/25/2025 14:10:58 endocri nology referra l 2024 025 [email or web address] Khadijah Wagner MD, [address] [place], [address], 01/22/2025 10:33:59 Procedures None recorde d. Surgeries None recorde d. Imaging home sleep study 2024 025 [facility], [address] [place], [address], 01/09/2025 13:44:17 US, liver 2024 025 [facility], [address] [place], [address], 01/21/2025 09:12:58 Medication Orders lorazep am 1 mg tablet 2024 025 [facility], [address] [address], [place], [address], 12/18/2024 13:21:48 levothy roxine 25 mcg tablet 2024 025 [facility], [address] [address], [place], [address], 12/18/2024 12:42:02 hydroch lorothi azide 25 mg tablet 2024 025 [facility], [address], [place], [address], 12/04/2024 16:19:41 buspiro ne 5 mg tablet 2024 025 [facility], [address], [place], [address], 01/01/2025 09:23:22 bupropi on HCl 75 mg tablet 2024 025 [facility], [address], [place], [address], 12/04/2024 16:28:07 Patient TargetsNo targets recorded. Patient Instructions Encounter Date Encounter Id Patient Instructions Last Modified By Organization Details Last Modified Time 11/27/2024 [id number] Call or return for questions or concerns. Not available 11/27/2024 16:08:52 12/04/2024 [id number] Call or return for questions or concerns. Not available 12/04/2024 16:08:54 12/18/2024 [id number] Call or return for questions or concerns. Not available 2024 10:31:30 01/07/2025 [id number] Call or return for questions or concerns. [...] mined by Jessica herrera Doris larry at [facility]. It has not been [...] more infor celeste gavin, visit https ://ww w.[facility] ih.ni h.gov /heal th/co enzym e-q10 /. Not Available [facility] [address] [place], [address], 12/19/2024 10:11:32 12/12/19 25 12/19/2024 MICRO NUTRI [...] deter mined by [facility] brenna hernandez, [place], [place]. It has not been clear ed or appro libia by the FDA. This assay has been valid ated pursu ant to the CLIA regul ation s and is used for clini orville purpo ses. Not Available [facility] [address] [place], [address], 12/19/2024 10:11:32 12/12/1912/19/2024 MICRO NUTRI ENTS, ANTIO [...] ://od s.od. nih.g ov/fa ctshe ets/V itami [place]-He althP dannfes libby l/ This test was devel oped and its mis tical perfo rmanc e lakisha cteri stics have been deter mined by [facility] [place]. It has not been clear ed or appro libia by the FDA. This assay has been valid ated pursu ant to the CLIA regul ation s and is used for clini orville purpo ses. Not Available [facility] [address] [place], [address], 12/19/2024 10:11:32 12/12/1912/19/2024 MICRO NUTRI ENTS, ANTIO XIDAN TS PANEL vitamin E, alpha tocopherol 17.4 mg/L 5.7-19 .9 Not Available [facility] [address] [place], [address], 12/19/2024 10:11:32 08/19/20 25 12/19/2024 MICRO NUTRI [...] mined by [facility] brenna Brizuela liborio, [place], [place]. It has not been clear ed or appro libia by the FDA. This assay has been valid ated pursu ant to the CLIA regul ation s and is used for clini orville purpo ses. Not Available [facility] [place] [address] [place], [address], 12/19/2024 10:11:32 12/12/19 25 12/19/2024 LIPID PANEL , STAND YAMEL cholesterol, total 176 mg/dL <200 normal Not Available [facility] [place] [address] [place], [address], 12/19/2024 10:11:33 12/12/19 25 12/19/2024 LIPID PANEL , STAND YAMEL HDL cholesterol 52 mg/dL > or = 50 normal Not Available [facility] [address] [place], [address], 12/19/2024 10:11:33 12/12/1912/19/2024 LIPID PANEL , STAND YAMEL triglyceride s 136 mg/dL <150 normal Not Available [facility] [address] [place], [address], 12/19/2024 10:11:33 12/12/1912/19/2024 LIPID PANEL , STAND [...] 9): 2061- 2068 (http ://ed ucati on.Qu estWescoal Group. com/f aq/FA Q164) Not Available [facility] [address] [place] [address], [place], [address], 12/19/2024 10:11:33 12/12/19 25 12/19/2024 LIPID PANEL , STAND YAMEL chol/HDLC ratio 3.4 (calc ) <5.0 normal Not Available [facility] [address] [place], [address], 12/19/2024 10:11:33 12/12/1912/19/2024 LIPID PANEL , STAND YAMEL non HDL cholesterol 124 mg/dL _(orville c) <130 normal For patie nts with diabe edson plus 1 major ASCVD risk facto r, treat ing to a non-H DL-C goal of <100 mg/dL (LDL- C of <70 mg/dL ) is consi dered a thera peuti c optio n. Not Available [address], [address], 12/19/2024 10:11:33 12/12/1912/19/2024 IRON, TOTAL iron, total 44 mcg/d L 40-190 normal Not Available [address], [address], 12/19/2024 10:11:34 12/12/1912/19/2024 COMPR EHENS ZOFIA METAB OLIC PANEL glucose 110 mg/dL 65-99 high Fasti ng refer ence inter edward For someo ne witho ut known diabe edson, a gluco se value betwe en 100 and 125 mg/dL is consi stent with predi abete s and shoul d be confi rmed with a follo w-up test. Not Available [address], [address], 12/19/2024 10:11:34 12/12/1912/19/2024 COMPR EHENS ZOFIA METAB OLIC PANEL urea nitrogen (BUN) 10 mg/dL 7-25 normal Not Available [address], [address], 12/19/2024 10:11:34 12/12/1912/19/2024 COMPR EHENS ZOFIA METAB OLIC PANEL creatinine 0.67 mg/dL 0.50-0 .99 normal Not Available [address], [address], 12/19/2024 10:11:34 12/12/19 25 12/19/2024 COMPR EHENS OZFIA METAB OLIC PANEL eGFR 110 mL/mi n/1.7 3m2 > or = 60 normal Not Available [address], [address], 12/19/2024 10:11:34 12/12/19 25 12/19/2024 COMPR EHENS ZOFIA METAB OLIC PANEL BUN/creatini ne ratio SEE NOTE: (calc ) 6-22 Not Repor trell: BUN and Creat inine are withi n refer ence range . Not Available [address], [address], 12/19/2024 10:11:34 12/12/19 25 12/19/2024 COMPR EHENS ZOFIA METAB OLIC PANEL sodium 138 mmol/ L 135-14 6 normal Not Available [address], [address], 12/19/2024 10:11:34 12/12/19 25 12/19/2024 COMPR EHENS ZOFIA METAB OLIC PANEL potassium 4.3 mmol/ L 3.5-5. 3 normal Not Available [address], [address], 12/19/2024 10:11:34 12/12/19 25 12/19/2024 COMPR EHENS ZOFIA METAB OLIC PANEL chloride 101 mmol/ L 98-110 normal Not Available [address], [address], 12/19/2024 10:11:34 12/12/19 25 12/19/2024 COMPR EHENS ZOFIA METAB OLIC PANEL carbon dioxide 28 mmol/ L 20-32 normal Not Available [address], [address], 12/19/2024 10:11:34 12/12/19 25 12/19/2024 COMPR EHENS ZOFIA METAB OLIC PANEL calcium 9.2 mg/dL 8.6-10 .2 normal Not Available [address], [address], 12/19/2024 10:11:34 12/12/19 25 12/19/2024 COMPR EHENS ZOFIA METAB OLIC PANEL protein, total 6.5 g/dL 6.1-8. 1 normal Not Available [address] [place], [address], 12/19/2024 10:11:34 12/12/19 25 12/19/2024 COMPR EHENS ZOFIA METAB OLIC PANEL albumin 3.9 g/dL 3.6-5. 1 normal Not Available [address], [address], 12/19/2024 10:11:34 12/12/19 25 12/19/2024 COMPR EHENS ZOFIA METAB OLIC PANEL globulin 2.6 g/dL_ (calc ) 1.9-3. 7 normal Not Available [address], [address], 12/19/2024 10:11:34 12/12/19 25 12/19/2024 COMPR EHENS ZOFIA METAB OLIC PANEL albumin/glob ulin ratio 1.5 (calc ) 1.0-2. 5 normal Not Available [address], [address], 12/19/2024 10:11:34 12/12/19 25 12/19/2024 COMPR EHENS ZOFIA METAB OLIC PANEL bilirubin, total 0.9 mg/dL 0.2-1. 2 normal Not Available [address], [address], 12/19/2024 10:11:34 12/12/19 25 12/19/2024 COMPR EHENS ZOFIA METAB OLIC PANEL alkaline phosphatase 94 U/L 31-125 normal Not Available [facility] [address], [address], 12/19/2024 10:11:34 12/12/19 25 12/19/2024 COMPR EHENS ZOFIA METAB OLIC PANEL AST 113 U/L 10-30 high Not Available [address], [address], 12/19/2024 10:11:34 12/12/1912/19/2024 COMPR EHENS ZOFIA METAB OLIC PANEL ALT 134 U/L 6-29 high Not Available [address], [address], 12/19/2024 10:11:34 12/12/19 25 12/19/2024 ESTRO GENS, TOTAL , IA estrogens, total, ia 252 pg/mL Refer ence Range s for Total Estro gen: Folli cular Phase : 51-60 1 Lutea l Phase : 87-11 94 Postm enopa usal: < or = 214 Not Available [address], [address], 12/19/2024 10:11:35 12/12/19 25 12/19/2024 CBC (INCL UDES DIFF/ PLT) white blood cell count 6.7 thous and/u L 3.8-10 .8 normal Not Available [address], [address], 12/19/2024 10:11:36 12/12/1912/19/2024 CBC (INCL UDES DIFF/ PLT) red blood cell count 4.44 emily on/uL 3.80-5 .10 normal Not Available [address], [address], 12/19/2024 10:11:36 12/12/1912/19/2024 CBC (INCL UDES DIFF/ PLT) hemoglobin 12.1 g/dL 11.7-1 5.5 normal Not Available [address], [address], 12/19/2024 10:11:36 12/12/19 25 12/19/2024 CBC (INCL UDES DIFF/ PLT) hematocrit 40.2 % 35.0-4 5.0 normal Not Available [address], [address], 12/19/2024 10:11:36 12/12/1912/19/2024 CBC (INCL UDES DIFF/ PLT) MCV 90.5 fL 80.0-1 00.0 normal Not Available [address], [address], 12/19/2024 10:11:36 12/12/1912/19/2024 CBC (INCL UDES DIFF/ PLT) MCH 27.3 pg 27.0-3 3.0 normal Not Available [address], [address], 12/19/2024 10:11:36 12/12/1912/19/2024 CBC (INCL UDES DIFF/ [...] nt's clini orville condi tion. Not Available [address], [address], 12/19/2024 10:11:36 12/12/1912/19/2024 CBC (INCL UDES DIFF/ PLT) RDW 15.5 % 11.0-1 5.0 high Not Available [address], [address], 12/19/2024 10:11:36 12/12/1912/19/2024 CBC (INCL UDES DIFF/ PLT) platelet count 268 thous and/u L 140-40 0 normal Not Available [address], [address], 12/19/2024 10:11:36 12/12/1912/19/2024 CBC (INCL UDES DIFF/ PLT) MPV 11.5 fL 7.5-12 .5 normal Not Available [address], [address], 12/19/2024 10:11:36 12/12/19 25 12/19/2024 CBC (INCL UDES DIFF/ PLT) absolute neutrophils 4717 cells /uL 1500-7 800 normal Not Available [address], [address], 12/19/2024 10:11:36 12/12/19 25 12/19/2024 CBC (INCL UDES DIFF/ PLT) absolute lymphocytes 1407 cells /uL 850-39 00 normal Not Available [address], [address], 12/19/2024 10:11:36 12/12/19 25 12/19/2024 CBC (INCL UDES DIFF/ PLT) absolute monocytes 348 cells /uL 200-95 0 normal Not Available [address], [address], 12/19/2024 10:11:36 12/12/19 25 12/19/2024 CBC (INCL UDES DIFF/ PLT) absolute eosinophils 188 cells /uL 15-500 normal Not Available [address], [address], 12/19/2024 10:11:36 12/12/19 25 12/19/2024 CBC (INCL UDES DIFF/ PLT) absolute basophils 40 cells /uL 0-200 normal Not Available [address], [address], 12/19/2024 10:11:36 12/12/19 25 12/19/2024 CBC (INCL UDES DIFF/ PLT) neutrophils 70.4 % normal Not Available [address], [address], 12/19/2024 10:11:36 12/12/1912/19/2024 CBC (INCL UDES DIFF/ PLT) lymphocytes 21.0 % normal Not Available [address], [address], 12/19/2024 10:11:36 12/12/19 25 12/19/2024 CBC (INCL UDES DIFF/ PLT) monocytes 5.2 % normal Not Available [address], [address], 12/19/2024 10:11:36 12/12/1912/19/2024 CBC (INCL UDES DIFF/ PLT) eosinophils 2.8 % normal Not Available [address], [address], 12/19/2024 10:11:36 12/12/19 25 12/19/2024 CBC (INCL UDES DIFF/ PLT) basophils 0.6 % normal Not Available [address], [address], 12/19/2024 10:11:36 12/12/1912/19/2024 THYRO ID PEROX IDASE ANTIB ODIES thyroid peroxidase antibodies 1 IU/mL <9 Not Available [address], [address], 12/19/2024 10:11:36 12/12/1912/19/2024 DHEA SULFA TE DHEA sulfate 71 mcg/d L 15-205 normal Not Available [address], [address], 12/19/2024 10:11:37 12/12/1912/19/2024 FOLAT E, SERUM folate, serum 6.1 NG/mL normal Refer ence Range Low: <3.4 Borde rline : 3.4-5 .4 Azucena l: >5.4 Not Available [address], [address], 12/19/2024 10:11:38 12/12/19 25 12/19/2024 FSH FSH 7.5 mIU/m L normal Refer ence Range Folli cular Phase 2.5-1 0.2 Mid-c ycle Peak 3.1-1 7.7 Lutea l Phase 1.5- 9.1 Postm enopa usal 23.0- 116.3 Not Available [facility] [address], [address], 12/19/2024 10:11:39 12/12/19 25 12/19/2024 LH LH 3.8 mIU/m L normal Refer ence Range Folli cular Phase 1.9-1 2.5 Mid-C ycle Peak 8.7-7 6.3 Lutea l Phase 0.5-1 6.9 Postm enopa usal 10.0- 54.7 Not Available [facility] [address], [address], 12/19/2024 10:11:39 12/12/19 25 12/19/2024 PROGE STERO NE progesterone <0.5 NG/mL normal Refer ence Range s Femal e Folli cular Phase < 1.0 Lutea l Phase 2.6-2 1.5 Post menop ausal < 0.5 Pregn rita 1st Trime ster 4.1-3 4.0 2nd Trime ster 24.0- 76.0 3rd Trime ster 52.0- 302.0 Not Available [facility] [address], [address], 12/19/2024 10:11:40 12/12/19 25 12/19/2024 PROLA CTIN prolactin 6.8 NG/mL normal Refer ence Range Femal es Non-p regna nt 3.0-3 0.0 Pregn ant 10.0- 209.0 Postm enopa usal 2.0-2 0.0 Not Available [facility] [address], [address], 12/19/2024 10:11:41 12/12/1912/19/2024 T4, FREE T4, free 1.3 NG/dL 0.8-1. 8 normal Not Available [facility] [address] [place], [address], 12/19/2024 10:11:42 12/12/19 25 12/19/2024 TSH TSH 4.91 mIU/L high Refer ence Range > or = 20 Years 0.40- 4.50 Pregn rita Range s First trime ster 0.26- 2.66 Secon d trime ster 0.55- 2.73 Third trime ster 0.43- 2.91 Not Available [facility] [address] [place] [address], [address], 12/19/2024 10:11:43 12/12/1912/19/2024 VITAM IN B12 vitamin [...] pg/mL will have sympt oms. Not Available [facility] [address] [place], [address], 12/19/2024 10:11:44 12/12/1912/19/2024 ESTRA DIOL estradiol 48 [...] is recom minh d (orde r code 21039 ). Moira e note: patie nts being [...] s. [facility] order code 63652 -Estr adiol , Ultra sensi tive LC/MS /MS demon strat es negli gible cross react ivity with fulve stran t. Not Available [facility] [address] [place], [address], 12/19/2024 10:11:44 12/12/1912/19/2024 T3, FREE T3, free 3.0 pg/mL 2.3-4. 2 normal Not Available [facility] [address] [place], [address], 12/19/2024 10:11:45 12/12/1912/19/2024 B TYPE NATRI URETI [...] ol. 2002; 40:97 6-982 . Not Available [facility] [address] [place], [address], 12/19/2024 10:11:46 12/12/1912/19/2024 VITAM IN D,25- [place],TO [...] /MS is recom minh d: order code 74040 (ria ents >2yrs ). See Note 1 Note 1 For addit ional infor moira meraz refer to http: //[facility] farhad Avery stDia gnost ics.c om/fa q/FAQ 199 (This link is being provi ded for infor celeste farah/ rosanne cook purpo ses only. ) Not Available [facility] [address] [place], [address], 12/19/2024 10:11:47 12/12/1912/19/2024 MAGNE SIUM, RBC magnesium, [...] purpo ses. F med fusio n [address] [facility] [address] [facility] [address] [phone] Sheba Bell MD, PhD Not Available [facility] [address] [place], [address], 12/19/2024 10:11:48 Result Notes None recorded. Problems Name Problem SNOMED Code Status Onset Date Resolution Date Notes Provider Name and Address Organization Details Recorded Time Axillary lymphadenop athy [id number] Rachel CORONEL, [address], [address] , [facility] 15:46:59 Deep venous thrombosis of upper extremity [id number] Rachel CORONEL, [address], [facility] 15:46:59 Chronic obstructive pulmonary disease [id number] Rachel CORONEL, [address] , [facility] 15:46:59 History of supraventri cular tachycardia [id number] 4101 Rachel CORONEL, [address] , [facility] 15:46:59 Amenorrhea [id number] Rachel CORONEL, [address] , [facility] 15:46:59 Secondary amenorrhea [id number] Rachel CORONEL, [place] [address] , [facility] 15:46:59 Past history of section [id number] Rachel CORONEL, [address] , [facility] 15:46:59 History of operative procedure on foot [id number] 9103 Rachel CORONEL, [address] [address], [facility] 15:46:59 Pleurisy [id number] Rachel CORONEL, [address], [address], [facility] 15:46:59 Rheumatoid arthritis of knee [id number] Rachel CORONEL, [address], [address], [facility] 15:46:59 Seropositiv e rheumatoid arthritis [id number] Rachel CORONEL, [address], [address] , [facility] 15:46:59 Weight increased [id number] Rachel CORONEL, [address], [address] , [facility] 15:46:59 Occlusion of artery [id number] Rachel CORONEL, [address], [address] , [facility] 15:46:59 Chest pain [id number] Rachel CORONEL, [place] [address] , [facility] 14:57:38 Patient encounter status [id number] Rachel CORONEL [place] [address] , [facility] 14:57:38 Thyroid stimulating hormone level above reference range [id number] Rachel CORONEL, [place] [address] , [facility] 5 15:46:59 Depressive disorder [id number] Rachel CORONEL, [place] [address], [facility] 5 15:46:59 Allergic reaction to animal [id number] Rachel CORONEL, [place] [address], [facility] 5 15:46:59 Environment al allergy [id number] Rachel CORONEL, [place] [address], [facility] 5 15:46:59 History of tonsillecto [id number] Rachel CORONEL, [place] [address], [facility] 5 15:46:59 Abnormal uterine bleeding [id number] Rachel CORONEL, [place] [address], [facility] 5 15:46:59 Taking high risk medication [id number] 07 Rachel CORONEL, [place] [address], [facility] 5 15:46:59 Anxiety [id number] Rachel CORONEL, [place] [address], [facility] 5 14:57:38 Oligomenorr hea [id number] Rachel CORONEL, [place] [address], [facility] 5 15:47:00 Pain of breast 72137601 Active CEE CORONEL, [address], [address], [facility] 5 15:47:00 Dyspnea on exertion 47635224 Active CEE CORONEL, [address], [address], [facility] 5 15:47:00 Diarrhea 65889450 Active CEE CORONEL, [address], [address], [facility] 5 15:47:00 Costal chondritis 86940927 Active [facility], [address], [address], [facility] 5 15:47:00 Obstructive sleep apnea syndrome 45695838 Active [facility], [address], [address], [facility] 15:47:00 COVID-19 641982290 Active [facility], [address], [address], [facility] 15:47:00 Ex-smoker 2520187 Active [facility], [address], [address], [facility] 15:47:00 Left ventricular ejection fraction decreased 019780481 Active [facility], [address], [address] [place] [address] 5, [facility] 5 15:47:00 Anxiety attack 499987510 Active [facility], [address], [address], [facility] 5 14:57:08 Enzyme level - finding 054127357 Active [facility], [address], [address], [facility] 5 14:57:38 History of cholecystec michelle 604229055 Active 2018 [facility], [address], [address], [facility] 5 15:46:59 Restrictive lung disease 68484124 Active 2023 AMY moreno [facility] 4 10:42:04 Supraventri cular tachycardia 8176312 Active 2023 [facility], [address] [address], [address], [facility] 5 14:57:38 Gastroesoph ageal reflux disease without esophagitis 959780660 Active 2023 AMY moreno [facility] 4 10:42:22 Iron deficiency anemia 23565836 Active 2023 AMY moreno [facility] 4 10:42:38 Mixed anxiety and depressive disorder 128128140 Active 2023 AMY moreno [facility] 4 10:42:51 Vitamin D deficiency 97434603 Active 2023 AMY moreno [facility] 4 10:43:05 Problem Notes None recorded. Procedures Surgical History Date Name Laterality Status Provider Name and Address Organization Details Recorded Time 11/08/19 24 mammography completed [facility] 11/11/2023 18:42:32 06/09/19 screening mammography completed [facility] 10/11/2023 10:41:26 Tubal Ligation completed [facility] 06/09/2023 13:17:22 Tonsillectomy completed [facility] 06/09/2023 13:17:27 Cholecystectomy completed [facility] 06/09/2023 13:17:46 Imaging Results None recorded. Procedure Notes None recorded. Medical Equipment None Reported. Allergies Allergen ID Allergen Name Allergen Category Reaction Reaction Severity Criticality Documentation Date Start Date Code Code System Note Provider Name and Address Organization Details Recorded Time 70971 Bactrim medicatio n hives moderate high 11/20/2022 92687 9 RxNorm SOPHIA [facility] 5 14:24:41 44431 sulfameth oxazole medicatio n Not available Not available Not available 11/27/20242024 25953 RxNorm CEE CORONEL, [address], [address], [facility] 5 14:57:27 22175 trimethop rim medicatio n Not available Not available Not available 11/27/20242024 95858 RxNorm CEE CORONEL, [facility] [address] [place] [address], [address], [facility] 5 14:57:27 89450 bupropion Not available anxiety severe Not available 11/27/20242024 77241 RxNorm CEE CORONEL, [employer] [address] [place], [address] , [facility] 14:58[facility]12 Medications Name Sig Start Date Stop [...] Updated DateTime 5 165.1 cm 73.9 kg/m2 903098. 01 g 97 % 97 % 100 /min 26 /min 138/86 mm[Hg] AMY CORTES [facility] 5 15:31:56 Date Recorded Body height Body mass index (BMI) Body weight Oxygen saturation Oxygen saturation in Arterial blood by Pulse oximetry Heart rate Respiratory rate Systolic And Diastolic Provider Name and Address Organization Details Last Updated DateTime 5 165.1 cm 73.6 kg/m2 096053. 83 g 97 % 97 % 84 /min 24 /min 142/80 mm[Hg] AMY CORTES [facility] 5 15:51:31 Date Recorded Body height Oxygen saturation Oxygen saturation in Arterial blood by Pulse oximetry Heart rate Respiratory rate Provider Name and Address Organization Details Last Updated DateTime 5 165.1 cm 98 % 98 % 82 /min 22 /min AMY CORTES [facility] 5 11:45:01 Date Recorded Body height Body mass index (BMI) Body weight Oxygen saturation Oxygen saturation in Arterial blood by Pulse oximetry Heart rate Body temperature Systolic And Diastolic Provider Name and Address Organization Details Last Updated DateTime 5 165.1 cm 73.6 kg/m2 624166. 83 g 98 % 98 % 84 /min 97.9 [degF] 136/86 mm[Hg] SOPHIA CURTISOVER [facility] 5 14:37:11 Social History Question Answer Notes LastModified by Organizat ion Details LastModified Time Tobacco Smoking Status Former Smoker Quit age 33 AMY CORTES [facility] 06/09/2023 13:13:29 When Did You Quit Smoking? 11-15yearssi kamar [email or web address] Information not available 01/07/2025 What Was The Date Of Your Most Recent Tobacco Screening? 01/07/2025 Information not available 01/07/2025 What Is Your Current Pack Years? 10-19packyeodilon rs Information not available 01/07/2025 What Is Your Relationship Status? [email or web address] Information not available 06/09/2023 At What Age Did You Start Smoking Tobacco? 17 Information not available 01/07/2025 How Much Tobacco Do You Smoke? No Information not available 01/07/2025 How Many Years Have You Smoked Tobacco? 16 Information not available 01/07/2025 Sex: Unknown Functional Status Question Answer Note LastModified by Organizat ion Details LastModified Time Do you use any illicit or recreational drugs? No [email or web address] Information not available 06/09/2023 Do you or have you ever used any other forms of tobacco or nicotine? No Information not available 01/07/2025 What is your level of alcohol consumption? None [email or web address] Information not available 06/09/2023 Are you currently employed? No [email or web address] Information not available 06/09/2023 Are you able to care for yourself independently? Yes [email or web address] Information not available 06/09/2023 Do you or have you ever used any nicotine-free cigarettes, vape, or chewing tobacco? No Information not available 01/07/2025 Mental Status None recorded. Family History Relationship Description Onset Age of this Age Resolved Age Notes LastModified by Organization Details LastModified Time Mother Essential hypertension [email or web address] Not available 13:14:40 Mother Asthma [email or web address] Not available 10/11/2023 10:38:11 Mother Myocardial infarction [email or web address] Not available 09/23 10:39:53 Father Drug abuse Meth addict ion/de ceased age 64 [email or web address] Not available 06/09/2023 13:16:44 Father Type 2 diabetes mellitus Not available 06/09 13:17:09 Paternal Grandfather Type 2 diabetes mellitus Not available 10/10 10:39:11 Paternal Grandfather Essential hypertension [email or web address] Not available 10:38:40 Maternal Grandmother Malignant neoplasm of uterus Not available 10/10 10:38:24 Paternal Grandmother Essential hypertension Not available 10:38:51 Paternal Grandmother Coronary arterioscler osis [email or web address] Not available 10/10 10:40:07 Brother Type 2 diabetes mellitus [email or web address] Not available 10/10 10:39:17 Maternal Grandfather Myocardial infarction [email or web address] Not available 09/23 10:39:53 Medical History Condition Response Anxiety Disorder Y Hypothyroidism Y Depression Y Gynecological HistoryNo gynecological history recorded. Obstetrics History GPAL:G 0 P 0 0 0 0 Immunizations Vaccine Type Date Status Note Provider Nam e and Address Organization Details Recorded Time Td (adult), 2 Lf tetanus toxoid, preservative free, adsorbed 5 completed CEE CORONEL, [address], [address], [facility] 06/09/2023 13:35:36 Influenza, split virus, trivalent, preservative 4 dawood CORONEL, [address], [address], [facility] 06/09/2023 13:35:36 Influenza, split virus, trivalent, preservative 5 dawood CORONEL, [address], [address], [facility] 06/09/2023 13:35:36 Influenza, split virus, trivalent, preservative 0 dawood CORONEL, [address], [address], [facility] 06/09/2023 13:35:36 Influenza, split virus, trivalent, preservative 3 dawood CORONEL, [address], [address], [facility] 06/09/2023 13:35:36 Td(adult) unspecified formulation 2 completed ANTONY NICHOLS [address] [place] [address], [phone], [facility] [place] 06/09/2023 13:35:36 Past Encounters Encounter ID Performer Location Encounter Start Date Encounter Closed Date Diagnosis/Indication Diagnosis SNOMED-CT Code Diagnosis ICD10 Code Diagnosis IMO Codes Diagnosis Note [id number] ANTONY NICHOLS [facility] ([facility]) [address] [place] [phone] 06/09/2023 12:21:11 06/09/2023 13:46:28 Mixed anxiety and depressive disorder 465848402 F41.8 Adult heal th examination 378464855 Z00.00 Recent was seen for her well woman visit with Dr. Estrella and he has referred her to see endocrinol ogy because her thyroid level was off. Allergy to food 40565196 1 T78.1XXA Diarrhea, bloating, excessive gas, belly pain. [id number] ANTONY NICHOLS [facility] ([facility]) [address] [place] [id number] 09/08/2023 13:50:29 09/08/2023 14:49:46 Moderate recurrent major depression 89072813 F33.1 Screening mammography 24 219994 Z12.31 [id number] NATONY NICHOLS [facility] ([facility]) [address] [place] [id number] 10/11/2023 13:55:16 10/11/2023 15:10:28 Depressive disorder 27806381 F32.9 She has not been able to set up counseling yet. [id number] CEE CORONEL [employer] [facility] ([facility]) [address] [place] [phone] 11/10/2023 14:23:17 11/10/2023 15:18:38 Mixed anxiety and depressive disorder 683356988 F41.8 [id number] CEE CORONEL [employer] [facility] ([facility]) [address] [place] [id number] 11/13/2024 10:14:19 11/13/2024 11:28:35 Depressive disorder 88146260 F33.1 Chronic diarrhea 0938536 09 K52.9 30854 Reports she has diarrhea now immediatel y after she eats. She feels nauseated after eating and then tired after having a bowel movement. Fatigue 57614670 R53.83 0221166 Tired a lot. [id number] CEE HOMER [facility] ([facility]) [address] [place] [id number] 11/27/2024 14:59:09 11/27/2024 16:28:47 Depressive disorder 49689808 F33.1 Generalize d anxiety disorder 34918786 F41.1 786904 Continue buspirone. [id number] CEE HOMER [facility] ([facility]) [address] [place] [phone] 12/04/2024 14:39:19 12/04/2024 17:00:32 Generalized anxiety disorder 96203401 F41.1 882323 Continue buspirone. Moderate r ecurrent major depression 65194189 F33.1 Paroxetine made her feel too flat. Did not tolerate Wellbutrin . Muscle pain 06934182 M79 .10 97626 Edema of l ower extremity 867439061 R60.0 81231 [id number] CEE HOMER [facility] ([facility]) [address] [place] [id number] 12/11/2024 09:18:31 12/14/2024 13:05:38 Oligomenorrhea 21109674 N91.5 Secondary amenorrhea 156 714627 N91.1 Muscle pain 46553426 M79 .10 491188 [id number] CEE HOMER [facility] ([facility]) [address] [place] [id number] 12/18/2024 11:20:27 12/27/2024 07:53:51 Acquired hypothyroidism 431734585 E03.9 58589 Panic disorder 938627827 F41.0 89610 Moderate r ecurrent major depression 83541908 F33.1 Paroxetine made her feel too flat. Did not tolerate Wellbutrin . [id number] ANTONY NICHOLS [facility] ([facility]) [address] [place] [address] 01/07/2025 13:55:34 01/07/2025 15:31:28 Mixed anxiety and depressive disorder 102212527 F41.8 Doing well with the Buspirone. Liver enzy mes level above reference range 933266222 R74.8 039222 Snoring 60404918 R06.83 85292 Chronic insomnia 0962095 04 F51.04 363095 She will take melatonin as needed. Health [...] Janel Goldsmith 01/07/2025 1 [place] [id number] Josette Goldsmith [id number] Josette Goldsmith 01/07/2025 [place] [facility] Josette Goldsmith [id number] Josette Goldsmith Notes Date Note Type Note [...] noted in the HPI ANTONY NICHOLS [address] [place], [address], [facility] [place] 11/30/2024 15:18:11 5 text/html Anxiety/DepressionReporte d by PatientHPIFor severity, patient reportsmood worseandinterference with activities of daily livingbut reportsdenies suicidal ideations. For context, patient reportsmajor life stressorsandfamily problems. For associated symptoms, patient reportsdepression,sleep disturbances,sleeping more (hypersomnia),low self-esteem,despair/hopel essness,social withdrawal,decreased effectiveness/productivit y,stomach cramps,diarrhea,decreased energy, andfatigue(nausea, vomiting).ROS as noted in the [facility] CEE CORONEL, [address], [address], [facility] 12/04/2024 16:51:43 5 text/html Anxiety/DepressionReporte d by PatientHPIFor severity, patient reportsmood worseandinterference with activities of daily livingbut reportsdenies suicidal ideations. For context, patient reportsmajor life stressorsandfamily problems. For associated symptoms, patient reportsdepression,sleep disturbances,sleeping more (hypersomnia),low self-esteem,despair/hopel essness,social withdrawal,decreased effectiveness/productivit y,stomach cramps,diarrhea,decreased energy, andfatigue(nausea, vomiting).ROS as noted in the [facility] CEE CORONEL, [address], [address], [facility] 01/01/2025 17:16:32 5 text/html Anxiety/DepressionReporte d by PatientHPIFor severity, patient reportsinterference with activities of daily livingbut reportsdenies suicidal ideationsandable to maintain relationships. For context, patient reportsmajor life stressorsandfamily problems. For associated symptoms, patient reportsdepression,sleep disturbances,sleeping more (hypersomnia),low self-esteem,despair/hopel essness,social withdrawal,decreased effectiveness/productivit y,stomach cramps,diarrhea,decreased energy, andfatigue(nausea, vomiting).ROS as noted in the [facility] CEE CORONEL[address], [address], [facility] - [facility], [place] 01/07/2025 15:23:24 OBGyn Episode No OBEpisode recorded.
--- OUTSIDE RECORDS SUMMARY | 2025-01-27 13:56 | XMS_ITS | Encounter Summary ---
Author Organization [facility] Address [address] [place] [address] Care Team Providers Care Induction Machine Operator Name Role Phone Unavailable Primary Care Provider Unavailabl e Encounter Details Date Type Department Care Team (Late st Contact Info) Description 12/10/2004 Emergency [facility] Emergency Department [address] 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 Gender Identity Not on file Sexual Orientation [...] CHEMISTRY ORDERABLES Final Result Performing Organization Address [facility] Phone Number INTERFACE SYSTEM Refer to clinic/hospital department * LIPASE (12/11/2004 5:30 AM CDT) LIPASE 80 23 - 300 IU/L INTERFACE SYSTEM 12/11/2004 5:30 AM CDT Heriberto Jacobs DO CHEMISTRY ORDERABLES Final Result Performing Organization Address [facility] Phone Number INTERFACE SYSTEM Refer to clinic/hospital department * AMYLASE (12/11/2004 5:30 AM CDT) AMYLASE 32 30 - 120 IU/L INTERFACE SYSTEM 12/11/2004 5:30 AM CDT us Heriberto Jacobs DO CHEMISTRY ORDERABLES Final Result Performing Organization Address [facility] Phone Number INTERFACE SYSTEM Refer to clinic/hospital [...] ORDERABLES Final Res ult Performing Organization Address [facility] Phone Number INTERFACE SYSTEM Refer to clinic/hospital department * ICTOTEST (12/11/2004 3:15 AM CDT) ICTO Negative Negative INTERFACE SYSTEM 12/11/2004 3:15 AM CDT us Heriberto Lepes DO URINE ORDERABLES Final Res ult Performing Organization Address [facility] Phone Number INTERFACE SYSTEM Refer to clinic/hospital department * ACETONE QUALITATIVE, URINE (12/11/2004 3:15 AM CDT) KETONES UA Negative Negative INTERFACE SYSTEM 12/11/2004 3:15 AM CDT us Heriberto [place] Jacobs DO URINE ORDERABLES Final Res ult Performing Organization Address [facility] Phone Number INTERFACE SYSTEM Refer to clinic/hospital [...]
--- OUTSIDE RECORDS SUMMARY | 2025-01-27 13:56 | XMS_ITS | Clinical Summary ---
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
[2025-01-27 13:58] VITALS: BP 159/87; PULSE 87; RESP 16; TEMP 36.8; O2SAT 99; BMI 71.7
--- NOTE | 2025-01-27 14:19 | W.ED.FEMALGU ---
HPI - Female Genitourinary General: Chief complaint: Vaginal Bleeding Stated complaint: period cramps and bleeding heavly Time Seen by Provider: 01/27/25 14:06 History of Present Illness: Patient is a 44-year-old female presents due to menorrhagia. Patient states severe amount of bleeding per vagina. She has large golf ball size clots, going through a pad/an hour. This has been ongoing and worsening over the last 2-1/2 weeks. This was worse today, and associated with lightheadedness, dizziness, nausea. Patient believe religion early due to ongoing concerns and complaints. Associated symptoms: Reports abdominal pain and nausea; Deny headache(s) Related Data Home Medications ?Medication ?Instructions ?Recorded ?Confirmed bupropion HCl 75 mg tablet 75 mg PO TID 12/20/24 12/20/24 buspirone 5 mg tablet 7.5 mg PO TID 12/20/24 12/20/24 cholecalciferol (vitamin D3) 50 50 mcg PO DAILY 12/20/24 12/20/24 mcg (2,000 unit) tablet (Vitamin D3) cyanocobalamin (vitamin B-12) 50 50 mcg PO DAILY 12/20/24 12/20/24 mcg tablet (Vitamin B-12) hydrochlorothiazide 25 mg tablet 25 mg PO DAILY PRN swelling 12/20/24 12/20/24 levothyroxine 25 mcg tablet 25 mcg PO DAILY 12/20/24 12/20/24 lorazepam 1 mg tablet 1 mg PO TID PRN Anxiety 12/20/24 12/20/24 magnesium 250 mg tablet 250 mg PO DAILY 12/20/24 12/20/24 rhubarb root extract 4 mg tablet 4 mg PO DAILY 12/20/24 12/20/24 (Estroven Complete Menopause Relief) vitamin A 2,400 mcg capsule 2,400 mcg PO DAILY 12/20/24 12/20/24 vitamin B complex 1 tab PO DAILY 12/20/24 12/20/24 Previous Rx's ?Medication ?Instructions ?Recorded cefdinir 300 mg capsule 300 mg PO BID 10 days #20 caps 01/27/25 ondansetron 4 mg disintegrating 4 mg PO Q8H PRN nausea and 01/27/25 tablet vomiting 4 days #14 tabs tranexamic acid 650 mg tablet 1,300 mg (2 x 650 mg) PO Q8H 5 10/05/25 days #30 tabs Allergies Allergy/AdvReac Type Severity Reaction Status Date / Time sulfamethoxazole (From Allergy ALGY-Rash Verified 12/20/24 14:50 Bactrim) trimethoprim (From Bactrim) Allergy ALGY-Rash Verified 12/20/24 14:50 bupropion (From Wellbutrin) AdvReac ADR-Anxiety Verified 12/20/24 14:50 Review of Systems General: Reports: 10 or more systems reviewed and unremarkable except in HPI and below Const: Denies: fever(s) or chills Eyes: Denies: change in vision or blurry vision ENMT: Denies: throat pain or mouth pain Card: Denies: chest pain or palpitations Resp: Denies: dyspnea or productive cough GI: Reports: abdominal pain and nausea; Denies: vomiting : Reports: flank pain (right) Musc: Denies: neck pain or back pain Neuro: Denies: headache(s) or numbness in extremities Psych: Denies: anxiety or depression PFS ED PFSH: Medical History (Updated 01/27/25 @ 16:06 by AHMET Mares) SVT (supraventricular tachycardia) Immunization counseling High risk medication use Rheumatoid arthritis with rheumatoid factor No pertinent past medical history neg hx: htn,dm,thyroid,dvt/pe Depression Anxiety Surgical History S/P tonsillectomy H/O foot surgery (~1991) left-- fracture in growth plate Previous section (~2010) S/P cholecystectomy (~01/2019) Family History Grandmother Diabetes Hypertension Hyperlipidemia Stroke Paternal grandmother Heart disease Maternal grandmother Uterine cancer, Onset Age: 50 MGM Grandfather Diabetes Hypertension Hyperlipidemia Stroke Paternal grandfather Heart disease Paternal grandfather Maternal grandfather Father Diabetes Brother Diabetes Family/Other Diabetes Maternal aunt Breast cancer Paternal Cousin--dx'd in her early 30s Mother Hypertension Heart disease Family history of thyroid problem Other CAD (coronary artery disease) Rheumatoid arthritis Denies family history of Colon cancer Ovarian cancer Lupus Chronic kidney disease (CKD) Lung disease Cancer Social History Smoking and tobacco/nicotine status: never used tobacco/nicotine Substance/Drug Use: never Additional social history: - Tobacco use: Denies Alcohol use: Denies Drug use: Denies Do you think of yourself as: Straight/Heterosexual Current gender identity: Female Physical Exam Const: COMMON NORMALS: no acute distress, average body habitus and patient oriented x3 HENMT: COMMON NORMALS: normocephalic and atraumatic HEAD & SCALP: normocephalic and atraumatic Eye: COMMON NORMALS: Equal, round and reactive pupils present and EOMs intact bilaterally PUPIL: Yes Equal, round and reactive pupils present Neck/C-Spine: COMMON NORMALS: full ROM and no lymphadenopathy Lymph: LYMPHATIC: no lymphadenopathy noted Chest: COMMONS NORMALS: normal inspection of the chest and normal palpation of entire chest wall Resp: COMMON NORMALS: normal respiratory effort, No retractions and clear to auscultation bilaterally AUSCULTATION: clear to auscultation bilaterally Cardio: COMMON NORMALS: regular rate and regular rhythm RATE: regular rate RHYTHM: regular rhythm GI: COMMON NORMALS: Normal to inspection, nondistended, normoactive bowel sounds present, Soft to palpation, non-tender and No hepatosplenomegaly present PALPATION: Yes Soft to palpation and Yes No hepatosplenomegaly present : BLADDER/KIDNEY EXAM: Yes CVA tenderness on the right and Yes other Back/Pelvis: GENERAL BACK: Yes CVA tenderness Extremity: COMMON NORMALS: normal to inspection, full ROM and capillary refill normal Neuro: COMMON NORMALS: patient oriented x3 Course Vital Signs: Vital signs: Vital Signs Temperature 98.2 F 01/27/25 13:58 Pulse Rate 78 01/27/25 15:12 Respiratory Rate 16 01/27/25 13:58 Blood Pressure 144/87 01/27/25 15:12 Pulse Oximetry 98 01/27/25 15:12 Oxygen Delivery Me thod Room Air 01/27/25 14:44 [facility] - Female Medical Decision Making Patient is 44-year-old female with severe menorrhagia, worse today with associated peripheral symptoms of lightheadedness, dizziness, and nausea. Will check CBC, urinalysis. Discussed options with patient including hysterectomy, endometrial ablation due to her severe issues. Patient will need follow-up with gynecology. Called patient to update her on the pyuria. Cefdinir sent to the pharmacy. All of her questions answered to her satisfaction. She has started TXA. Medical Records I reviewed the patient's medical records. Lab Data I reviewed the patient's lab results. 01/27/25 14:23 Laboratory Results WBC 7.45 10^3/uL (3.29-11.43) 01/27/25 14:23 RBC 4.31 10^6/uL (3.85-5.65) 01/27/25 14:23 Hgb 11.70 g/dL (11.27-16.99) 01/27/25 14:23 Hct 38.3 % (36-47) 01/27/25 14: MCV 88.9 fl (85-98) 01/27/25 14: MCH 27.1 pg (27-33) 01/27/25 14: MCHC 30.5 g/dL (30-55) 01/27/25 14: RDW 15.0 % (12.1-15.1) 01/27/25 14:23 Plt Count 246 10^3/cmm (157-399) 01/27/25 14:23 MPV 11.3 fL (7.4-10.4) H 01/27/25 14:23 Neut % (Auto) 73.2 % 01/27/25 14:23 Lymph % (Auto) 15.7 % 01/27/25 14:23 [place] % (Auto) 8.2 % 01/27/25 14:23 Eos % (Auto) 2.1 % 01/27/25 14:23 Baso % (Auto) 0.4 % 01/27/25 14:23 Neut # (Auto) 5.45 10^3/uL (1.8-7.7) 01/27/25 14:23 Lymph # (Auto) 1.2 10^3/uL (0.8-4.8) 01/27/25 14:23 [place] # (Auto) 0.6 10^3/uL (0.2-0.9) 01/27/25 14:23 Eos # (Auto) 0.2 10^3/uL (0.0-0.8) 01/27/25 14:23 Baso # (Auto) 0.0 10^3/uL (0.0-0.1) 01/27/25 14: Nucleated RBC % (auto) 0 % 01/27/25 14: Nucleated RBCs # 0.0 /100WBC 01/27/25 14: Urine Color Red (Yellow) A 01/27/25 14: Urine Appearance Turbid (CLEAR) A 01/27/25 14: Urine pH 5 (5-7) 01/27/25 14: Ur Specific [place] 1.020 (1.005-1.030) 01/27/25 14: Urine Protein 3+ (Negative) H 01/27/25 14: Urine Glucose (UA) Norm (Normal) 01/27/25 14: Urine Ketones 1+ (Negative) H 01/27/25 14: Urine Blood 3+ (Negative) H 01/27/25 14: Urine Nitrate Positive (Negative) A 01/27/25: Urine Bilirubin Neg (Negative) 01/27/25 14: Urine Urobilinogen 1 mg/dL (Negative) H 01/27/25 14: Ur Leukocyte Esterase 1+ (Negative) H 01/27/25 14:25 Urine RBC >100 /hpf (0-2) H 01/27/25 14:25 Urine WBC 0-4 /hpf (0-5) H 01/27/25 14:25 Ur Squamous Epith Cells 0-4 /hpf (0-5) H 01/27/25 14: Amorphous Sediment Not Reportable 01/27/25 14: Urine Bacteria Trace /hpf (NONE) 01/27/25 14: No radiology studies performed this visit Discharge Plan Discharge Patient Disposition: Home Clinical Impression: Menometrorrhagia, Pyuria Condition: Stable Prescriptions: New tranexamic acid 650 mg tablet 1,300 mg PO Q8H 5 Days Qty: 30 0RF ondansetron 4 mg tablet,disintegrating 4 mg PO Q8H PRN (Reason: nausea and vomiting) 4 Days Qty: 14 0RF cefdinir 300 mg capsule 300 mg PO BID 10 Days Qty: 20 0RF No Action buspirone 5 mg tablet 7.5 mg PO TID vitamin A 2,400 mcg Capsule 2,400 mcg PO DAILY Vitamin B-12 50 mcg Tablet 50 mcg PO DAILY bupropion HCl 75 mg tablet 75 mg PO TID vitamin B complex Tablet 1 tab PO DAILY magnesium 250 mg Tablet 250 mg PO DAILY hydrochlorothiazide 25 mg tablet 25 mg PO DAILY PRN (Reason: swelling) lorazepam 1 mg Tablet 1 mg PO TID PRN (Reason: Anxiety) cholecalciferol (vitamin D3) [Vitamin D3] 50 mcg (2,000 unit) Tablet 50 mcg PO DAILY Estroven Cmplt Menopause Rlf 4 mg Tablet 4 mg PO DAILY levothyroxine 25 mcg tablet 25 mcg PO DAILY Discharge Orders: Discharge ED (Routine); Ordered 01/27/25 Ordered By: Francine Paz Referrals: Shannon Beal FNP [Primary Care Provider, Unknown] Rosalino Moody MD [Physician, SCIENCE FACULTY MEMBER] - 7-10 days Discharge Diet: Usual diet Discharge Activity: Resume usual activity Patient Instructions: Menorrhagia (ED), Patient Portal & Carolyn Instructions Activity Restrictions/Additional Instructions: - Return to ED if you have increasing symptoms or need to be reevaluated - Follow-up with allied health professional. You have a referral to Dr. Moody in the computer - The tranexamic acid has been sent to the pharmacy for abnormal uterine bleeding. This is a temporary fix. Maximum amount of time you can utilize this is 5 days in a row. Please obtain from [facility] today. - Zofran was sent to the pharmacy. This is for nausea Print Language: Korean Coding Level of Care Code ED Mixing Machine Tender Cork Gasket for Inga Estevez
[2025-01-27] MEDS: ondansetron hcl ODT 4 mg Tab PO (14:27)
[2025-01-27 14:31] LABS: Hematocrit 38.3 % (36-47); Hemoglobin 11.70 g/dL (11.27-16.99); Mean Corpuscular HGB Conc 30.5 g/dL (30-55); Mean Corpuscular Hemoglobin 27.1 pg (27-33); Mean Corpuscular Volume 88.9 fl (85-98); Nucleated Red Blood Cells % 0 %; Platelet Count 246 10^3/cmm (157-399); Red Blood Count 4.31 10^6/uL (3.85-5.65); White Blood Count 7.45 10^3/uL (3.29-11.43)
[2025-01-27 14:44] VITALS: PULSE 77; O2SAT 95
[2025-01-27 14:49] LABS: Glucose Urine UA Norm (Normal); Nitrate Urine Positive (Negative); Specific Gravity, Urine 1.020 (1.005-1.030)
[2025-01-27 14:50] LABS: Add Urine Microscopic? YES; UA Manual Slide Review YES
[2025-01-27 15:12] VITALS: BP 144/87; PULSE 78; O2SAT 98
== END 2025-01-27 15:00 | disposition home or self-care (01) ==
PROVIDERS: Emergency Provider Physician Assistant; PCP Nurse Practitioner Family
DX: N92.1 Excessive and frequent menstruation with irregular cycle (principal); R82.81 Pyuria
CPT/HCPCS: 36415; 81001; 85025; 87086; 99283; Q0162

== ENCOUNTER 2025-02-05 09:08 | Emergency (ER) | payer BC, MEDICAID, SELFPAY ==
[2025-02-05 09:13] VITALS: BP 163/85; PULSE 89; RESP 17; TEMP 36.7; O2SAT 98; BMI 70.9
--- OUTSIDE RECORDS SUMMARY | 2025-02-05 09:30 | XMS_ITS | Encounter Summary ---
Author Organization [facility] Address [address] [place] [address] Care Team Providers Care Database Consultant Name Role Phone Unavailable Primary Care Provider Unavailabl e Encounter Details Date Type Department Care Team (Late st Contact Info) Description 12/10/2004 Emergency [facility] Emergency Department [address] 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 Phone Number INTERFACE SYSTEM Refer to clinic/hospital department * LIPASE (12/11/2004 5:30 AM CDT) LIPASE 80 23 - 300 IU/L INTERFACE SYSTEM 12/11/2004 5:30 AM CDT Heriberto Jacobs DO CHEMISTRY ORDERABLES Final Result Performing Organization Address [facility] Phone Number INTERFACE SYSTEM Refer to clinic/hospital department * AMYLASE (12/11/2004 5:30 AM CDT) AMYLASE 32 30 - 120 IU/L INTERFACE SYSTEM 12/11/2004 5:30 AM CDT us Heriberto Jacobs DO CHEMISTRY ORDERABLES Final Result Performing Organization Address [facility] Phone Number INTERFACE SYSTEM Refer to clinic/hospital [...] ORDERABLES Final Res ult Performing Organization Address [facility] Phone Number INTERFACE SYSTEM Refer to clinic/hospital department * ICTOTEST (12/11/2004 3:15 AM CDT) ICTO Negative Negative INTERFACE SYSTEM 12/11/2004 3:15 AM CDT us Heriberto Lepes DO URINE ORDERABLES Final Res ult Performing Organization Address [facility] Phone Number INTERFACE SYSTEM Refer to clinic/hospital department * ACETONE QUALITATIVE, URINE (12/11/2004 3:15 AM CDT) KETONES UA Negative Negative INTERFACE SYSTEM 12/11/2004 3:15 AM CDT us Heriberto [place] Jacobs DO URINE ORDERABLES Final Res ult Performing Organization Address [facility] Phone Number INTERFACE SYSTEM Refer to clinic/hospital [...]
--- OUTSIDE RECORDS SUMMARY | 2025-02-05 09:30 | XMS_ITS | Clinical Summary ---
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
--- NOTE | 2025-02-05 09:32 | W.ED.NAVMDI ---
HPI - Nausea/Vomiting/Diarrhea General: Chief complaint: Nausea/Vomiting/Diarrhea Stated complaint: diarrhea, high hr, nausea Time Seen by Provider: 02/05/25 09:15 Source: patient Mode of arrival: ambulatory Limitations: no limitations History of Present Illness: Patient is a 44-year-old female with a history of anxiety, depression, transaminitis, hypothyroidism, super morbid obesity with a BMI of 70.9, vitamin deficiencies (per patient history), among others here stating I just do not feel well . Patient has multiple issues that she tells me about including menorrhagia (seen here in ED and had [facility] appointment but had to leave appointment early for an emergency and did not get to see Dr. Underwood-appointment rescheduled), vitamin and thyroid deficiencies (being seen by her primary care provider and also mentioned they have possibly placed referral for endocrinology), mild transaminitis (reportedly scheduled for an outpatient ultrasound tomorrow-had CT scan performed here approximately 10 days ago showing hepatomegaly but no other abnormalities to liver noted), feeling dehydrated (states she is on HCTZ for fluid retention and feels like this has dehydrated her), and frequent mushy, foul smelling stools that she is concerned could be c. difficile. She repeatedly tells me she feels like her body is shutting down or giving up on me . MD elicited complaint: other (mushy, foul smelling stools) Onset (ago): day(s) Associated nausea: No Associated abdominal pain: No Location of pain: None Exacerbating factors: none Relieving factors: none Associated symtoms: Reports fatigue; Denies change in vision, chest pain, dizziness, dysuria, headache(s), malaise, nausea, palpitations or syncope Related Data Home Medications ?Medication ?Instructions ?Recorded ?Confirmed cholecalciferol (vitamin D3) 50 50 mcg PO DAILY 12/20/24 02/05/25 mcg (2,000 unit) tablet (Vitamin D3) cyanocobalamin (vitamin B-12) 50 50 mcg PO DAILY 12/20/24 02/05/25 mcg tablet (Vitamin B-12) hydrochlorothiazide 25 mg tablet 25 mg PO DAILY PRN swelling 12/20/24 02/05/25 levothyroxine 25 mcg tablet 25 mcg PO DAILY 12/20/24 02/05/25 magnesium 250 mg tablet 250 mg PO DAILY 12/20/24 02/05/25 buspirone 5 mg tablet 10 mg PO BID PRN Anxiety 02/05/25 02/05/25 lorazepam 1 mg tablet 1 mg PO TID PRN Anxiety 02/05/25 02/05/25 tranexamic acid 650 mg tablet 650 mg PO Q8H 02/05/25 02/05/25 Previous Rx's ?Medication ?Instructions ?Recorded cefdinir 300 mg capsule 300 mg PO BID 10 days #20 caps 01/27/25 Allergies Allergy/AdvReac Type Severity Reaction Status Date / Time sulfamethoxazole (From Allergy ALGY-Rash Verified 01/31/25 09:57 Bactrim) trimethoprim (From Bactrim) Allergy ALGY-Rash Verified 01/31/25 09:57 bupropion (From Wellbutrin) AdvReac ADR-Anxiety Verified 01/31/25 09:57 Review of Systems Const: Reports: fatigue; Denies: fever(s), chills, body aches or malaise Eyes: Denies: change in vision or blurry vision Card: Reports: edema; Denies: chest pain, palpitations, irregular heart rhythm, lightheadedness, syncope, dyspnea on exertion or orthopnea Resp: Denies: dyspnea, productive cough or pain on inspiration GI: Reports: change in bowel habits; Denies: abdominal pain, nausea, vomiting, heartburn, hematochezia, melena or white/light colored stool : Reports: vaginal bleeding, irregular period and metrorrhagia; Denies: flank pain, dysuria or hematuria Musc: Denies: neck pain, back pain, extremity pain or joint pain Skin/Breast: Denies: rash Neuro: Denies: headache(s) or dizziness PFSH ED PFSH: Medical History SVT (supraventricular tachycardia) Immunization counseling High risk medication use Rheumatoid arthritis with rheumatoid factor No pertinent past medical history neg hx: htn,dm,thyroid,dvt/pe Depression Anxiety Surgical History S/P tonsillectomy H/O foot surgery (~1991) left-- fracture in growth plate Previous section (~2010) S/P cholecystectomy (~01/2019) Family History Grandmother Diabetes Hypertension Hyperlipidemia Stroke Paternal grandmother Heart disease Maternal grandmother Uterine cancer, Onset Age: 50 MGM Grandfather Diabetes Hypertension Hyperlipidemia Stroke Paternal grandfather Heart disease Paternal grandfather Maternal grandfather Father Diabetes Brother Diabetes Family/Other Diabetes Maternal aunt Breast cancer Paternal Cousin--dx'd in her early 30s Mother Hypertension Heart disease Family history of thyroid problem Other CAD (coronary artery disease) Rheumatoid arthritis Denies family history of Colon cancer Ovarian cancer Lupus Chronic kidney disease (CKD) Lung disease Cancer Social History Smoking and tobacco/nicotine status: never used tobacco/nicotine Substance/Drug Use: never Additional social history: - Tobacco use: former Alcohol use: Denies Drug use: Denies Do you think of yourself as: Straight/Heterosexual Current gender identity: Female Physical Exam Const: COMMON NORMALS: no acute distress, patient oriented x3, no limitations, alert and well nourished GENERAL APPEARANCE: cooperative NUTRITIONAL APPEARANCE: obese morbidly obese (BMI 70.9) ORIENTATION/CONSCIOUSNESS: Yes awake, Yes oriented to person, Yes oriented to place and Yes oriented to time HENMT: COMMON NORMALS: normocephalic and atraumatic HEAD & SCALP: normocephalic and atraumatic Eye: COMMON NORMALS: no scleral icterus Neck/C-Spine: COMMON NORMALS: full ROM, no lymphadenopathy, supple and no meningeal signs Chest: COMMONS NORMALS: normal inspection of the chest Resp: COMMON NORMALS: normal respiratory effort and clear to auscultation bilaterally AUSCULTATION: clear to auscultation bilaterally Cardio: COMMON NORMALS: regular rate and regular rhythm RATE: regular rate RHYTHM: regular rhythm GI: COMMON NORMALS: Normal to inspection, nondistended, normoactive bowel sounds present, Soft to palpation and non-tender INSPECTION: Yes normal to inspection PALPATION: Yes Soft to palpation OTHER: exam limited by body habitus : COMMON NORMALS: Yes no CVA tenderness BLADDER/KIDNEY EXAM: Yes no CVA tenderness Back/Pelvis: COMMON NORMALS: no CVA tenderness and thoracic and lumbar spine normal to inspection Extremity: COMMON NORMALS: normal to inspection GENERAL: Yes normal exam except as noted Neuro: TON COMA SCALE: document GCS findings [place] coma scale eye opening: Spontaneous [place] coma scale verbal response: Orientated [place] coma scale motor response: Obey commands [place] coma scale total score: 15 COMMON NORMALS: patient oriented x3, moves all extremities, no focal motor deficits and no sensory deficits noted SENSORIUM/ORIENTATION: Yes alert, Yes oriented to person, Yes oriented to place and Yes oriented to time MENINGEAL SIGNS: Yes no meningeal signs Skin: COMMON NORMALS: no rashes or lesions noted GENERAL SKIN EXAM: no rashes or lesions noted Course Vital Signs: Vital signs: Vital Signs Temperature 98.0 F 02/05/25 09:13 Pulse Rate 76 02/05/25 11:38 Respiratory Rate 17 02/05/25 09:13 Blood Pressure 163/85 02/05/25 11:38 Pulse Oximetry 94 02/05/25 11:38 Oxygen Delivery Me thod Room Air 02/05/25 09:13 MDM - Nausea/Vomiting/Diarrhea Medical Decision Making Patient is a 44-year-old female here for multiple complaints but her main concern was abnormal stools and concern for C. difficile and concern for dehydration. Patient was given IV fluids. Her C. difficile was negative. Remainder of stool testing are send outs. Her vital signs are normal. Blood work overall is unremarkable. White count is normal. Mild anemia with a hemoglobin of 10.9-most likely related to her heavy menstrual cycles. She does have follow-up with [facility] next week. Chemistry continuing to show elevations to her liver functions. These are chronically intermittent elevated and most likely related to hepatic steatosis. UA is clear. Patient will be allowed discharge with recommendations to follow-up with primary care later this week. Return to ED precautions discussed. Medical Records I reviewed the patient's medical records. Lab Data I reviewed the patient's lab results. 02/05/25 10:20 02/05/25 10:20 Laboratory Results WBC 7.67 10^3/uL (3.29-11.43) 02/05/25 10:20 RBC 4.03 10^6/uL (3.85-5.65) 02/05/25 10:20 Hgb 10.90 g/dL (11.27-16.99) L 02/05/25 10:20 Hct 35.3 % (36-47) L 02/05/25 10:20 MCV 87.6 fl (85-98) 02/05/25 10:20 MCH 27.0 pg (27-33) 02/05/25 10:20 MCHC 30.9 g/dL (30-55) 02/05/25 10:20 RDW 14.9 % (12.1-15.1) 02/05/25 10:20 Plt Count 266 10^3/cmm (157-399) 02/05/25 10:20 MPV 10.9 fL (7.4-10.4) H 02/05/25 10:20 Neut % (Auto) 75.6 % 02/05/25 10:20 Lymph % (Auto) 15.4 % 02/05/25 10:20 [place]bert % (Auto) 6.8 % 02/05/25 10:20 Eos % (Auto) 1.6 % 02/05/25 10:20 Baso % (Auto) 0.5 % 02/05/25 10:20 Neut # (Auto) 5.80 10^3/uL (1.8-7.7) 02/05/25 10:20 Lymph # (Auto) 1.2 10^3/uL (0.8-4.8) 02/05/25 10:20 Colbert # (Auto) 0.5 10^3/uL (0.2-0.9) 02/05/25 10:20 Eos # (Auto) 0.1 10^3/uL (0.0-0.8) 02/05/25 10:20 Baso # (Auto) 0.0 10^3/uL (0.0-0.1) 02/05/25 10:20 Nucleated RBC % (auto) 0 % 02/05/25 10:20 Nucleated RBCs # 0.0 /100WBC 02/05/25 10:20 Sodium 136 mmol/L (136-145) 02/05/25 10:20 Potassium 3.5 mmol/L (3.5-5.1) 02/05/25 10:20 Chloride 97 mmol/L (98-107) L 02/05/25 10:20 Carbon Dioxide 26 mmol/L (22-29) 02/05/25 10:20 Anion Gap 16.5 (5-19) 02/05/25 10:20 BUN 6 mg/dL (6-20) 02/05/25 10:20 Creatinine 0.5 mg/dL (0.5-0.9) 02/05/25 10:20 GFR Calculation 133.4 mL/min (90-130) H 02/05/25 10:20 Glucose 107 mg/dL (65-115) 02/05/25 10:20 Calculated Osmolality 280 mOsm/kg (285-295) L 02/05/25 10:20 Calcium 8.9 mg/dL (8.5-10.5) 02/05/25 10:20 Total Bilirubin 1.8 mg/dL (0.15-1.2) H 02/05/25 10:20 AST 69 U/L (0-32) H 02/05/25 10:20 ALT 71 U/L (0-33) H 02/05/25 10:20 Alkaline Phosphatase 87 U/L (35-105) 02/05/25 10:20 Total Protein 7.0 g/dL (6.6-8.7) 02/05/25 10:20 Albumin 4.1 g/dL (3.5-5.2) 02/05/25 10:20 Globulin 2.9 g/dL (1.3-4.6) 02/05/25 10:20 Lipase 21 U/L (13-60) 02/05/25 10:20 HCG, Qual Negative (Negative) 02/05/25 10:20 Urine Color Yellow (Yellow) 02/05/25 10:45 Urine Appearance Clear (CLEAR) 02/05/25 10:45 Urine pH 6.5 (5-7) 02/05/25 10:45 Ur Specific [place] 1.009 (1.005-1.030) 02/05/25 10:45 Urine Protein Negative (Negative) 02/05/25 10:45 Urine Glucose (UA) Negative (Normal) 02/05/25 10:45 Urine Ketones Negative (Negative) 02/05/25 10:45 Urine Blood Non-haemolysed trace (Negative) 02/05/25 10:45 Urine Nitrate Negative (Negative) 02/05/25 10:45 Urine Bilirubin Negative (Negative) 02/05/25 10:45 Urine Urobilinogen 0.2 mg/dL (Negative) 02/05/25 10:45 Ur Leukocyte Esterase Trace (Negative) A 02/05/25 10:45 Urine RBC 0-4 /hpf (0-2) H 02/05/25 10:45 Urine WBC 0-4 /hpf (0-5) H 02/05/25 10:45 Ur Squamous Epith Cells 0-4 /hpf (0-5) H 02/05/25 10:45 Amorphous Sediment Not Reportable 02/05/25 10:45 Urine Bacteria 1+ /hpf (NONE) H 02/05/25 10:45 Urine Mucus None /hpf 02/05/25 10:45 C. difficile (PCR) Negative (Negative) 02/05/25 10:46 No radiology studies performed this visit Discharge Plan Discharge Patient Disposition: Home Clinical Impression: Abnormal stools Condition: Stable Prescriptions: No Action cefdinir 300 mg capsule 300 mg PO BID 10 Days Qty: 20 0RF buspirone 5 mg tablet 10 mg PO BID PRN (Reason: Anxiety) lorazepam 1 mg tablet 1 mg PO TID PRN (Reason: Anxiety) tranexamic acid 650 mg tablet 650 mg PO Q8H MDD x5d Vitamin B-12 50 mcg Tablet 50 mcg PO DAILY magnesium 250 mg Tablet 250 mg PO DAILY hydrochlorothiazide 25 mg tablet 25 mg PO DAILY PRN (Reason: swelling) cholecalciferol (vitamin D3) [Vitamin D3] 50 mcg (2,000 unit) Tablet 50 mcg PO DAILY levothyroxine 25 mcg tablet 25 mcg PO DAILY Discharge Orders: Discharge ED (Routine); Ordered 02/05/25 Ordered By: Jodie Flower Referrals: Shannon Beal FNP [Primary Care Provider, Unknown] Patient Instructions: Patient Portal & Carolyn Instructions Activity Restrictions/Additional Instructions: As we discussed, your C. difficile test was negative. Remainder of stool samples are send outs and primary care can follow-up with these as an outpatient. Her blood work today overall was nonactionable. You continue to have minor elevations to your liver enzymes. You are reportedly scheduled for an ultrasound tomorrow. These can continue to be followed up with your primary care provider. Urine does not appear infected. You were given fluids today. Please contact your primary care provider upon discharge and schedule an ER follow-up visit. Print Language: Vietnamese Coding Level of Care Code [employer] Consultant for Inga Estevez
[2025-02-05] MEDS: ondansetron 2 mg/ML SDV 2 mL 4 MG IVP (10:11)
[2025-02-05 10:30] LABS: Hematocrit 35.3 % (36-47); Hemoglobin 10.90 g/dL (11.27-16.99); Mean Corpuscular HGB Conc 30.9 g/dL (30-55); Mean Corpuscular Hemoglobin 27.0 pg (27-33); Mean Corpuscular Volume 87.6 fl (85-98); Nucleated Red Blood Cells % 0 %; Platelet Count 266 10^3/cmm (157-399); Red Blood Count 4.03 10^6/uL (3.85-5.65); White Blood Count 7.67 10^3/uL (3.29-11.43)
[2025-02-05 10:51] LABS: Alanine Aminotransferase 71 U/L (0-33); Albumin Level 4.1 g/dL (3.5-5.2); Alkaline Phosphatase 87 U/L (35-105); Anion Gap 16.5 (5-19); Aspartate Amino Transferase 69 U/L (0-32); Blood Urea Nitrogen 6 mg/dL (6-20); Calcium 8.9 mg/dL (8.5-10.5); Carbon Dioxide 26 mmol/L (22-29); Chloride 97 mmol/L (98-107); Creatinine Clr Calc Pharmacy 250.0828; Globulin 2.9 g/dL (1.3-4.6); Glucose 107 mg/dL (65-115); HCG, Serum Qual Negative (Negative); Lipase 21 U/L (13-60); Osmolality Calculated 280 mOsm/kg (285-295); Potassium 3.5 mmol/L (3.5-5.1); Sodium 136 mmol/L (136-145); Total Protein 7.0 g/dL (6.6-8.7)
[2025-02-05 11:06] LABS: Glucose Urine UA Negative (Normal); Nitrate Urine Negative (Negative); Specific Gravity, Urine 1.009 (1.005-1.030)
[2025-02-05 11:24] LABS: Add Urine Microscopic? YES
[2025-02-05 11:38] VITALS: BP 163/85; PULSE 76; O2SAT 94
[2025-02-05 11:47] LABS: C.Diff PCR (Lab) NEGATIVE (Negative)
[2025-02-05 11:58] VITALS: PULSE 78; O2SAT 95
[2025-02-05] MEDS: metoclopramide 5 mg/mL SDV 2 mL 10 MG IVP (12:07)
== END 2025-02-05 12:07 | disposition home or self-care (01) ==
PROVIDERS: Emergency Provider Physician Assistant; PCP Nurse Practitioner Family
DX: R19.5 Other fecal abnormalities (principal)
CPT/HCPCS: 80053; 81001; 82274; 83630; 83690; 84703; 85025; 87045; 87177; 87209; 87427; 87449; 87493; 96374; 96375; 99284; J2405; J2765; J7030

== ENCOUNTER 2025-02-06 10:49 | Outpatient (CLI) | payer BC, MEDICAID, SELFPAY ==
--- NOTE | 2025-02-06 10:56 | US_ITS ---
WS: [id number] RIGHT UPPER QUADRANT ULTRASOUND HISTORY: ELEVATED LIVER ENZYMES COMPARISON: 01/24/2019 Technically very difficult and limited evaluation of the RIGHT upper quadrant due to patient's body habitus. Liver: 22.8 cm in length. Enlarged liver is poorly visualized. Deep portions of the liver are attenuated due to body habitus. Loss of the normal portal veins and biliary duct structures. Portal Vein: Not visualized. Gallbladder: Prior cholecystectomy. CBD: 0.4 cm Pancreas: Not visualized. Right kidney: 9.5 cm in length. Normal size. Limited otherwise. No obstruction. Aorta and IVC: Limited. No ascites. US/US liver [id number] IMPRESSION: 1. Status post cholecystectomy. 2. Extremely limited RIGHT upper quadrant ultrasound secondary to body habitus . 3. The liver is markedly enlarged with hepatic steatosis. The entire liver can not be well visualized.
== END 2025-02-06 10:50 | disposition home or self-care (01) ==
LOC: RAD 10:50
PROVIDERS: PCP Nurse Practitioner Family; Visit Provider Nurse Practitioner Family
DX: R74.8 Abnormal levels of other serum enzymes (principal); Z90.49 Acquired absence of other specified parts of digestive tract; R16.0 Hepatomegaly, not elsewhere classified; K76.0 Fatty (change of) liver, not elsewhere classified
CPT/HCPCS: 76705

== ENCOUNTER → 2025-02-13 11:42 | Outpatient (BNVA) | payer BC, MEDICAID, SELFPAY | PROVIDERS: PCP Nurse Practitioner Family; Visit Provider Obstetrics & Gynecology | DX: N93.9 Abnormal uterine and vaginal bleeding, unspecified (principal) | CPT/HCPCS: 87624 ==

== ENCOUNTER 2025-02-14 14:03 | Outpatient (CLI) | payer BC, MEDICAID, SELFPAY ==
--- NOTE | 2025-02-14 14:07 | MM_ITS ---
WS: [id number] BILATERAL SCREENING DIGITAL TOMOSYNTHESIS MAMMOGRAM WITH CAD HISTORY: SCREENING COMPARISON: 11/08/2023, 02/16/2022 Bilateral CC and MLO views with tomosynthesis and synthetic mammography submitted. Computer aided detection analyzed. Breast composition: The breasts are almost entirely fatty. No suspicious masses, microcalcifications or architectural distortion. Benign lymph nodes in the upper outer quadrants of each breast. MM/MM scr BI tomosynthesis [id number] IMPRESSION: BI-RADS: 2 - Benign. FOLLOW UP: 1 Year Follow-up
== END 2025-02-14 14:04 | disposition home or self-care (01) ==
LOC: RAD 14:04
PROVIDERS: PCP Nurse Practitioner Family; Visit Provider Nurse Practitioner Family
DX: Z12.31 Encounter for screening mammogram for malignant neoplasm of breast (principal); R92.313 Mammographic fatty tissue density, bilateral breasts; D36.0 Benign neoplasm of lymph nodes
CPT/HCPCS: 77063; 77067

== ENCOUNTER 2025-02-18 13:07 | Emergency (ER) | payer BC, MEDICAID, SELFPAY ==
--- NOTE | 2025-02-18 13:09 | XR_ITS ---
WS: [id number] Exam: XR chest 1V portable [id number] Date/Time of Exam: 02/18/2025 1:15 PM Reason For Exam: cp Comparison 12/20/2024. The lungs are fully inflated and clear. Chronic eventration of the RIGHT diaphragm. Normal cardiomediastinal silhouette. Bony structures are intact. No pleural effusion. XR/XR chest 1V portable [id number] IMPRESSION: 1. Negative chest.
--- NOTE | 2025-02-18 13:18 | ECG_ITS ---
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 Measurements Intervals [place] Rate: 74 P: 70 MD: 160 QRS: 57 QRSD: 93 T: 45 QT: 411 QTc: 457 Interpretive Statements SINUS RHYTHM T WAVE FLATTENING LOW QRS VOLTAGE IN PRECORDIAL LEADS [QRS DEFLECTION < 1.0 mV IN CHEST LEADS] Compared to ECG 12/20/2024 17:17:29 Low QRS voltage now present Electronically Signed On 02-21-2025 08:34:04 CDT by Dariel Casas M.D. [id number]
[2025-02-18 13:21] VITALS: BP 163/90; PULSE 73; RESP 18; TEMP 36.6; O2SAT 100; BMI 71.2
--- NOTE | 2025-02-18 13:28 | W.ED.CHESTPA ---
HPI - Chest Pain General: Chief Complaint: Chest Pain Stated Complaint: Chest pain Time Seen by Provider: 02/18/25 13:16 Source: patient Mode of arrival: ambulatory Limitations: no limitations History of Present Illness: 44-year-old female well-known to the ER states she has sharp chest pains been going on for roughly 10 hours. States has been constant in the center of her chest rates it a 5 out of 10 currently. States she has had some mild dyspnea as well. She denies any cough denies any fevers she denies any worse or improving factors denies any abdominal pain. Denies any diaphoresis Associated symptoms: Reports dyspnea; Deny abdominal pain, fever(s), nausea or vomiting Related Data Home Medications ?Medication ?Instructions ?Recorded ?Confirmed cholecalciferol (vitamin D3) 50 50 mcg PO DAILY 12/20/24 02/13/25 mcg (2,000 unit) tablet (Vitamin D3) cyanocobalamin (vitamin B-12) 50 50 mcg PO DAILY 12/20/24 02/13/25 mcg tablet (Vitamin B-12) hydrochlorothiazide 25 mg tablet 25 mg PO DAILY PRN swelling 12/20/24 02/13/25 levothyroxine 25 mcg tablet 25 mcg PO DAILY 12/20/24 02/13/25 magnesium 250 mg tablet 250 mg PO DAILY 12/20/24 02/13/25 buspirone 5 mg tablet 10 mg PO BID PRN Anxiety 02/05/25 02/13/25 lorazepam 1 mg tablet 1 mg PO TID PRN Anxiety 02/05/25 02/13/25 tranexamic acid 650 mg tablet 650 mg PO Q8H 02/05/25 02/13/25 Allergies Allergy/AdvReac Type Severity Reaction Status Date / Time sulfamethoxazole (From Allergy ALGY-Rash Verified 02/18/25 13:23 Bactrim) trimethoprim (From Bactrim) Allergy ALGY-Rash Verified 02/18/25 13:23 bupropion (From Wellbutrin) AdvReac ADR-Anxiety Verified 02/18/25 13:23 Review of Systems Const: Denies: fever(s), chills, body aches or change in appetite ENMT: Denies: throat pain or dental pain Card: Reports: chest pain Resp: Reports: dyspnea GI: Denies: abdominal pain, nausea, vomiting or diarrhea Musc: Denies: neck pain or back pain Skin/Breast: Denies: rash Neuro: Denies: headache(s) Psych: Denies: depression Yosef/Lymph: Denies: easy bruising All/Imm: Denies: urticaria PFSH ED PFSH: Medical History SVT (supraventricular tachycardia) Immunization counseling High risk medication use Rheumatoid arthritis with rheumatoid factor No pertinent past medical history neg hx: htn,dm,thyroid,dvt/pe Depression Anxiety Surgical History S/P tonsillectomy H/O foot surgery (~1991) left-- fracture in growth plate Previous section (~2010) S/P cholecystectomy (~01/2019) Family History Grandmother Diabetes Hypertension Hyperlipidemia Stroke Paternal grandmother Heart disease Maternal grandmother Uterine cancer, Onset Age: 50 MGM Grandfather Diabetes Hypertension Hyperlipidemia Stroke Paternal grandfather Heart disease Paternal grandfather Maternal grandfather Father Diabetes Brother Diabetes Family/Other Diabetes Maternal aunt Breast cancer Paternal Cousin--dx'd in her early 30s Mother Hypertension Heart disease Family history of thyroid problem Other CAD (coronary artery disease) Rheumatoid arthritis Denies family history of Colon cancer Ovarian cancer Lupus Chronic kidney disease (CKD) Lung disease Cancer Social History Smoking and tobacco/nicotine status: former use of tobacco/nicotine Substance/Drug Use: never Additional social history: - Tobacco use: former Alcohol use: Denies Drug use: Denies Do you think of yourself as: Straight/Heterosexual Current gender identity: Female Physical Exam Const: COMMON NORMALS: no acute distress, patient oriented x3 and healthy appearing HENMT: COMMON NORMALS: normocephalic and atraumatic HEAD & SCALP: normocephalic and atraumatic Neck/C-Spine: COMMON NORMALS: full ROM and supple Chest: COMMONS NORMALS: normal inspection of the chest and normal palpation of entire chest wall Resp: COMMON NORMALS: normal respiratory effort, No retractions, No use of accessory muscles and clear to auscultation bilaterally AUSCULTATION: clear to auscultation bilaterally Cardio: COMMON NORMALS: regular rate, regular rhythm and No murmurs present (Cardio) RATE: regular rate RHYTHM: regular rhythm Extremity: COMMON NORMALS: normal to inspection and full ROM Neuro: COMMON NORMALS: patient oriented x3, moves all extremities and no focal motor deficits Psych: COMMON NORMALS: mental status grossly normal, Normal thought process present and cooperative THOUGHT PROCESS: Normal thought process present Skin: COMMON NORMALS: no rashes or lesions noted and no wounds GENERAL SKIN EXAM: no rashes or lesions noted Course Vital Signs: Vital signs: Vital Signs Temperature 97.9 F 02/18/25 13:21 Pulse Rate 73 02/18/25 13:21 Respiratory Rate 18 02/18/25 13:21 Blood Pressure 163/90 02/18/25 13:21 Pulse Oximetry 100 02/18/25 13:21 Oxygen Delivery Me thod Room Air 02/18/25 13:21 MDM - Chest Pain Medical Decision Making Patient presents here with chest pains atypical in nature she been having constant pain for roughly 12 hours her pain was resolved here with morphine. Differential includes ACS, pulmonary embolism, pneumothorax, aortic dissection. Patient's chest x-ray here was normal she has no signs of dissection here patient has no signs of pulm emboli D-dimer was negative her troponin here was negative heart score is 1 she has no signs of ACS she is stable for discharge she is followed her PCP return if worsening I did go over her labs EKG and imaging with her she is return if worsening. Medical Records I reviewed the patient's medical records. Lab Data I reviewed the patient's lab results. 02/18/25 14:02 02/18/25 14:02 Radiology Impressions Chest X-Ray 02/18/25 13:09 IMPRESSION: 1. Negative chest. Laboratory Results WBC 5.44 10^3/uL (3.29-11.43) 02/18/25 14:02 RBC 3.93 10^6/uL (3.85-5.65) 02/18/25 14:02 Hgb 10.60 g/dL (11.27-16.99) L 02/18/25 14:02 Hct 36.8 % (36-47) 02/18/25 14:02 MCV 93.6 fl (85-98) 02/18/25 14:02 MCH 27.0 pg (27-33) 02/18/25 14:02 MCHC 28.8 g/dL (30-55) L 02/18/25 14:02 RDW 14.5 % (12.1-15.1) 02/18/25 14:02 Plt Count 210 10^3/cmm (157-399) 02/18/25 14:02 MPV 11.3 fL (7.4-10.4) H 02/18/25 14:02 Neut % (Auto) 71.5 % 02/18/25 14:02 Lymph % (Auto) 18.2 % 02/18/25 14:02 [place] % (Auto) 7.5 % 02/18/25 14:02 Eos % (Auto) 2.0 % 02/18/25 14:02 Baso % (Auto) 0.6 % 02/18/25 14:02 Neut # (Auto) 3.89 10^3/uL (1.8-7.7) 02/18/25 14:02 Lymph # (Auto) 1.0 10^3/uL (0.8-4.8) 02/18/25 14:02 [place] # (Auto) 0.4 10^3/uL (0.2-0.9) 02/18/25 14:02 Eos # (Auto) 0.1 10^3/uL (0.0-0.8) 02/18/25 14:02 Baso # (Auto) 0.0 10^3/uL (0.0-0.1) 02/18/25 14:02 Nucleated RBC % (auto) 0 % 02/18/25 14:02 Nucleated RBCs # 0.0 /100WBC 02/18/25 14:02 D-Dimer <= 0.27 ug/mLFEU (0-0.59) 02/18/25 14:02 Sodium 135 mmol/L (136-145) L 02/18/25 14:02 Potassium 4.2 mmol/L (3.5-5.1) 02/18/25 14:02 Chloride 101 mmol/L (98-107) 02/18/25 14:02 Carbon Dioxide 21 mmol/L (22-29) L 02/18/25 14:02 Anion Gap 17.2 (5-19) 02/18/25 14:02 BUN 8 mg/dL (6-20) 02/18/25 14:02 Creatinine 0.6 mg/dL (0.5-0.9) 02/18/25 14:02 GFR Calculation 108.1 mL/min (90-130) 02/18/25 14:02 Glucose 98 mg/dL (65-115) 02/18/25 14:02 Calculated Osmolality 278 mOsm/kg (285-295) L 02/18/25 14:02 Calcium 8.6 mg/dL (8.5-10.5) 02/18/25 14:02 Total Bilirubin 1.1 mg/dL (0.15-1.2) 02/18/25 14:02 AST 58 U/L (0-32) H 02/18/25 14:02 ALT 72 U/L (0-33) H 02/18/25 14:02 Alkaline Phosphatase 85 U/L (35-105) 02/18/25 14:02 Troponin T Baseline < 6 ng/L (0-10) 02/18/25 14:02 Total Protein 6.4 g/dL (6.6-8.7) L 02/18/25 14:02 Albumin 3.7 g/dL (3.5-5.2) 02/18/25 14:02 Globulin 2.7 g/dL (1.3-4.6) 02/18/25 14:02 Lipase 22 U/L (13-60) 02/18/25 14:02 All radiology interpretation(s) finalized by discharge EKG Data EKG 1: I personally reviewed and interpreted this EKG as follows: EKG interpretation date: 02/18/25 EKG interpretation time: 13:18 Interpretation: nsr hr [address] elevation qrs 93 qtc 438 Discharge Plan Discharge Patient Disposition: Home Clinical Impression: Atypical chest pain Condition: Stable Prescriptions: No Action buspirone 5 mg tablet 10 mg PO BID PRN (Reason: Anxiety) lorazepam 1 mg tablet 1 mg PO TID PRN (Reason: Anxiety) tranexamic acid 650 mg tablet 650 mg PO Q8H MDD x5d Vitamin B-12 50 mcg Tablet 50 mcg PO DAILY magnesium 250 mg Tablet 250 mg PO DAILY hydrochlorothiazide 25 mg tablet 25 mg PO DAILY PRN (Reason: swelling) cholecalciferol (vitamin D3) [Vitamin D3] 50 mcg (2,000 unit) Tablet 50 mcg PO DAILY levothyroxine 25 mcg tablet 25 mcg PO DAILY Discharge Orders: Discharge ED (Routine); Ordered 02/18/25 Ordered By: Eric Romero Referrals: Shannon Beal FNP [Primary Care Provider, Unknown] Discharge Diet: Advance as tolerated Discharge Activity: Resume usual activity Patient Instructions: Chest Pain (ED) Print Language: Uzbek Coding Level of Care Code ED Ditching Machine Engineer for Chg Fwd Heart Score HEART Score Components History: Slightly Suspicous EKG: Normal Age: Less than 45 yrs Risk Factors: 1 or 2 Risk Factors Troponin: Baseline Trop <16 ng/L HEART Score RESULT HEART Score: 1
--- OUTSIDE RECORDS SUMMARY | 2025-02-18 13:34 | XMS_ITS | Encounter Summary ---
Author Organization [facility] Address [address] [place] [address] Care Team Providers Care Bill Recapitulation Clerk Name Role Phone Unavailable Primary Care Provider Unavailabl e Encounter Details Date Type Department Care Team (Late st Contact Info) Description 12/10/2004 Emergency [facility] Emergency Department [address] 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 Phone Number INTERFACE SYSTEM Refer to clinic/hospital department * LIPASE (12/11/2004 5:30 AM CDT) LIPASE 80 23 - 300 IU/L INTERFACE SYSTEM 12/11/2004 5:30 AM CDT Heriberto Jacobs DO CHEMISTRY ORDERABLES Final Result Performing Organization Address [facility] Phone Number INTERFACE SYSTEM Refer to clinic/hospital department * AMYLASE (12/11/2004 5:30 AM CDT) AMYLASE 32 30 - 120 IU/L INTERFACE SYSTEM 12/11/2004 5:30 AM CDT us Heriberto Jacobs DO CHEMISTRY ORDERABLES Final Result Performing Organization Address [facility] Phone Number INTERFACE SYSTEM Refer to [...] ult Performing Organization Address [facility] Phone Number INTERFACE SYSTEM Refer to clinic/hospital department * ICTOTEST (12/11/2004 3:15 AM CDT) ICTO Negative Negative INTERFACE SYSTEM 12/11/2004 3:15 AM CDT us Heriberto Lepes DO URINE ORDERABLES Final Res ult Performing Organization Address [facility] Phone Number INTERFACE SYSTEM Refer to clinic/hospital department * ACETONE QUALITATIVE, URINE (12/11/2004 3:15 AM CDT) KETONES UA Negative Negative INTERFACE SYSTEM 12/11/2004 3:15 AM CDT us Heriberto [place] Jacobs DO URINE ORDERABLES Final Res ult Performing Organization Address [facility] Phone Number INTERFACE SYSTEM Refer to [...]
--- OUTSIDE RECORDS SUMMARY | 2025-02-18 13:34 | XMS_ITS | Clinical Summary ---
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
--- OUTSIDE RECORDS SUMMARY | 2025-02-18 13:35 | XMS_ITS | Data Portability ---
Author Organization [facility]ILLIA[facility] Toni, Kassandra, [facility] Address [address] [facility] [address] [place] [address] Care Team Providers Care Electric Blanket Wirer Name Role Phone CEE CORONEL Primary Care Provider Unavailabl e Assessment Encounter Date Assessment Date Assessment LastModified by Organization Details LastModified Time 12/18/2024 12/18/2024 Patient here today to discuss [...] some Flinstone vitamins. Not available 01/07/2025 15:22:57 02/06/2025 02/06/2025 She has been doing therapy now and has had a couple of sessions. She continues to have right flank/side pain some but is not sure why. In reading the ER records it looks like the observation is that it may be related to fatty liver issues. She had an ultrasound done today. She is supposed to see WARDROBE ATTENDANT in a few weeks. Not available 02/07/2025 17:29:10 Plan of Treatment Reminders Order Date Submit Date Provider Last Modified By Organization Details Last Modified Time Details Appointments OFFICE VISIT 20 2024 01:00P M ANTONY NICHOLS Not available Not available Not available Lab urinalysi s, dipstick 2024 025 [email or web address] [facility] ([facility]), [address] [place] [address], [address], 02/04/2025 17:28:42 culture, urine 2024 025 [facility], [address] [place] [address], [address], [place], [address], 02/06/2025 01:41:01 CBC 2024 025 [place] [facility], [address] [place] [address], [address], 02/04/2025 16:07:07 CMP, serum or plasma 2024 025 [facility], [address] [place] [address], [address], 02/04/2025 16:51:05 estrogen, total, serum 2024 025 Door [address] [facility], [address] [place] [address], [address], [place], [address], 12/18/2024 09:33:05 progester one, serum 2024 025 Door 6 [facility], [address] [place] [address], [address], [place], [address], 12/18/2024 09:33:05 testoster one, total, serum 2024 025 [email or web address] [facility], [address] [place] [address], [address], [place], [address], 12/18/2024 09:33:05 lh (luteiniz ing hormone), serum 2024 025 [email or web address] [facility], [address] [place] [address], [address], [place], [address], 12/18/2024 09:33:05 FSH (follicle -stimulat ing hormone), serum 2024 025 [email or web address] [facility], [address] [place] [address], [address], [place], [address], 12/18/2024 09:33:05 dhea-sulf ate, serum 2024 025 [email or web address] [facility], [address] [place] [address], [facility] [address], [place], [address], 12/18/2024 09:33:05 prolactin , serum 2024 025 [facility], [address] [place] [address], [address], [place], [address], 12/18/2024 09:33:05 T4, free, serum 2024 025 [email or web address] [facility], [address] [place] [address], [address], [place], [address], 12/18/2024 09:33:05 T3, free, serum or plasma 2024 025 [email or web address] [facility], [address] [place] [address], [address], [place], [address], 12/18/2024 09:33:05 thyroid peroxidas e (tpo) Ab, serum 2024 025 [email or web address] [facility], [address] [facility] [address], [address], [place], [address], 12/18/2024 09:33:05 estradiol , serum 2024 025 [email or web address] [facility], [address], [address], [place], [address], 12/18/2024 09:33:06 Referral mental health counselor referral 2024 025 [email or web address] [facility], [facility], [place], [address], 01/25/2025 14:10:58 endocrino logy referral 2024 025 [email or web address] Wagner MD, [address] [place], [address], 02/13/2025 10:54:54 Procedures None recorded. Surgeries None recorded. Imaging MAMMO, screening , digital, bilateral 2024 [facility], [address] [place], [address], 02/13/2025 10:43:38 home sleep study 2024 025 [facility], [address] [place], [address], 01/30/2025 15:55:52 US, liver 2024 025 [facility] [employer] [facility], [address] [place], [address], 01/21/2025 09:12:58 Medication Orders lorazepam 1 mg tablet 2024 025 [facility], [address], [place], [address], 12/18/2024 13:21:48 levothyro xine 25 mcg tablet 2024 025 [facility], [address], [place], [address], 12/18/2024 12:42:02 Patient TargetsNo targets recorded. Patient Instructions Encounter Date Encounter Id Patient Instructions Last Modified By Organization Details Last Modified Time 12/18/2024 [id number] Call or return for questions or concerns. Not available 2024 10:31:30 01/07/2025 [id number] Call or return for questions or concerns. Not available 01/07/2025 15:18:12 02/04/2025 [id number] May use heat. Increase fluids. Continue antibiotics. Not available 02/04/2025 14:43:01 I will get CBC and CMP and have her keep follow up with RAFAEL Best. Not available 02/04/2025 14:35:38 02/06/2025 [id number] Call or return for questions or concerns. Not available 02/07/2025 17:25:51 Reason for Referral Endocrinology Referral for A [...] Q10(coq10) 0.86 ug/mL >0.35 This test was heriberto javier and its mis tical perfo rmanc e lakisha cteri stics have been deter mined by [facility] larry at [facility]. It has not been clear ed or appro libia by the U.S. Food and Drug Admin istra tion. This assay has been valid ated pursu ant to the CLIA regul ation s and is used for clini orville purpo ses. Coenz yme Q10 is a small compo nent [...] more infor celeste gavin, visit https ://ww w.[facility] ih.ni h.gov /heal th/co enzym e-q10 /. Not Available [address] [facility] [address] [address], [place], [address], 12/19/2024 10:11:32 12/12/19 25 12/19/2024 MICRO NUTRI ENTS, ANTIO XIDAN TS PANEL vitamin A (retinol) 19 mcg/d L 38-98 low Vitam in A is criti orville for visio n, growt h, and many cell funct [...] cteri stics have been deter mined by [facility] brenna hernandez, [place], [place]. It has not been clear ed or appro libia by the FDA. This assay has been valid ated pursu ant to the CLIA regul ation s and is used for clini orville purpo ses. Not Available [address] [address] [place], [address], 12/19/2024 10:11:32 12/12/1912/19/2024 MICRO NUTRI ENTS, ANTIO [...] ://od s.od. nih.g ov/fa ctshe ets/V itami nC-He althP rofes siona l/ This test was devel oparnoldo and its mis tical perfo rmanc e lakisha cteri stics have been deter mined by [facility] brenna Brizuelai david, [facility], [place]. It has not been clear ed or appro libia by the FDA. This assay has been valid ated pursu ant to the CLIA regul ation s and is used for clini orville purpo ses. Not Available [address] [address] [place], [address], 12/19/2024 10:11:32 12/12/1912/19/2024 MICRO NUTRI ENTS, ANTIO XIDAN TS PANEL vitamin E, alpha tocopherol 17.4 mg/L 5.7-19 .9 Not Available [facility] [address] [address] [place], [address], 12/19/2024 10:11:32 12/12/1912/19/2024 MICRO NUTRI ENTS, ANTIO [...] have been deter mined by [facility] ostrancho hernandez, [place], [place]. It has not been clear ed or appro libia by the FDA. This assay has been valid ated pursu ant to the CLIA regul ation s and is used for clini orville purpo ses. Not Available [address] [address] [place], [address], 12/19/2024 10:11:32 12/12/19 25 12/19/2024 LIPID PANEL , STAND YAMEL cholesterol, total 176 mg/dL <200 normal Not Available [address] [address] [place], [address], 12/19/2024 10:11:33 12/12/19 25 12/19/2024 LIPID PANEL , STAND YAMEL HDL cholesterol 52 mg/dL > or = 50 normal Not Available [address] [address] [place], [address], 12/19/2024 10:11:33 12/12/19 25 12/19/2024 LIPID PANEL , STAND YAMEL triglyceride s 136 mg/dL <150 normal Not Available [address] [address] [place], [address], 12/19/2024 10:11:33 12/12/1912/19/2024 LIPID PANEL , STAND YAMEL LDL-choleste rol 101 mg/dL _(orville c) high Refer ence range : <100 Janice able range <100 mg/dL for prima ry preve ntion ; <70 mg/dL for patie nts with CHD or diabe tic patie nts with > or = 2 CHD risk facto rs. LDL-C is now calcu lated using the Colette n-Hop kins calcu latslivana n, which is a valid ated novel mariluz sanders accur acy than the Fried carmen equat ion in the estim ation of LDL-C . Colette gavin SS et al. FLEX. 2013; 310(1 9): 2061- 2068 (http ://ed ucati on.Qu vesnaGilt Groupe. com/f aq/FA Q164) Not Available [facility] [address] [address] [place], [address], 12/19/2024 10:11:33 12/12/1912/19/2024 LIPID PANEL , STAND YAMEL chol/HDLC ratio 3.4 (calc ) <5.0 normal Not Available [facility] [address] [place], [address], 12/19/2024 10:11:33 12/12/1912/19/2024 LIPID PANEL , STAND YAMEL non HDL cholesterol 124 mg/dL _(orville c) <130 normal For patie nts with diabe edson plus 1 major ASCVD risk facto r, treat ing to a non-H DL-C goal of <100 mg/dL (LDL- C of <70 mg/dL ) is ayana parra optio n. Not Available [facility] [address] [place], [address], 12/19/2024 10:11:33 12/12/1912/19/2024 IRON, TOTAL iron, total 44 mcg/d L 40-190 normal Not Available [address], [address], 12/19/2024 10:11:34 12/12/19 25 12/19/2024 COMPR EHENS ZOFIA METAB OLIC PANEL glucose 110 mg/dL 65-99 high Fasti ng refer ence inter edward For someo ne witho ut known diabe edson, a gluco se value betwe en 100 and 125 mg/dL is consi stent with predi abete s and shoul d be confi rmed with a follo w-up test. Not Available [address], [address], 12/19/2024 10:11:34 12/12/19 25 12/19/2024 COMPR EHENS ZOFIA METAB OLIC PANEL urea nitrogen (BUN) 10 mg/dL 7-25 normal Not Available [address], [address], 12/19/2024 10:11:34 12/12/19 25 12/19/2024 COMPR EHENS ZOFIA METAB OLIC PANEL creatinine 0.67 mg/dL 0.50-0 .99 normal Not Available [address], [address], 12/19/2024 10:11:34 12/12/1912/19/2024 COMPR EHENS ZOFIA METAB OLIC PANEL eGFR 110 mL/mi n/1.7 3m2 > or = 60 normal Not Available [address], [address], 12/19/2024 10:11:34 12/12/19 25 12/19/2024 COMPR EHENS ZOFIA METAB OLIC PANEL BUN/creatini ne ratio SEE NOTE: (calc ) 6-22 Not Repor trell: BUN and Creat inine are withi n refer ence range . Not Available [address], [address], 12/19/2024 10:11:34 12/12/19 25 12/19/2024 COMPR EHENS ZOFIA METAB OLIC PANEL sodium 138 mmol/ L 135-14 6 normal Not Available [address], [address], 12/19/2024 10:11:34 12/12/19 25 12/19/2024 COMPR EHENS ZOFIA METAB OLIC PANEL potassium 4.3 mmol/ L 3.5-5. 3 normal Not Available [address], [address], 12/19/2024 10:11:34 12/12/19 25 12/19/2024 COMPR EHENS ZOFIA METAB OLIC PANEL chloride 101 mmol/ L 98-110 normal Not Available [address], [address], 12/19/2024 10:11:34 12/12/19 25 12/19/2024 COMPR EHENS ZOFIA METAB OLIC PANEL carbon dioxide 28 mmol/ L 20-32 normal Not Available [address], [address], 12/19/2024 10:11:34 12/12/19 25 12/19/2024 COMPR EHENS ZOFIA METAB OLIC PANEL calcium 9.2 mg/dL 8.6-10 .2 normal Not Available [address], [address], 12/19/2024 10:11:34 12/12/19 25 12/19/2024 COMPR EHENS ZOFIA METAB OLIC PANEL protein, total 6.5 g/dL 6.1-8. 1 normal Not Available [address], [address], 12/19/2024 10:11:34 12/12/19 25 12/19/2024 COMPR EHENS ZOFIA METAB OLIC PANEL albumin 3.9 g/dL 3.6-5. 1 normal Not Available [address], [address], 12/19/2024 10:11:34 12/12/19 25 12/19/2024 COMPR EHENS ZOFIA METAB OLIC PANEL globulin 2.6 g/dL_ (calc ) 1.9-3. 7 normal Not Available [address], [address], 12/19/2024 10:11:34 12/12/19 25 12/19/2024 COMPR EHENS ZOFIA METAB OLIC PANEL albumin/glob ulin ratio 1.5 (calc ) 1.0-2. 5 normal Not Available [address], [address], 12/19/2024 10:11:34 12/12/19 25 12/19/2024 COMPR EHENS ZOFIA METAB OLIC PANEL bilirubin, total 0.9 mg/dL 0.2-1. 2 normal Not Available [address], [address], 12/19/2024 10:11:34 12/12/19 25 12/19/2024 COMPR EHENS ZOFIA METAB OLIC PANEL alkaline phosphatase 94 U/L 31-125 normal Not Available [address] [address] [place], [address], 12/19/2024 10:11:34 12/12/19 25 12/19/2024 COMPR EHENS ZOFIA METAB OLIC PANEL AST 113 U/L 10-30 high Not Available [address], [address], 12/19/2024 10:11:34 12/12/19 25 12/19/2024 COMPR EHENS ZOFIA METAB OLIC PANEL ALT 134 U/L 6-29 high Not Available [address], [address], 12/19/2024 10:11:34 12/12/19 25 12/19/2024 ESTRO GENS, TOTAL , IA estrogens, total, ia 252 pg/mL Refer ence Range s for Total Estro gen: Folli cular Phase : 51-60 1 Lutea l Phase : 87-11 94 Postm enopa usal: < or = 214 Not Available [address], [address], 12/19/2024 10:11:35 12/12/19 25 12/19/2024 CBC (INCL UDES DIFF/ PLT) white blood cell count 6.7 thous and/u L 3.8-10 .8 normal Not Available [address], [address], 12/19/2024 10:11:36 12/12/1912/19/2024 CBC (INCL UDES DIFF/ PLT) red blood cell count 4.44 emily on/uL 3.80-5 .10 normal Not Available [address], [address], 12/19/2024 10:11:36 12/12/19 25 12/19/2024 CBC (INCL UDES DIFF/ PLT) hemoglobin 12.1 g/dL 11.7-1 5.5 normal Not Available [address], [address], 12/19/2024 10:11:36 12/12/1912/19/2024 CBC (INCL UDES DIFF/ PLT) hematocrit 40.2 % 35.0-4 5.0 normal Not Available [address], [address], 12/19/2024 10:11:36 12/12/19 25 12/19/2024 CBC (INCL UDES DIFF/ PLT) MCV 90.5 fL 80.0-1 00.0 normal Not Available [address] [place], [address], 12/19/2024 10:11:36 12/12/1912/19/2024 CBC (INCL UDES DIFF/ PLT) MCH 27.3 pg 27.0-3 3.0 normal Not Available [facility] [address], [address], 12/19/2024 10:11:36 12/12/1912/19/2024 CBC (INCL UDES DIFF/ PLT) MCHC 30.1 g/dL 32.0-3 6.0 low For adult s, a sligh t decre ase in the calcu lated MCHC value (in the range of 30 to 32 g/dL) is most likel y not clini raul signi fican t; chad er, it shoul d be inter prete d with cauti on in [facility] n with other red cell autumn eters and the patie nt's clini orville condi tion. Not Available [facility] [address], [address], 12/19/2024 10:11:36 12/12/1912/19/2024 CBC (INCL UDES DIFF/ PLT) RDW 15.5 % 11.0-1 5.0 high Not Available [facility] [address], [address], 12/19/2024 10:11:36 12/12/1912/19/2024 CBC (INCL UDES DIFF/ PLT) platelet count 268 thous and/u L 140-40 0 normal Not Available [facility] [address], [address], 12/19/2024 10:11:36 12/12/1912/19/2024 CBC (INCL UDES DIFF/ PLT) MPV 11.5 fL 7.5-12 .5 normal Not Available [facility] [address], [address], 12/19/2024 10:11:36 12/12/19 25 12/19/2024 CBC (INCL UDES DIFF/ PLT) absolute neutrophils 4717 cells /uL 1500-7 800 normal Not Available [address], [address], 12/19/2024 10:11:36 12/12/19 25 12/19/2024 CBC (INCL UDES DIFF/ PLT) absolute lymphocytes 1407 cells /uL 850-39 00 normal Not Available [address], [address], 12/19/2024 10:11:36 12/12/19 25 12/19/2024 CBC (INCL UDES DIFF/ PLT) absolute monocytes 348 cells /uL 200-95 0 normal Not Available [address], [address], 12/19/2024 10:11:36 12/12/19 25 12/19/2024 CBC (INCL UDES DIFF/ PLT) absolute eosinophils 188 cells /uL 15-500 normal Not Available [address], [address], 12/19/2024 10:11:36 12/12/19 25 12/19/2024 CBC (INCL UDES DIFF/ PLT) absolute basophils 40 cells /uL 0-200 normal Not Available [address], [address], 12/19/2024 10:11:36 12/12/19 25 12/19/2024 CBC (INCL UDES DIFF/ PLT) neutrophils 70.4 % normal Not Available [address], [address], 12/19/2024 10:11:36 12/12/19 25 12/19/2024 CBC (INCL UDES DIFF/ PLT) lymphocytes 21.0 % normal Not Available [address], [address], 12/19/2024 10:11:36 12/12/19 25 12/19/2024 CBC (INCL UDES DIFF/ PLT) monocytes 5.2 % normal Not Available [address], [address], 12/19/2024 10:11:36 12/12/19 25 12/19/2024 CBC (INCL UDES DIFF/ PLT) eosinophils 2.8 % normal Not Available [address], [address], 12/19/2024 10:11:36 12/12/1912/19/2024 CBC (INCL UDES DIFF/ PLT) basophils 0.6 % normal Not Available [address], [address], 12/19/2024 10:11:36 12/12/1912/19/2024 THYRO ID PEROX IDASE ANTIB ODIES thyroid peroxidase antibodies 1 IU/mL <9 Not Available [address], [address], 12/19/2024 10:11:36 12/12/19 25 12/19/2024 DHEA SULFA TE DHEA sulfate 71 mcg/d L 15-205 normal Not Available [address], [address], 12/19/2024 10:11:37 12/12/19 25 12/19/2024 FOLAT E, SERUM folate, serum 6.1 NG/mL normal Refer ence Range Low: <3.4 Borde rline : 3.4-5 .4 Azucena l: >5.4 Not Available [address], [address], 12/19/2024 10:11:38 12/12/19 25 12/19/2024 FSH FSH 7.5 mIU/m L normal Refer ence Range Folli cular Phase 2.5-1 0.2 Mid-c ycle Peak 3.1-1 7.7 Lutea l Phase 1.5- 9.1 Postm enopa usal 23.0- 116.3 Not Available [address], [address], 12/19/2024 10:11:39 12/12/19 25 12/19/2024 LH LH 3.8 mIU/m L normal Refer ence Range Folli cular Phase 1.9-1 2.5 Mid-C ycle Peak 8.7-7 6.3 Lutea l Phase 0.5-1 6.9 Postm enopa usal 10.0- 54.7 Not Available [address], [address], 12/19/2024 10:11:39 12/12/19 25 12/19/2024 PROGE STERO NE progesterone <0.5 NG/mL normal Refer ence Range s Femal e Folli cular Phase < 1.0 Lutea l Phase 2.6-2 1.5 Post menop ausal < 0.5 Pregn rita 1st Trime ster 4.1-3 4.0 2nd Trime ster 24.0- 76.0 3rd Trime ster 52.0- 302.0 Not Available [address], [address], 12/19/2024 10:11:40 12/12/19 25 12/19/2024 PROLA CTIN prolactin 6.8 NG/mL normal Refer ence Range Femal es Non-p regna nt 3.0-3 0.0 Pregn ant 10.0- 209.0 Postm enopa usal 2.0-2 0.0 Not Available [address], [address], 12/19/2024 10:11:41 12/12/19 25 12/19/2024 T4, FREE T4, free 1.3 NG/dL 0.8-1. 8 normal Not Available [facility] [address], [address], 12/19/2024 10:11:42 12/12/1912/19/2024 TSH TSH 4.91 mIU/L high Refer ence Range > or = 20 Years 0.40- 4.50 Pregn rita Range s First trime ster 0.26- 2.66 Secon d trime ster 0.55- 2.73 Third trime ster 0.43- 2.91 Not Available [address] [facility] [address] [place], [address], 12/19/2024 10:11:43 12/12/1912/19/2024 VITAM IN B12 vitamin [...] pg/mL will have sympt oms. Not Available [facility] [address] [place], [address], 12/19/2024 10:11:44 12/12/1912/19/2024 ESTRA DIOL estradiol 48 [...] is recom minh d (orde r code 85295 ). Moira lee note: patie nts being treat ed with [...] s. [facility] order code 46174 -Estr adiol , Ultra sensi tive LC/MS /MS demon strat es negli gible cross react ivity with fulve stran t. Not Available [facility] [address] [place], [address], 12/19/2024 10:11:44 12/12/1912/19/2024 T3, FREE T3, free 3.0 pg/mL 2.3-4. 2 normal Not Available [facility] [address] [address] [place], [address], 12/19/2024 10:11:45 12/12/1912/19/2024 B TYPE NATRI URETI [...] ol. 2002; 40:97 6-982 . Not Available [facility] [address] [place], [address], 12/19/2024 10:11:46 12/12/1912/19/2024 VITAM IN D,25- [place],TO [...] /MS is recom minh d: order code 35471 (ria ents >2yrs ). See Note 1 Note 1 For addit ional infor moira meraz e refer to http: //[facility] catsilvana gavin.Que stDia gnost ics.c om/fa q/FAQ 199 (This link is being provi ded for infor celeste farah/ rosanne cook purpo ses only. ) Not Available [address] [facility] [address] [place], [address], 12/19/2024 10:11:47 12/12/1912/19/2024 MAGNE SIUM, RBC magnesium, [...] is used for clini orville purpo ses. MDF med fusio n [address] [facility] [address] [facility] [address] [phone] Sheba Bell MD, PhD Not Available [address] [facility] [address] [place], [address], 12/19/2024 10:11:48 02/05/2002/04/2025 CBC WBC 7.4 x10 4.0-10 .5 Not Available [facility] [address] [address], [place], [address], 02/04/2025 16:07:07 02/05/2002/04/2025 CBC RBC 4.16 x10 3.50-5 .50 Not Available [facility] [address], [place], [address], 02/04/2025 16:07:07 02/05/2002/04/2025 CBC HGB 12.0 g/dL 12.0-1 6.0 Not Available [facility] [address], [place], [address], 02/04/2025 16:07:07 02/05/2002/04/2025 CBC HCT 37.3 % 37.0-4 7.0 Not Available [facility] [address], [place], [address], 02/04/2025 16:07:07 02/05/2002/04/2025 CBC MCV 89.7 fL 80.0-9 9.9 Not Available [facility] [address], [place], [address], 02/04/2025 16:07:07 02/05/2002/04/2025 CBC MCH 28.8 pg 27.0-3 2.0 Not Available [facility] [address] [facility] [address] [address], [place], [address], 02/04/2025 16:07:07 02/05/2002/04/2025 CBC MCHC 32.1 g/dL 32.0-3 6.0 Not Available [facility] [address] [facility], [place], [address], 02/04/2025 16:07:07 02/05/2002/04/2025 CBC RDW 14.7 % 11.5-1 4.5 high Not Available [facility] [address] [facility], [place], [address], 02/04/2025 16:07:07 02/05/2002/04/2025 CBC plt 263.1 x10 140.0- 451.0 Not Available [facility] [address] [facility] [address] [facility], [place], [address], 02/04/2025 16:07:07 02/05/2002/04/2025 CBC lymphocytes % 19.6 % 20.0-5 0.0 low Not Available [facility] [address] [facility] [address] [facility], [place], [address], 02/04/2025 16:07:07 02/05/2002/04/2025 CBC granulcytes % 68.6 % 30.0-7 0.0 Not Available [facility] [address] [facility] [address], [place], [address], 02/04/2025 16:07:07 02/05/2002/04/2025 CBC monocytes % 8.7 % 2.0-16 .0 Not Available [facility] [address] [facility] [address] [facility], [place], [address], 02/04/2025 16:07:07 02/05/20 25 02/04/2025 CBC granulcytes# 5.1 x10 Not Danielle ilable [facility] [address] [facility] [address] [facility], [place], [address], 02/04/2025 16:07:07 02/05/2002/04/2025 CBC lymphocytes # 1.5 x10 Not Available [facility] [facility] [address] [facility] [address], [place], [address], 02/04/2025 16:07:07 02/05/20 25 02/04/2025 CBC monocytes # 0.7 x10 Not Avai lable [facility] [place] [facility] [address] [facility], [place], [address], 02/04/2025 16:07:07 02/05/2002/04/2025 CMP (MALE ) glucose 116.0 mg/dL 60.0-9 9.0 high Not Available [place] [facility] [address] [facility], [place], [address], 02/04/2025 16:51:05 02/05/20 25 02/04/2025 CMP (MALE ) BUN (blood urea nitrogen) 8.0 mg/dL 10.0-2 6.0 low Not Available [place] [facility] [address] [facility], [place], [address], 02/04/2025 16:51:05 02/05/20 25 02/04/2025 CMP (MALE ) creatinine (serum) 0.7 mg/dL 0.4-1. 5 Not Available [facility] [address] [facility], [place], [address], 02/04/2025 16:51:05 02/05/2002/04/2025 CMP (MALE ) BUN/creatini ne ratio 11.43 ratio Not Available [facility] [address] [facility], [place], [address], 02/04/2025 16:51:05 02/05/20 25 02/04/2025 CMP (MALE ) eGFR calculated 96.2 Not Available [facility] [address] [facility], [place], [address], 02/04/2025 16:51:05 02/05/2002/04/2025 CMP (MALE ) total protein 7.1 g/dL 6.0-8. 5 Not Available [facility] [address] [facility], [place], [address], 02/04/2025 16:51:05 02/05/2002/0402/04/2025 CMP (MALE ) total bilirubin 1.8 mg/dL 0.2-1. 3 high Not Available [facility] [address] [facility] 1, [place], [address], 02/04/2025 16:51:05 02/05/20 25 02/04/2025 CMP (MALE ) albumin 4.1 g/dL 3.5-5. 5 Not Available [facility] [place] [address] [facility] 1, [place], [address], 02/04/2025 16:51:05 02/05/2002/04/2025 CMP (MALE ) globulin 3.0 calc Not Available [facility] [address] [facility], [place], [address], 02/04/2025 16:51:05 02/05/2002/04/2025 CMP (MALE ) AST (SGOT) 76.0 U/L 0.0-46 .0 high Not Available [facility] [place] [address] [facility] 1, [place], [address], 02/04/2025 16:51:05 02/05/20 25 02/04/2025 CMP (MALE ) altv (SGPT) 81.0 U/L 13.0-6 9.0 abnormal Not Available [facility] [place] [address] [facility] 1, [place], [address], 02/04/2025 16:51:05 02/05/20 25 02/04/2025 CMP (MALE ) A/G ratio 1.4 ratio Not Available [facility] [address] [facility] 1, [place], [address], 02/04/2025 16:51:05 02/05/20 25 02/04/2025 CMP (MALE ) ALP phos 82.0 U/L 30.0-1 40.0 normal Not Available [facility] [place] [address] [facility], [place], [address], 02/04/2025 16:51:05 02/05/2002/04/2025 CMP (MALE ) calcium 9.0 mg/dL 8.4-10 .5 Not Available [facility] [place] [address] [place] Y[address] [facility], [place], [address], 02/04/2025 16:51:05 02/05/2002/04/2025 CMP (MALE ) sodium 134.0 mmol/ L 136.0- 145.0 low Not Available [facility] [place] [facility] [address] [place] Yare[address] [facility], [place], [address], 02/04/2025 16:51:05 02/05/2002/04/2025 CMP (MALE ) potassium 3.6 mmol/ L 3.5-5. 1 Not Available [facility] [place] [address] [place] Ricardoe [facility], [place], [address], 02/04/2025 16:51:05 02/05/2002/04/2025 CMP (MALE ) chloride 98.0 mmol/ L 98.0-1 10.0 normal Not Available [facility] [place] [address] [place] Y[address] [facility] 1, [place], [address], 02/04/2025 16:51:05 02/05/2002/04/2025 CMP (MALE ) C02 28.0 mmol/ L 22.0-3 1.0 Not Available [facility] [place] [address] [place] [address] [facility] 1, [place], [address], 02/04/2025 16:51:05 02/05/2002/04/2025 CMP (MALE ) anion gap 8.0 calc Not Available [facility] [address] [place] [address] [facility], [place], [address], 02/04/2025 16:51:05 02/05/2002/04/2025 CMP (MALE ) osmolality 276.5 calc Not Available [facility] [address] [facility] 1, [place], [address], 02/04/2025 16:51:05 02/05/2002/06/2025 CULTU RE, URINE , ROUTI NE culture, urine, routine SEE NOTE CULTU RE, URINE , ROUTI NE Micro Numbe r: [id number] Test Statu s: Final Speci men Sourc e: Urine , clean catch Speci men Quali ty: Adequ ate Resul t: Less than 10,00 0 CFU/m L of singl e Gram posit zofia organ ism isola trell. No furth er testi ng will be perfo rmed. If clini raul indic ated, recol lecti on using a metho d to minim ize conta minat ion, with promp t trans janine to Urine Cultu re Trans port Tube, is recom minh d. Not Available [facility] [address] [place], [address], 02/06/2025 01:40:59 02/05/2002/04/2025 urina lysis , dipst ick Leukocytes Negati ve Not Available [facility] ([facility]) [address] [place], [address], 02/04/2025 14:01:17 02/05/2002/04/2025 urina lysis , dipst ick Nitrite negati ve Not Available [facility] ([facility]) [address] [place], [address], 02/04/2025 14:01:17 02/05/2002/04/2025 urina lysis , dipst ick Urobilinogen .2 Not Available [facility] ([facility]) [address] [place], [address], 02/04/2025 14:01:17 02/05/2002/04/2025 urina lysis , dipst ick Protein Trace Not Available [facility] ([facility]) [address] [place], [address], 02/04/2025 14:01:17 02/05/2002/04/2025 urina lysis , dipst ick pH 7.0 Not Available [facility] ([facility]) [address] [place], [address], 02/04/2025 14:01:02/05/2002/04/2025 urina lysis , dipst ick Blood Non-He molyze d: Trace Not Available [facility] ([facility]) [address] [place], [address], 02/04/2025 14:01:17 02/05/2002/04/2025 urina lysis , dipst ick Specific [place] 1.015 Not Available [facility] ( [facility]) [address] [place], [address], 02/04/2025 14:01:17 02/05/2002/04/2025 urina lysis , dipst ick Ketone Trace Not Available [facility] ([facility]) [address] [place], [address], 02/04/2025 14:01:02/05/2002/04/2025 urina lysis , dipst ick Bilirubin Negati ve Not Available [facility] ([facility]) [address] [place], [address], 02/04/2025 14:01:17 02/05/2002/04/2025 urina lysis , dipst ick Glucose Negati ve Not Available [facility] ([facility]) [address] [place], [address], 02/04/2025 14:01:17 02/05/2002/04/2025 urina lysis , dipst ick Appearance Clear Not Available [facility] ([facility]) [address] [place], [address], 02/04/2025 14:01:17 02/05/2002/04/2025 urina lysis , dipst ick Color Dark Yellow Not Available [facility] ([facility]) [address] [place], [address], 02/04/2025 14:01:17 02/07/2002/06/2025 US, liver No observ ation record ed. [facility] [address] [place], [address], 02/12/2025 18:00:20 02/16/2002/14/2025 MAMMO , scree yasmeen, digit al, bilat eral No observ ation record ed. [facility] [address] [place], [address], 02/18/2025 11:25:59 Result Notes None recorded. Problems Name Problem SNOMED Code Status Onset Date Resolution Date Notes Provider Name and Address Organization Details Recorded Time Axillary lymphadenop athy 318685840 Active CEE CORONEL, [address], [address], [facility] 15:46:59 Deep venous thrombosis of upper extremity 794169676 Active CEE CORONEL, [address], [address], [facility] 15:46:59 Chronic obstructive pulmonary disease 29051054 Active CEE CORONEL, [facility] [address] [place] [address], [address], [facility] 15:46:59 History of supraventri cular tachycardia [id number] 4101 Rachel CORONEL, [address], [address] , [facility] 15:46:59 Amenorrhea [id number] Rachel CORONEL, [address] , [facility] 15:46:59 Secondary amenorrhea [id number] Rachel CORONEL, [address] , [facility] 15:46:59 Past history of section [id number] Rachel CORONEL, [address] , [facility] 15:46:59 History of operative procedure on foot [id number] 9103 Rachel CORONEL, [address] , [facility] 15:46:59 Pleurisy [id number] Rachel CORONEL, [address] , [facility] 15:46:59 Rheumatoid arthritis of knee [id number] Rachel CORONEL, [address] , [facility] 15:46:59 Seropositiv e rheumatoid arthritis [id number] Rachel CORONEL, [address] , [facility] 15:46:59 Weight increased [id number] Rachel CORONEL, [address], [address], [facility] 5 15:46:59 Occlusion of artery [id number] Rachel CORONEL, [address], [address] [place] [address] 5, [facility] 5 15:46:59 Chest pain [id number] Rachel CORONEL, [address], [address] [place] [address], [facility] 5 17:29:16 Patient encounter status [id number] Rachel CORONEL, [address], [address] [place] [address], [facility] 5 17:29:16 Thyroid stimulating hormone level above reference range [id number] Rachel CORONEL, [address], [address] , [facility] 5 15:46:59 Depressive disorder [id number] Rachel CORONEL, [address], [address] , [facility] 15:46:59 Allergic reaction to animal [id number] Rachel CORONEL, [address], [address] [place] [address], [facility] 15:46:59 Environment al allergy [id number] Rachel CORONEL, [place] [address], [facility] 5 15:46:59 History of tonsillecto [id number] Rachel CORONEL, [address], [address] [place] [address] 5, [facility] 5 15:46:59 Abnormal uterine bleeding [id number] 0 Rachel CORONEL, [place] [address], [facility] 5 15:46:59 Taking high risk medication [id number] 07 Rachel CORONEL, [place] [address] 5, [facility] 15:46:59 Anxiety [id number] Rachel CORONEL, [place] [address] 5, [facility] 5 17:29:16 Oligomenorr hea [id number] Rachel CORONEL, [place] [address], [facility] 15:47:00 Pain of breast [id number] Rachel CORONEL, [place] [address], [facility] 15:47:00 Dyspnea on exertion [id number] Rachel CORONEL, [place] [address] 5, [facility] 15:47:00 Diarrhea [id number] Rachel CORONEL, [place] [address] 5, [facility] 15:47:00 Costal chondritis 48333142 Active CEE CORONEL, [address], [address], [facility] 15:47:00 Obstructive sleep apnea syndrome [id number] Rachel CORONEL, [address], [address], [facility] 15:47:00 COVID-19 [id number] Rachel CORONEL, [address], [address], [facility] 15:47:00 Ex-smoker [id number] Rachel CORONEL, [address], [address], [facility] 15:47:00 Left ventricular ejection fraction decreased [id number] Rachel CORONEL, [address], [address], [facility] 15:47:00 Anxiety attack [id number] Rachel CORONEL, [address], [address], [facility] 14:57:08 Enzyme level - finding [id number] Rachel CORONEL, [address], [address], [facility] 14:57:38 Abnormal feces [id number] Rachel CORONEL, [address], [address] , [facility] 5 17:24:06 Acute low back pain 379426211 Active CEE CORONEL, [address], [address], [facility] 5 17:24:06 Menometrshraddha hudsonia 293559394 Active CEE CORONEL, [address], [address], [facility] 5 17:24:06 Pyuria 8450973 Active CEE CORONEL, [address], [address] [place] [address] 5, [facility] 5 17:24:06 History of cholecystec michelle 785543202 Active 2018 CEE CORONEL, [address], [address], [facility] 5 15:46:59 Restrictive lung disease 44820496 Active 2023 AMY moreno [facility] 4 10:42:04 Supraventri cular tachycardia 0030156 Active 2023 CEE CORONEL, [address], [address], [facility] 5 17:29:16 Gastroesoph ageal reflux disease without esophagitis 771973598 Active 2023 AMY moreno [facility], [facility] 4 10:42:22 Iron deficiency anemia 18921174 Active 2023 AMY moreno [facility] 4 10:42:38 Mixed anxiety and depressive disorder 257334087 Active 2023 AMY SOPHIA [facility] LKirt[facility]irt 10:42:51 Vitamin D deficiency 26883105 Active 2023 AMY CORTES [facility], LKirtL[facility]irtCKirt 10:43:05 Problem Notes None recorded. Procedures Surgical History Date Name Laterality Status Provider Name and Address Organization Details Recorded Time 02/15/20 25 mammography completed [facility] 02/18/2025 11:27:03 02/07/20 25 ultrasonography of liver completed [facility] 02/12/2025 18:00:03 01/26/[address] of abdomen and pelvis completed [facility] 01/28/2025 19:26:53 11/08/19 24 mammography completed [facility] 11/11/2023 18:42:32 06/09/19 22 screening mammography completed [facility] 10/11/2023 10:41:26 Tubal Ligation completed [facility] 06/09/2023 13:17:22 Tonsillectomy completed [facility] 06/09/2023 13:17:27 Cholecystectomy completed [facility] 06/09/2023 13:17:46 Imaging Results None recorded. Procedure Notes None recorded. Medical Equipment None Reported. Allergies Allergen ID Allergen Name Allergen Category Reaction Reaction Severity Criticality Documentation Date Start Date Code Code System Note Provider Name and Address Organization Details Recorded Time 58330 Bactrim medicatio n hives moderate high 11/20/2022 50796 9 RxNorm [facility] 14:24:41 60552 sulfameth oxazole medicatio n Not available Not available Not available 11/27/20242024 70164 RxNorm CEE CORONEL, [facility] [address] [place], [address], [facility] 17:23:55 81484 trimethop rim medicatio n Not available Not available Not available 11/27/20242024 93341 RxNorm CEE CORONEL, [facility] [address] [place], [address], [facility] 17:23:55 41270 bupropion Not available Not available Not available Not available 11/27/20242024 01940 RxNorm CEE CORONEL, [facility] [address] [place], [address], [facility] 17:23:55 Medications Name Sig Start Date Stop Date Status Note LastModified by Organization Details LastModified Time amoxicill in 500 mg capsule TAKE 1 CAPSULE BY MOUTH EVERY 8 HOURS FOR 7 DAYS 11/12 completed Not Available Not Available Not Available buspirone 5 mg tablet 10 mg by oral route. 2024 active Not Available Not Available Not Avai lable bupropion HCl SR 150 mg tablet,12 hr sustained -release TAKE 1 TABLET BY MOUTH TWICE DAILY 09/07 completed Not Available Not Available Not Available vitamin A 2,400 mcg capsule Take 2400 microgra ms by oral route. 02/04 completed Not Available Not Available Not Available olanzapin e 5 mg tablet 5 mg by oral route. 11/22 completed Not Available Not Available Not Available Zyrtec 10 mg tablet daily 09/07 completed 0; Recorded 06/18/19 23 8:54AM by Amy Cortes CMT, Office Visit; Not Available Not Available Not Available levothyro xine 25 mcg tablet Take 1 tablet by mouth once daily for 30 days 2024 active Not Available Not Available Not Avai lable cyanocoba suzanna (vit B-12) 50 mcg tablet [...] Avai lable bupropion HCl 75 mg tablet Take 75 mg by oral route. 02/04 completed Not Available Not Available Not Available omeprazol e 20 mg capsule,d elayed release [...] Not Available Not Available Not Avai lable ondansetr on 4 mg disintegr ating tablet 4 mg by oral route. 2024 active Not Available Not Available Not Avai lable cefdinir 300 mg capsule TAKE 1 CAPSULE BY MOUTH TWICE DAILY FOR 10 DAYS 02/06 completed Not Available Not Available Not Available bupropion HCl XL 150 mg 24 hr [...] Available Not Available Not Available Vitamin D3 2024 active Not Available Not Available Not Avai lable bupropion HCl two times daily 06/02 completed [...] Not Available Not Available No t Available tranexami c acid 650 mg tablet 650 mg by oral route. 2024 active Not Available Not Available Not Avai lable Vitals Date Recorded Body height Oxygen saturation Oxygen saturation in Arterial blood by Pulse oximetry Heart rate Respiratory rate Provider Name and Address Organization Details Last Updated DateTime 5 165.1 cm 98 % 98 % 82 /min 22 /min AMY CORTES [facility] 5 11:45:01 Date Recorded Body height Body mass index (BMI) Body weight Oxygen saturation Oxygen saturation in Arterial blood by Pulse oximetry Heart rate Body temperature Systolic And Diastolic Provider Name and Address Organization Details Last Updated DateTime 5 165.1 cm 73.6 kg/m2 714026. 83 g 98 % 98 % 84 /min 97.9 [degF] 136/86 mm[Hg] SOPHIA [facility] 5 14:37:11 Date Recorded Body height Body mass index (BMI) Body weight Oxygen saturation Oxygen saturation in Arterial blood by Pulse oximetry Heart rate Body temperature Systolic And Diastolic Provider Name and Address Organization Details Last Updated DateTime 5 165.1 cm 71 kg/m2 005923. 45 g 98 % 98 % 79 /min 97.9 [degF] 128/64 mm[Hg] Dana Domínguez [facility] 5 14:14:33 Date Recorded Body height Body mass index (BMI) Body weight Oxygen saturation Oxygen saturation in Arterial blood by Pulse oximetry Heart rate Respiratory rate Systolic And Diastolic Provider Name and Address Organization Details Last Updated DateTime 5 165.1 cm 71.4 kg/m2 806221. 13 g 98 % 98 % 88 /min 24 /min 136/94 mm[Hg] AMY CORTES [facility] 5 14:38:34 Social History Question Answer Notes LastModified by Organizat ion Details LastModified Time Tobacco Smoking Status Former Smoker Quit age 33 AMY CORTES [facility] 06/09/2023 13:13:29 When Did You Quit Smoking? 11-15yearssi [email or web address] [email or web address] Information not available 01/07/2025 What Was The Date Of Your Most Recent Tobacco Screening? 02/04/2025 [email or web address] Information not available 02/04/2025 What Is Your Current Pack Years? 10-19packyea rs Information not available 01/07/2025 What Is Your Relationship Status? [email or web address] Information not available 06/09/2023 At What Age Did You Start Smoking Tobacco? 17 Information not available 01/07/2025 How Much Tobacco Do You Smoke? No Information not available 01/07/2025 How Many Years Have You Smoked Tobacco? 16 Information not available 01/07/2025 Sex: Unknown Functional Status Question Answer Note LastModified by Organizat ion Details LastModified Time Do you use any illicit or recreational drugs? No [email or web address] Information not available 06/09/2023 Do you or have you ever used any other forms of tobacco or nicotine? No Information not available 01/07/2025 What is your level of alcohol consumption? None [email or web address] Information not available 06/09/2023 Are you currently employed? No [email or web address] Information not available 06/09/2023 Are you able to care for yourself independently? Yes [email or web address] Information not available 06/09/2023 Do you or have you ever used any nicotine-free cigarettes, vape, or chewing tobacco? No Information not available 01/07/2025 Mental Status None recorded. Family History Relationship Description Onset Age of this Age Resolved Age Notes LastModified by Organization Details LastModified Time Mother Essential hypertension Not available 13:14:40 Mother Asthma [email or web address] Not available 10/11/2023 10:38:11 Mother Myocardial infarction [email or web address] Not available 09/23 10:39:53 Father Drug abuse Meth addict ion/de ceased age 64 [email or web address] Not available 06/09/2023 13:16:44 Father Type 2 diabetes mellitus Not available 06/09 13:17:09 Paternal Grandfather Type 2 diabetes mellitus [email or web address] Not available 10/10 10:39:11 Paternal Grandfather Essential hypertension Not available 10:38:40 Maternal Grandmother Malignant neoplasm of uterus Not available 10/10 10:38:24 Paternal Grandmother Essential hypertension [email or web address] Not available 10:38:51 Paternal Grandmother Coronary arterioscler osis [email or web address] Not available 10/10 10:40:07 Brother Type 2 diabetes mellitus [email or web address] Not available 10/10 10:39:17 Maternal Grandfather Myocardial infarction [email or web address] Not available 09/23 10:39:53 Medical History Condition Response Anxiety Disorder Y Hypothyroidism Y Depression Y Gynecological HistoryNo gynecological history recorded. Obstetrics History GPAL:G 0 P 0 0 0 0 Immunizations Vaccine Type Date Status Note Provider Nam e and Address Organization Details Recorded Time Td (adult), 2 Lf tetanus toxoid, preservative free, adsorbed 5 completed CEE CORONEL, [facility] [address] [place], [address], [facility] 06/09/2023 13:35:36 Influenza, split virus, trivalent, preservative 4 completed CEE CORONEL, [address], [address], [facility] 06/09/2023 13:35:36 Influenza, split virus, trivalent, preservative 5 completed CEE CORONEL, [address], [address], [facility] 06/09/2023 13:35:36 Influenza, split virus, trivalent, preservative 0 completed CEE CORONEL, [address], [address], [facility] 06/09/2023 13:35:36 Influenza, split virus, trivalent, preservative 3 completed CEE CORONEL, [address], [address], [facility] 06/09/2023 13:35:36 Td(adult) unspecified formulation 2 completed CEE CORONEL [address], [address], [facility] 06/09/2023 13:35:36 Past Encounters Encounter ID Performer Location Encounter Start Date Encounter Closed Date Diagnosis/Indication Diagnosis SNOMED-CT Code Diagnosis ICD10 Code Diagnosis IMO Codes Diagnosis Note [id number] CEE CORONEL [facility] ([facility]) [address] [place] [address] 06/09/2023 12:21:11 06/09/2023 13:46:28 Mixed anxiety and depressive disorder 534377375 F41.8 Adult heal th examination 059171827 Z00.00 Recent was seen for her well woman visit with Dr. Estrella and he has referred her to see endocrinol ogy because her thyroid level was off. Allergy to food 83682981 1 T78.1XXA Diarrhea, bloating, excessive gas, belly pain. [id number] CEEAngie CORONEL [facility] ([facility]) [address] [place] [address] 09/08/2023 13:50:29 09/08/2023 14:49:46 Moderate recurrent major depression 07577575 F33.1 Screening mammography 24 046365 Z12.31 [id number] CEE CORONEL [facility] ([facility]) [address] [place], [place] [address] 10/11/2023 13:55:16 10/11/2023 15:10:28 Depressive disorder 22216734 F32.9 She has not been able to set up counseling yet. [id number] CEE CORONEL [facility] ([facility]) [address] [place], [place] [address] 11/10/2023 14:23:17 11/10/2023 15:18:38 Mixed anxiety and depressive disorder 720028141 F41.8 [id number] [facility] [address] [place] [address] [id number] 5 11/13/2024 10:14:19 11/13/2024 11:28:35 Depressive disorder 22092130 F33.1 Chronic diarrhea 4385085 09 K52.9 85544 Reports she has diarrhea now immediatel y after she eats. She feels nauseated after eating and then tired after having a bowel movement. Fatigue 14073750 R53.83 [id number] Tired a lot. [id number] CEEAngie CORONEL [facility] ([facility]) [address] [place] [phone] 5 11/27/2024 14:59:09 11/27/2024 16:28:47 Depressive disorder 54612010 F33.1 Generalize d anxiety disorder 39468683 F41.1 247936 Continue buspirone. [id number] CEE CORONEL [facility] ([facility]) [address] [place] [phone] 5 12/04/2024 14:39:19 12/04/2024 17:00:32 Generalized anxiety disorder 80888857 F41.1 707957 Continue buspirone. Moderate r ecurrent major depression 13080002 F33.1 Paroxetine made her feel too flat. Did not tolerate Wellbutrin . Muscle pain 72374913 M79 .10 75660 Edema of l ower extremity 810427394 R60.0 39619 [id number] ANTONY NICHOLS [facility] ([facility]) [address] [place], [place] [address] 12/11/2024 09:18:31 12/14/2024 13:05:38 Oligomenorrhea 63808058 N91.5 Secondary amenorrhea 156 808080 N91.1 Muscle pain 01787188 M79 .10 824282 [id number] ANTONY NICHOLS [facility] ([facility]) [address] [place], [place] [address] 12/18/2024 11:20:27 12/27/2024 07:53:51 Acquired hypothyroidism [id number] E03.9 23933 Panic disorder 325356750 F41.0 62610 Moderate r ecurrent major depression 31276513 F33.1 Paroxetine made her feel too flat. Did not tolerate Wellbutrin . [id number] ANTONY NICHOLS [facility] ([facility]) [address] [place], [place] [phone] 01/07/2025 13:55:34 01/07/2025 15:31:28 Mixed anxiety and depressive disorder 342007850 F41.8 Doing well with the Buspirone. Liver enzy mes level above reference range 777453160 R74.8 499065 Snoring 88663195 R06.83 07677 Chronic insomnia 6097335 04 F51.04 486354 She will take melatonin as needed. [id number] DEDRICK BLAS APRN [facility] ([facility]) [address] [place] [phone] 5 02/04/2025 13:57:26 02/04/2025 16:06:59 Dysuria 56134087 R30.[address] acic back pain 243186818 M54.6 51757158 [id number] ANTONY NICHOLS [facility] ([facility]) [address] [place] [address] 02/06/2025 13:56:21 02/06/2025 15:04:13 Abdominal pain 24992157 R10.9 Right flank pain. Liver ultrasound done today. Screening mammography 24 452337 Z12.31 0851719 Menometrorrhagia 4055760 08 N92.1 [id number] Following with [facility]. Health Concerns Section Related Observation LastModified by Organization Detai ls LastModified Time None Recorded Concern Status LastModified by Organization Details LastModified Time None Recorded Advance Directives Directive None Recorded Payers Insurance Date Sequence Insurance Name Policy Number Policy Jones Covered Member ID Jones Member ID Guarantor Name 01/07/2025 1 *SELF PAY* Janel Goldsmith 02/04/2025 1 [employer] [place] (MEDICAID REPLACEMENT - HMO) [id number] Josette Goldsmith [id number] Josette Goldsmith 02/03/2025 [place] [facility] Josette Goldsmith [id number] Josette Goldsmith Notes Date Note Type Note [...] noted in the HPI ANTONY NICHOLS [address] [place], [address], [facility] 01/01/2025 17:16:32 5 text/html Anxiety/DepressionReporte d by PatientHPIFor severity, patient reportsinterference with activities of daily livingbut reportsdenies suicidal ideationsandable to maintain relationships. For context, patient reportsmajor life stressorsandfamily problems. For associated symptoms, patient reportsdepression,sleep disturbances,sleeping more (hypersomnia),low self-esteem,despair/hopel essness,social withdrawal,decreased effectiveness/productivit y,stomach cramps,diarrhea,decreased energy, andfatigue(nausea, vomiting).ROS as noted in the HPI CEEAngie CORONEL, [address], [address], [facility] 01/07/2025 15:23:24 5 text/html walk inx1 week ago seen in ED due to menstrual issues/bleeding, did UA told slight infection given abx for 10 days, received call and told to stop after 5 days. Pt c/o pain in right side . CT scan was negative for stones DEDRICK BLAS, DIABETOLOGIST [address] [place] [address], [phone], [facility] 02/04/2025 14:43:47 5 text/html Abdominal PainReported by PatientAbdominal PainFor location, patient reportsruq. For severity, patient reportsmoderate. For duration, patient reportsintermittent. For onset/timing, patient reportswax/wane. For associated symptoms, patient reportsno fever. For previous tests, treatment and/or diagnostic procedures, patient reportsct of the abdomen __. CEEAngie CORONEL, [address], [address], [facility] 02/07/2025 17:29:43 OBGyn Episode No OBEpisode recorded.
[2025-02-18] MEDS: ondansetron 2 mg/ML SDV 2 mL 4 MG IVP (13:41)
[2025-02-18 14:12] LABS: Hematocrit 36.8 % (36-47); Hemoglobin 10.60 g/dL (11.27-16.99); Mean Corpuscular HGB Conc 28.8 g/dL (30-55); Mean Corpuscular Hemoglobin 27.0 pg (27-33); Mean Corpuscular Volume 93.6 fl (85-98); Nucleated Red Blood Cells % 0 %; Platelet Count 210 10^3/cmm (157-399); Red Blood Count 3.93 10^6/uL (3.85-5.65); White Blood Count 5.44 10^3/uL (3.29-11.43)
[2025-02-18 14:35] LABS: Troponin(5th) Baseline < 6 ng/L (0-10)
[2025-02-18 14:38] LABS: Alanine Aminotransferase 72 U/L (0-33); Albumin Level 3.7 g/dL (3.5-5.2); Alkaline Phosphatase 85 U/L (35-105); Anion Gap 17.2 (5-19); Aspartate Amino Transferase 58 U/L (0-32); Blood Urea Nitrogen 8 mg/dL (6-20); Calcium 8.6 mg/dL (8.5-10.5); Carbon Dioxide 21 mmol/L (22-29); Chloride 101 mmol/L (98-107); Creatinine Clr Calc Pharmacy 209.0812; Globulin 2.7 g/dL (1.3-4.6); Glucose 98 mg/dL (65-115); Lipase 22 U/L (13-60); Osmolality Calculated 278 mOsm/kg (285-295); Potassium 4.2 mmol/L (3.5-5.1); Sodium 135 mmol/L (136-145); Total Protein 6.4 g/dL (6.6-8.7)
[2025-02-18 14:53] VITALS: BP 156/94; PULSE 67; O2SAT 100
== END 2025-02-18 14:56 | disposition home or self-care (01) ==
PROVIDERS: Emergency Provider Emergency Medicine; PCP Nurse Practitioner Family
DX: R07.89 Other chest pain (principal); Z87.891 Personal history of nicotine dependence
CPT/HCPCS: 36415; 71045; 80053; 83690; 84484; 85025; 85378; 93005; 96374; 96375; 99285; J1885; J2405; J9999

== ENCOUNTER 2025-02-21 12:03 | Outpatient (CLI) | payer BC, MEDICAID, SELFPAY | END 2025-02-21 12:04 | disposition home or self-care (01) | LOC: SLEEP 12:04 | PROVIDERS: PCP Nurse Practitioner Family; Referring Provider Nurse Practitioner Family; Visit Provider Internal Medicine Pulmonary Disease | DX: G47.33 Obstructive sleep apnea (adult) (pediatric) (principal); G47.36 Sleep related hypoventilation in conditions classified elsewhere | CPT/HCPCS: G0399 ==

== ENCOUNTER → 2025-02-26 13:14 | Outpatient (BNVA) | payer BC, MEDICAID, SELFPAY | PROVIDERS: PCP Nurse Practitioner Family; Visit Provider Obstetrics & Gynecology | DX: N93.9 Abnormal uterine and vaginal bleeding, unspecified (principal); R93.89 Abnormal findings on diagnostic imaging of other specified body structures | CPT/HCPCS: 76830; 76856 ==

== ENCOUNTER 2025-04-04 09:11 | Outpatient (CLI) | payer BC, MEDICAID, SELFPAY ==
--- NOTE | 2025-04-04 09:15 | USCV_ITS ---
Agus Josette Age: 44 Gender: F : 1980 Exam Date: 04/04/2025 09:29 Ordering Phys: Dariel Casas MD ([email or web address]) Technologist: SIXTO Exam Location: [facility] Indication: CP BP: 136 / 72 HR: 70 Rhythm: Sinus Technical Quality: Adequate MEASUREMENTS (Male / Female) Normal Values 2D ECHO LV Diastolic Diameter PLAX 5.4 cm 4.2 - 5.9 / 3.9 - 5.3 cm IVS Diastolic Thickness 0.9 cm 0.6 - 1.0 / 0.6 - 0.9 cm IVS Systolic Thickness 0.9 cm LVPW Diastolic Thickness 1.0 cm 0.6 - 1.0 / 0.6 - 0.9 cm LVPW Systolic Thickness 0.9 cm LVOT Diameter 2.1 cm LV Ejection Fraction 2D Teich 28.9 % LV Ejection Fraction MOD 4C 51.9 % LV Ejection Fraction MOD 2C 51.8 % LV Ejection Fraction 2C AL 54.4 % LA Diameter 3.6 cm RA Systolic Volume 4C AL 23.9 ml RA Systolic Volume 4C MOD 23.4 ml LA Sys Volume AL 53.2 cm cubed LA Sys Volume Index AL 17.3 cm cubed/m squared Aorta at Sinotubular Diameter 2.3 cm M-MODE LA Ao Ratio MM 1.5 AV Cusp Separation MM 2.3 cm DOPPLER AV Peak Velocity 123.0 cm/s LVOT Peak Velocity 92.0 cm/s AV Area Cont Eq vti 2.8 cm squared AV Area Cont Eq pk 2.5 cm squared MV Peak Velocity 71.0 cm/s MV Area PHT 5.3 cm squared Mitral E to A Ratio 0.7 TR Peak Velocity 124.0 cm/s TR Peak Gradient 6.2 mmHg TV Peak E Velocity 75.0 cm/s PV Peak Velocity 82.0 cm/s FINDINGS Left Ventricle Normal left ventricular size, systolic function and wall thickness with no regional wall motion abnormality. Left ventricular ejection fraction is 54%. Normal left ventricular diastolic function. Right Ventricle Normal right ventricular size and systolic function. RVSP could not be calculated due to incomplete tricuspid regurgitation velocity profile. Right Atrium Normal right atrial size. Left Atrium Normal left atrial size. IA Septum Normal appearance of the interatrial septum. Mitral Valve Normal mitral valve structure. No mitral valve stenosis or regurgitation. Aortic Valve Normal aortic valve structure. No aortic valve stenosis or regurgitation. Tricuspid Valve Normal tricuspid valve structure. No tricuspid valve stenosis or regurgitation. Pulmonic Valve Normal pulmonic valve structure. No pulmonic valve stenosis or regurgitation. Pericardium No pericardial effusion. Aorta Normal diameter of the aortic root and ascending thoracic aorta. IVC Normal IVC diameter. CONCLUSIONS Technically difficult study Normal left ventricular size, systolic function and wall thickness with ejection fraction of 54%. Normal right ventricular size and systolic function. No significant valvular abnormalities. Dariel Casas MD, FACC (Electronically Signed) Final Date: 04 April 2025 18:04 S
== END 2025-04-04 09:12 | disposition home or self-care (01) ==
LOC: RAD 09:12
PROVIDERS: PCP Nurse Practitioner Family; Visit Provider Internal Medicine Cardiovascular Disease
DX: R07.9 Chest pain, unspecified (principal)
CPT/HCPCS: 93306